=== PATIENT | female | born 1975 | race Caucasian/White ===

== ENCOUNTER 2018-01-22 05:45 | Emergency (ER) | payer BC, SELFPAY ==
[2018-01-22 05:46] VITALS: BP 158/87; PULSE 83; RESP 16; TEMP 36.7; O2SAT 100; BMI 38.6
--- NOTE | 2018-01-22 06:04 | CT_ITS ---
STUDY: CT ABDOMEN AND PELVIS WITHOUT CONTRAST REASON FOR EXAM: Female, 42 years old. Abdominal pain RADIATION DOSAGE (If Supplied By Facility): CTDIvol = ( 23.40 ) mGy, DLP = ( 1303.76 ) mGycm TECHNIQUE: Transaxial images were obtained from the dome of the diaphragm to the symphysis pubis without oral contrast, and without intravenous contrast. Sagittal and coronal images were reconstructed. Individualized dose optimization techniques were used for this CT. COMPARISON: 08/09/2017 FINDINGS: The visualized lung bases are unremarkable. There are nonenlarged calcified mediastinal and RIGHT hilar lymph nodes. Normal liver. Normal gallbladder and extrahepatic biliary system. Normal spleen. Normal pancreas. Normal bilateral adrenal glands. Normal right kidney. Normal left kidney. Normal visualized stomach. Normal small intestine. Normal colon. The appendix is visualized and appears normal. Normal abdominal aorta. Normal inferior vena cava. Normal retroperitoneum. Normal urinary bladder. The uterus and ovaries are unremarkable There is NO ascites, free air, abscess or adenopathy. Normal abdominal wall. Normal osseous structures. CT/Abdomen/Pelvis without Cont IMPRESSION: There are are NO kidney stones. There is NO hydronephrosis. Normal visualized stomach. Normal small intestine. Normal colon. The appendix is visualized and appears normal. The uterus and ovaries are unremarkable There is NO ascites, free air, abscess or adenopathy. Electronically Signed: Vasiliy Damon MD at 6:47 EDT , Service support ,
--- NOTE | 2018-01-22 06:05 | ED.VISSUMM ---
- ER Visit Summary Date of Service: 01/22/18 Chief Complaint: Abdominal pain] History of Present Illness: The patient is a 42 F [presents the emergency department with abdominal pain. She has had 2 episodes of sharp severe fleeting pain in the mid upper abdomen and left upper quadrant. She is nauseated. No vomiting. Bowel movements have been normal. No fevers or chills. Eating did not make it worse. She had emergency surgery for an incarcerated hernia 6 months ago. She has no other abdominal surgeries medical problems] Physical Examination: [] 158/87 WN WD NAD PERRL EOMI MMM NECK supple and nontender, no masses RRR no murmur rub or gallop, no peripheral edema, symmetric radial pulses CTAB no respiratory distress ABDOMEN is soft quadrant tenderness, normal bowel sounds, no distension, no rebound or guarding SKIN is warm and dry no rashes Alert and Oriented x3, CN II-XII in tact, no motor or sensory deficits, gait normal No lymphadenopathy Test Results: [] Emergency Department Course and Treatment: [She remained asymptomatic in the emergency department. She was able to move around without pain. Labs and CT were unremarkable. I did precaution her about reasons for which to return. Pain that stays or gradually worsens. Vomiting. Inability to have a bowel movement or fevers. She understands and is agreeable to the plan she will follow-up with her primary care doctor 5-7 days] Treatment Plan: [] Disposition: [Discharge] Impression: [Mid upper abdominal pain] This note was generated with [employer] dictation software. It may contain incorrect words, spelling, and punctuation that were not noted in review of the chart prior to signing ED Disposition - Plan for ED Patient: Chief Complaint: Abd Pain Referrals: Care Physician,No Primary [Primary Care Provider] -
[2018-01-22 06:18] LABS: Absolute Lymphocyte Count 2.47 X10^3/ul (0.83-4.51); Absolute Neutrophil Count 4.6 X10^3/uL (2.0-7.7); Basophil# 0.04 X10^3/uL; Basophil% 0.5 % (0-1); Eosinophil# 0.38 X10^3/uL; Eosinophils% 4.6 % (0-5); Hematocrit 38.5 % (37-47); Hemoglobin 12.6 g/dl (12.0-15.0); Lymphocyte # 2.47 X10^3/ul (4.0); Mean Corp Hgb Conc 32.7 g/gl (32-36); Mean Corpuscular Hgb 28.4 pg (27.0-32.0); Mean Corpuscular Volume 86.7 fL (81-99); Mean Platelet Vol. 11.9 fl (6.2-12.0); Monocyte# 0.74 X10^3/uL; Neutrophil # 4.58 X10^3/uL (2.7-7.7); Neutrophil % 55.7 % (47-70); Platelet Count 220 K/mm3 (150-450); RBC Distribution Width CV 13.9 % (11.6-14.6); RBC Distribution Width SD 43.6 fl (35.1-43.9); Red Blood Count 4.44 M/mm3 (4.2-5.4); White Blood Count 8.2 K/mm3 (4.4-11.0)
[2018-01-22 06:19] LABS: POSITIVE COUNT NO; POSITIVE DIFFERENTIAL NO; POSITIVE MORPHOLOGY NO
[2018-01-22 06:36] LABS: AST(SGOT) 14 U/L (15-37); Alanine Aminotransfer ALT/SGPT 10 U/L (13-56); Albumin, Serum 3.6 g/dL (3.2-5.0); Alkaline Phosphatase 82 U/L (45-117); Anion Gap 7 (5-15); BUN 10 mg/dL (7-18); BUN/Creat Ratio 13.7 RATIO (10-20); Calcium,Total 8.6 mg/dL (8.5-10.1); Chloride 102 mmol/L (98-107); Creatinine, Serum 0.73 mg/dL (0.55-1.02); EST Glomerular Filtration Rate 93 mL/min (>60); Est Glom Filt Rate - Afr Amer 112 mL/min (>60); Estimated Creatinine Clearance 97.63 ml/min; Globulin 3.6 g/dL (2.2-4.2); Glucose 98 mg/dL (74-106); Lipase 134 U/L (73-393); Potassium 3.7 mmol/L (3.5-5.1); Protein, Total 7.2 g/dL (6.4-8.2); Sodium Level 139 mmol/L (136-145)
[2018-01-22 06:36] LABS: Bacteria 0 SEEN /hpf (None Seen); Mucous, Urine 0 SEEN /hpf (<or=2+); Red Blood Cells-Urine 0 SEEN /hpf (0-5); White Blood Cells 0 SEEN /hpf (0-5)
[2018-01-22 06:38] LABS: Color, Urine Straw (Yellow); Glucose, Dipstick Normal (Normal); Ketone-Dipstick Negative (Negative); Leukocyte Esterase-Dipstick Negative /ul (Negative); Nitrite-Dipstick Negative (Negative); Occult Blood-Urine Negative /ul (Negative); Protein-Dipstick Negative (Negative); Urine Bilirubin Dipstick Negative (Negative); Urine Clarity Clear (Clear); Urine Urobilinogen Normal (Normal)
[2018-01-22 06:45] LABS: Squamous Epithelial Cells - UA 0-5 SEEN /hpf (5-10)
--- NOTE | 2018-01-22 06:54 | ED.DEP ---
ED Disposition - Plan for ED Patient: Chief Complaint: Abd Pain Instructions: ED Abdominal Pain Unkn Cause Referrals: Hattie Hale DO [STAFF PHYSICIAN] - 1 Week
[2018-01-22 07:04] VITALS: BP 105/58; PULSE 63; RESP 16; O2SAT 100
== END 2018-01-22 07:05 | disposition home or self-care (01) ==
PROVIDERS: Emergency Provider Emergency Medicine
DX: R10.12 Left upper quadrant pain (principal); R11.0 Nausea; E66.9 Obesity, unspecified
CPT/HCPCS: 74176; 80053; 81001; 83690; 85025; 99283; A4216

== ENCOUNTER → 2019-01-16 12:03 | Outpatient (CLI) | payer BC, SELFPAY ==
[2019-01-16 12:18] LABS: Absolute Lymphocyte Count 1.62 X10^3/ul (0.83-4.51); Absolute Neutrophil Count 6.2 X10^3/uL (2.0-7.7); Basophil# 0.03 X10^3/uL; Basophil% 0.3 % (0-1); Eosinophil# 0.16 X10^3/uL; Eosinophils% 1.8 % (0-5); Hematocrit 39.5 % (37-47); Hemoglobin 13.1 g/dl (12.0-15.0); Lymphocyte # 1.62 X10^3/ul (4.0); Lymphocyte % 18.5 % (19-41); Mean Corp Hgb Conc 33.2 g/gl (32-36); Mean Corpuscular Hgb 29.1 pg (27.0-32.0); Mean Corpuscular Volume 87.8 fL (81-99); Mean Platelet Vol. 11.5 fl (6.2-12.0); Neutrophil # 6.24 X10^3/uL (2.7-7.7); Neutrophil % 71.3 % (47-70); Platelet Count 220 K/mm3 (150-450); RBC Distribution Width CV 13.6 % (11.6-14.6); RBC Distribution Width SD 44.2 fl (35.1-43.9); White Blood Count 8.8 K/mm3 (4.4-11.0)
[2019-01-16 12:19] LABS: POSITIVE COUNT NO; POSITIVE DIFFERENTIAL NO; POSITIVE MORPHOLOGY NO
[2019-01-16 12:56] LABS: Anion Gap 4 (5-15); BUN 15 mg/dL (7-18); BUN/Creat Ratio 22.9 RATIO (10-20); Calcium,Total 8.9 mg/dL (8.5-10.1); Chloride 106 mmol/L (98-107); Creatinine, Serum 0.66 mg/dL (0.55-1.02); EST Glomerular Filtration Rate 105 mL/min (>60); Est Glom Filt Rate - Afr Amer 127 mL/min (>60); Glucose 89 mg/dL (74-106); Potassium 3.7 mmol/L (3.5-5.1); Sodium Level 138 mmol/L (136-145); Thyroid Stim Hormone (TSH) 1.81 uIU/mL (0.358-3.74)
== END ==
PROVIDERS: Visit Provider Family Medicine Geriatric Medicine
DX: E78.5 Hyperlipidemia, unspecified (principal); R53.83 Other fatigue
CPT/HCPCS: 36415; 80048; 84443; 85025

== ENCOUNTER → 2019-03-23 17:20 | Outpatient (CLI) | payer BC, SELFPAY ==
--- NOTE | 2019-03-23 17:42 | RAD_ITS ---
STUDY: X-RAY - LUMBAR SPINE REASON FOR EXAM: Female, 43 years old. Low back pain TECHNIQUE: 3 view(s) of the lumbar spine were obtained. COMPARISON: None FINDINGS: Normal lumbar lordosis. There is no substantial scoliosis. There is a normal alignment of the vertebrae. Minor chronic wedging of superior endplates of T10 and T11 No evidence for acute fracture or subluxation.. Disc space heights are well-maintained although there is mild multilevel endplate spurring The soft tissue structures are unremarkable. RAD/Lumbar Spine 2 or 3 Views IMPRESSION: Mild spondylosis. No evidence for acute fracture Electronically Signed: Stanley Patel MD at 20:47 EDT , Service support ,
[2019-03-23 17:44] LABS: Absolute Lymphocyte Count 1.88 X10^3/ul (0.83-4.51); Absolute Neutrophil Count 6.1 X10^3/uL (2.0-7.7); Basophil# 0.02 X10^3/uL; Basophil% 0.2 % (0-1); Eosinophils% 2.3 % (0-5); Hematocrit 41.2 % (37-47); Hemoglobin 13.5 g/dl (12.0-15.0); Lymphocyte # 1.88 X10^3/ul (4.0); Lymphocyte % 21.4 % (19-41); Mean Corp Hgb Conc 32.8 g/gl (32-36); Mean Corpuscular Hgb 28.5 pg (27.0-32.0); Mean Corpuscular Volume 87.1 fL (81-99); Mean Platelet Vol. 11.6 fl (6.2-12.0); Monocyte# 0.54 X10^3/uL; Monocyte% 6.1 % (0-10); Neutrophil # 6.13 X10^3/uL (2.7-7.7); Neutrophil % 69.8 % (47-70); Platelet Count 249 K/mm3 (150-450); RBC Distribution Width CV 13.6 % (11.6-14.6); RBC Distribution Width SD 42.6 fl (35.1-43.9); Red Blood Count 4.73 M/mm3 (4.2-5.4); White Blood Count 8.8 K/mm3 (4.4-11.0)
[2019-03-23 17:46] LABS: POSITIVE COUNT NO; POSITIVE DIFFERENTIAL NO; POSITIVE MORPHOLOGY NO
[2019-03-23 18:05] LABS: ALB/GLOB Ratio 1.1 RATIO (0.9-2.4); AST(SGOT) 19 U/L (15-37); Alanine Aminotransfer ALT/SGPT 12 U/L (13-56); Albumin, Serum 3.8 g/dL (3.2-5.0); Alkaline Phosphatase 80 U/L (45-117); Anion Gap 2 (5-15); BUN 7 mg/dL (7-18); BUN/Creat Ratio 10.6 RATIO (10-20); Calcium,Total 9.1 mg/dL (8.5-10.1); Chloride 106 mmol/L (98-107); Creatinine, Serum 0.66 mg/dL (0.55-1.02); EST Glomerular Filtration Rate 103 mL/min (>60); Est Glom Filt Rate - Afr Amer 125 mL/min (>60); Globulin 3.5 g/dL (2.2-4.2); Glucose 88 mg/dL (74-106); Potassium 3.9 mmol/L (3.5-5.1); Protein, Total 7.3 g/dL (6.4-8.2); Sodium Level 138 mmol/L (136-145)
== END ==
LOC: POLAB3 17:20
PROVIDERS: Visit Provider Family Medicine Geriatric Medicine
DX: R10.9 Unspecified abdominal pain (principal); M54.9 Dorsalgia, unspecified
CPT/HCPCS: 36415; 72100; 80053; 85025

== ENCOUNTER → 2019-03-23 17:43 | Outpatient (CLI) | payer BC, SELFPAY ==
--- NOTE | 2019-03-23 17:40 | CT_ITS ---
STUDY: CT ABDOMEN AND PELVIS WITH CONTRAST REASON FOR EXAM: Female, 43 years old. Right lower quadrant and right flank pain for one week RADIATION DOSAGE (If Supplied By Facility): CTDIvol = ( 16.82 ) mGy, DLP = ( 1341.55 ) mGycm TECHNIQUE: Transaxial images were obtained from the dome of the diaphragm to the symphysis pubis with oral contrast. 100ml IV/Oral Isovue 300 was administered. Sagittal and coronal images were reconstructed. Individualized dose optimization techniques were used for this CT. COMPARISON: 01/22/2018 FINDINGS: The visualized lung bases are unremarkable. The visualized portions of the heart are within normal limits. Normal liver. Normal gallbladder and extrahepatic biliary system. Normal spleen. Normal pancreas. Normal bilateral adrenal glands. Normal right kidney. Normal left kidney. Normal visualized stomach. Normal small intestine. There are multiple colonic diverticula consistent with diverticulosis. The appendix is visualized and appears normal. Normal abdominal aorta. Normal inferior vena cava. Normal retroperitoneum. Normal urinary bladder. Retroverted uterus. Normal abdominal wall. Normal osseous structures. CT/Abdomen/Pelvis WITH Contrast IMPRESSION: No CT evidence of acute abdominopelvic pathology. No evidence of appendicitis, acute intestinal pathology, or acute obstructive uropathy. Electronically Signed: Oscar Melendrez MD at 21:48 EDT Tel , Service support ,
== END ==
PROVIDERS: Referring Provider Family Medicine Geriatric Medicine; Visit Provider Family Medicine Geriatric Medicine
DX: R10.9 Unspecified abdominal pain (principal)
CPT/HCPCS: 74177; Q9967

== ENCOUNTER → 2019-07-22 16:31 | Outpatient (CLI) | payer BC, SELFPAY ==
[2019-07-22 17:26] LABS: Absolute Lymphocyte Count 1.47 X10^3/uL (0.83-4.51); Absolute Neutrophil Count 3.4 X10^3/uL (2.0-7.7); Basophil# 0.04 X10^3/uL; Basophil% 0.7 % (0-1); Eosinophil# 0.13 X10^3/uL; Eosinophils% 2.3 % (0-5); Hematocrit 40.6 % (37-47); Lymphocyte # 1.47 X10^3/ul (4.0); Lymphocyte % 25.5 % (19-41); Mean Corpuscular Hgb 28.6 pg (27.0-32.0); Mean Corpuscular Volume 89.4 fL (81-99); Mean Platelet Vol. 11.7 fl (6.2-12.0); Monocyte% 12.2 % (0-10); NRBC Flagged by Analyzer 0 % (0-5); Neutrophil # 3.41 X10^3/uL (2.7-7.7); Neutrophil % 59.1 % (47-70); Platelet Count 221 K/mm3 (150-450); RBC Distribution Width CV 13.2 % (11.6-14.6); RBC Distribution Width SD 43.2 fl (35.1-43.9); Red Blood Count 4.54 M/mm3 (4.2-5.4); White Blood Count 5.8 K/mm3 (4.4-11.0)
[2019-07-22 17:51] LABS: AST(SGOT) 15 U/L (15-37); Alanine Aminotransfer ALT/SGPT 16 U/L (13-56); Albumin, Serum 3.4 g/dL (3.2-5.0); Alkaline Phosphatase 72 U/L (45-117); Anion Gap 6 (5-15); BUN 7 mg/dL (7-18); BUN/Creat Ratio 11.5 RATIO (10-20); Calcium,Total 8.7 mg/dL (8.5-10.1); Chloride 106 mmol/L (98-107); Creatinine, Serum 0.61 mg/dL (0.55-1.02); EST Glomerular Filtration Rate 114 mL/min (>60); Est Glom Filt Rate - Afr Amer 138 mL/min (>60); Globulin 3.5 g/dL (2.2-4.2); Glucose 88 mg/dL (74-106); Protein, Total 6.9 g/dL (6.4-8.2); Sodium Level 140 mmol/L (136-145); Thyroid Stim Hormone (TSH) 2.47 uIU/mL (0.358-3.74)
== END ==
PROVIDERS: Visit Provider Family Medicine Geriatric Medicine
DX: I10 Essential (primary) hypertension (principal)
CPT/HCPCS: 36415; 80053; 84443; 85025

== ENCOUNTER → 2019-07-28 15:05 | Outpatient (CLI) | payer BC, SELFPAY | PROVIDERS: Family Provider Family Medicine Geriatric Medicine; PCP Family Medicine Geriatric Medicine; Referring Provider Family Medicine Geriatric Medicine; Visit Provider Family Medicine Geriatric Medicine | DX: R68.83 Chills (without fever) (principal) | CPT/HCPCS: 87633 ==

== ENCOUNTER → 2019-12-03 13:09 | Outpatient (CLI) | payer BC, SELFPAY ==
--- NOTE | 2019-12-03 13:33 | CT_ITS ---
STUDY: CT BRAIN WITHOUT CONTRAST REASON FOR EXAM: Female, 44 years old. PT STATED HEADACHE X 2 DAYS, SENT BY PCP RADIATION DOSAGE (If Supplied By Facility): CTDIvol = ( 60.81 ) mGy, DLP = ( 998.67 ) mGycm TECHNIQUE: Transaxial CT imaging of the brain was performed without administration of intravenous contrast material. Individualized dose optimization techniques were used for this CT. COMPARISON: No relevant priors. FINDINGS: Normal soft tissue structures. Normal calvarium. Normal size ventricles and extra-axial spaces for the patient''s age. Normal white matter tracts of the cerebral hemispheres. Normal basal ganglia and thalami. Normal brainstem. Normal cerebellum. There is no intracranial hemorrhage. There are no findings of an acute ischemic infarction. There is a 1.1 cm retention cyst or polyp at the base of the left maxillary sinus. CT/Brain/Head without Contrast IMPRESSION: Normal unenhanced CT scan of the brain. 1.1 cm retention cyst or polyp at the base of the left maxillary sinus. Electronically Signed: Jose Sandoval, at 13:58 EDT , Service support ,
[2019-12-03 16:16] LABS: Absolute Lymphocyte Count 1.74 X10^3/uL (0.83-4.51); Absolute Neutrophil Count 4.9 X10^3/uL (2.0-7.7); Anion Gap 3 (5-15); BUN 8 mg/dL (7-18); BUN/Creat Ratio 11.9 RATIO (10-20); Basophil# 0.04 X10^3/uL; Basophil% 0.5 % (0-1); Calcium,Total 7.6 mg/dL (8.5-10.1); Chloride 107 mmol/L (98-107); Creatinine, Serum 0.67 mg/dL (0.55-1.02); EST Glomerular Filtration Rate 101 mL/min (>60); Eosinophil# 0.15 X10^3/uL; Est Glom Filt Rate - Afr Amer 122 mL/min (>60); Glucose 83 mg/dL (74-106); Hematocrit 39.2 % (37-47); Hemoglobin 12.4 g/dL (12.0-15.0); Lymphocyte # 1.74 X10^3/ul (4.0); Lymphocyte % 23.5 % (19-41); Mean Corp Hgb Conc 31.6 g/dL (32-36); Mean Corpuscular Volume 91.6 fL (81-99); Mean Platelet Vol. 11.6 fl (6.2-12.0); Monocyte# 0.55 X10^3/uL; Monocyte% 7.4 % (0-10); NRBC Flagged by Analyzer 0 % (0-5); Neutrophil # 4.89 X10^3/uL (2.7-7.7); Neutrophil % 66.2 % (47-70); Platelet Count 219 K/mm3 (150-450); Potassium 3.9 mmol/L (3.5-5.1); RBC Distribution Width CV 12.9 % (11.6-14.6); RBC Distribution Width SD 42.8 fl (35.1-43.9); Red Blood Count 4.28 M/mm3 (4.2-5.4); Sodium Level 139 mmol/L (136-145); White Blood Count 7.4 K/mm3 (4.4-11.0)
== END ==
PROVIDERS: PCP Family Medicine Geriatric Medicine; Referring Provider Family Medicine Geriatric Medicine; Visit Provider Family Medicine Geriatric Medicine
DX: G43.909 Migraine, unspecified, not intractable, without status migrainosus (principal); N39.0 Urinary tract infection, site not specified
CPT/HCPCS: 36415; 70450; 80048; 85025; 87086; 87088

== ENCOUNTER → 2019-12-21 11:08 | Outpatient (CLI) | payer BC, SELFPAY | LOC: PSN 11:11 | PROVIDERS: PCP Family Medicine Geriatric Medicine; Referring Provider Family Medicine Geriatric Medicine; Visit Provider Family Medicine Geriatric Medicine | DX: R05 Cough (principal) | CPT/HCPCS: 87633 ==

== ENCOUNTER 2020-05-20 06:25 | Emergency (ER) | payer BC, SELFPAY ==
[2020-05-20 06:26] VITALS: BP 153/83; PULSE 97; RESP 16; TEMP 35.8; O2SAT 100; BMI 40.9
[2020-05-20 06:28] VITALS: RESP 16
--- NOTE | 2020-05-20 07:20 | ED.DCSUM_ITS ---
- ER Visit Summary Date of Service: 05/20/20 Chief Complaint: Dysuria and frequency History of Present Illness: The patient is a 44 F who presents with dysuria and frequency that is been constant for the past 3 days. Patient states she has pressure in her lower abdomen and suprapubic area. Patient also states it feels dull and aching at times. Patient states nothing makes it better or worse. Patient states she does have some burning with urination. Patient denies any hematuria. Patient denies any flank pain. Patient does admit to some low back pain. Patient denies any fevers but admits to subjective chills. Patient admits to some nausea but denies any vomiting. Physical Examination: Vital signs are stable. Patient is afebrile. Patient is in no acute distress. Oral mucosa is pink and moist. Neck is supple. Trachea is midline. There is no JVD. Heart was regular rate and rhythm. Lungs are clear and equal bilaterally. Abdomen is soft. Bowel sounds are normal. There is some mild suprapubic tenderness. There is also some mild left upper quadrant tenderness. There is no rebound or guarding noted. There is no CVA tenderness. Extremities are intact. There is no calf tenderness or edema. Cranial nerves II through XII are intact. There are no focal motor or sensory deficits. Test Results: Urinalysis shows leukocyte esterase 500 and occult blood of 150. There are 25-50 white blood cells and 10-25 red blood cells. There is 1+ bacteria. hCG was negative. Emergency Department Course and Treatment: Patient was given a dose of Bactrim here. Patient was given a prescription for Bactrim and Pyridium. Patient was instructed to follow-up with her primary care physician in 5 to 7 days. Patient understood and was agreeable with the plan. All questions were answered. Disposition: Discharge home Impression: Urinary tract infection This note was generated with [employer] dictation software. It may contain incorrect words, spelling, and punctuation that were not noted in review of the chart prior to signing ED Disposition - Plan for ED Patient: Disposition: Home or Assisted Living Diagnosis: Urinary tract infection Instructions: ED CYSTITIS Female Adult Prescriptions: Smz/Tmp Ds [Bactrim Ds] 1 tab PO BID #6 tab Transmission Status: Pending to [facility] #30 Phenazopyridine HCl [Pyridium] 200 mg PO TID #6 tab Transmission Status: Pending to [facility] #30 Referrals: Hermilo Ray Chi, MD [Primary Care Provider] - 5-7 Days
[2020-05-20 07:26] LABS: Mucous, Urine 0 SEEN /hpf (<or=2+)
[2020-05-20 07:29] LABS: Internal QC Validated? YES +Cl - CLEAR BKGD; Pregnancy, Urine Negative Negative
[2020-05-20 08:35] LABS: Color, Urine Yellow (Yellow); Glucose, Dipstick Normal (Normal); Ketone-Dipstick Negative (Negative); Leukocyte Esterase-Dipstick 500 /ul (Negative); Nitrite-Dipstick Negative (Negative); Occult Blood-Urine 150 /ul (Negative); Protein-Dipstick 30 mg/dl (Negative); Urine Bilirubin Dipstick Negative (Negative); Urine Clarity Sl. Cloudy (Clear); Urine Urobilinogen Normal (Normal); Urine pH 6.5 (5.0 - 8.0)
[2020-05-20 08:43] LABS: Bacteria 1+ /hpf (None Seen); Red Blood Cells-Urine 10-25 SEEN /hpf (0-5); Squamous Epithelial Cells - UA 0-5 SEEN /hpf (5-10); White Blood Cells 25-50 SEEN /hpf (0-5)
[2020-05-20 08:58] VITALS: BP 122/59; PULSE 83; RESP 18
[2020-05-20] MEDS: Smz/Tmp Ds Tablet 1 TABLET PO (08:58)
== END 2020-05-20 09:03 | disposition home or self-care (01) ==
PROVIDERS: Emergency Provider Emergency Medicine; PCP Family Medicine Geriatric Medicine
DX: N39.0 Urinary tract infection, site not specified (principal)
CPT/HCPCS: 81001; 81025; 99283

== ENCOUNTER 2020-05-24 05:27 | Emergency (ER) | payer BC, SELFPAY ==
[2020-05-24] VITALS (9 sets, daily range): BP systolic 100–152; BP diastolic 58–106; PULSE 94–128; RESP 18–24; TEMP 36.8–39.4; O2SAT 92–97; BMI 39.4
--- NOTE | 2020-05-24 05:38 | RAD_ITS ---
STUDY: X-RAY CHEST REASON FOR EXAM: Female, 44 years old. FEVER -- RECENT UTI -- C/O NO PROBLEMS WITH CHEST TECHNIQUE: Single AP portable view x 2of the chest. COMPARISON: None. FINDINGS: The lungs are underexpanded. The lungs are clear and expanded. There is no demonstrated pleural abnormality. Normal size heart. Normal mediastinum and cas. Normal visualized pulmonary arteries. Normal visualized aortic arch and descending thoracic aorta. There are diffuse degenerative changes of the visualized thoracic spine. Normal visualized ribs, clavicles, and shoulders. There is no demonstrated abnormality of the visualized soft tissue structures of the upper abdomen. RAD/Chest 1 View (Portable) IMPRESSION: Underexpansion of the lungs. No focal infiltrate. Electronically Signed: Dixie Patel MD at 6:02 EDT Tel , Service support ,
[2020-05-24] MEDS: Acetaminophen 500 MG Tablet 1000 MG PO (05:51)
[2020-05-24] MEDS: 0.9% Normal Saline 1,000 ML 999 ML IV (05:51)
[2020-05-24] MEDS: Ondansetron 4 MG/2 ML Vial IV (05:52)
[2020-05-24 05:53] LABS: Absolute Lymphocyte Count 0.65 X10^3/uL (0.83-4.51); Absolute Neutrophil Count 10.2 X10^3/uL (2.0-7.7); Basophil# 0.03 X10^3/uL; Basophil% 0.3 % (0-1); Eosinophil# 0.13 X10^3/uL; Eosinophils% 1.1 % (0-5); Hematocrit 42.4 % (37-47); Lymphocyte # 0.65 X10^3/ul (4.0); Lymphocyte % 5.5 % (19-41); Mean Corpuscular Hgb 28.3 pg (27.0-32.0); Mean Corpuscular Volume 85.8 fL (81-99); Mean Platelet Vol. 11.1 fl (6.2-12.0); Monocyte# 0.82 X10^3/uL; Monocyte% 6.9 % (0-10); NRBC Flagged by Analyzer 0 % (0-5); Neutrophil # 10.18 X10^3/uL (2.7-7.7); Neutrophil % 85.9 % (47-70); Platelet Count 232 K/mm3 (150-450); RBC Distribution Width CV 13.8 % (11.6-14.6); RBC Distribution Width SD 42.6 fl (35.1-43.9); Red Blood Count 4.94 M/mm3 (4.2-5.4); White Blood Count 11.9 K/mm3 (4.4-11.0)
--- NOTE | 2020-05-24 05:56 | ED.VISSUMM ---
- ER Visit Summary Date of Service: 05/24/20 Chief Complaint: Fever History of Present Illness: The patient is a [address] Ray. She reports she has a fever that began 3 days ago. Is been 103.9 degrees. She has finished a course of Bactrim for a urinary tract infection a few days ago. Patient does report she has a mild nonproductive cough. She has not had any contact with coronavirus that she knows of. She does wear a mask. She denies any chest pain or shortness of breath. Patient denies abdominal pain. She is had nausea without vomiting. No diarrhea. She denies dysuria or frequency. Her last menstrual period was approximately 1 month ago. She denies any vaginal bleeding or discharge. Patient does complain of diffuse myalgias, generalized weakness, and a headache that is 10 on 10 severity. It is a diffuse sharp pain. She has had similar headaches previously. Physical Examination: Vitals: 103.0, 150/71, 125, 18, 97% on room air which is not hypoxic. General: Well-nourished and well-developed. Head: Normocephalic atraumatic. Neck: Supple, no lymphadenopathy. No JVD. Nontender. Cardiovascular: Tachycardic regular rhythm. No murmurs. Respiratory: No respiratory distress. Clear to auscultation bilaterally. Abdominal: Soft, nontender, nondistended, normal bowel sounds. No guarding, rebound, or peritoneal signs. Back: Nontender. Extremities: Nontender, no edema. Skin: Normal color, no rash. Neurologic: Alert and oriented ?3. Cranial nerves II through XII are intact. Normal strength and sensation. Psych: Normal affect. Test Results: CBC shows a white count of 11.9 with 86 segmented neutrophils and 6 lymphocytes. test is negative. CBC shows a sodium of 135 and glucose of 124. LFTs show globulin 4.3. Lactic acid is 1.0. Clinical Impression(s) from Imaging Studies Chest X-Ray 05/24/20 05:38 IMPRESSION: Underexpansion of the lungs. No focal infiltrate. Electronically Signed: Dixie Patel MD at 6:02 EDT Tel , Service support , Emergency Department Course and Treatment: Patient had an IV placed. She was given a liter normal saline. She was given Tylenol p.o. She was given Zofran IV. She is resting more comfortably. Patient feels much improved. However, she has not been able to give a urine sample at this time. Given the results of her urinalysis on May 20 she was given 2 g of Rocephin IV as I suspect this is the source of her sepsis. Chart review shows patient had a urinalysis on May 20 that showed blood, leukocytes, 10-25 red blood cells, 25-50 white blood cells, and 1+ bacteria. This was not sent for culture. Her prior and urine cultures have shown mixed gram-positive organisms. Treatment Plan: Patient will be turned over to the oncoming doctor for results of her urinalysis and disposition. Disposition: Pending Impression: 1. Sepsis. This note was generated with [employer] dictation software. It may contain incorrect words, spelling, and punctuation that were not noted in review of the chart prior to signing ED Disposition - Plan for ED Patient: Referrals: Hermilo Ray Chi, MD [Primary Care Provider] -
[2020-05-24 06:00] LABS: Internal QC Validated? YES +Cl - CLEAR BKGD; Pregnancy, Serum, hCG Quali. NEGATIVE Negative
[2020-05-24 06:09] LABS: ALB/GLOB Ratio 0.8 RATIO (0.9-2.4); AST(SGOT) 21 U/L (15-37); Alanine Aminotransfer ALT/SGPT 14 U/L (13-56); Albumin, Serum 3.4 g/dL (3.2-5.0); Alkaline Phosphatase 74 U/L (45-117); Anion Gap 7 (5-15); BUN 8 mg/dL (7-18); BUN/Creat Ratio 7.8 RATIO (10-20); Calcium,Total 8.5 mg/dL (8.5-10.1); Chloride 103 mmol/L (98-107); Creatinine, Serum 1.02 mg/dL (0.55-1.02); EST Glomerular Filtration Rate 62 mL/min (>60); Est Glom Filt Rate - Afr Amer 76 mL/min (>60); Estimated Creatinine Clearance 68.44 ml/min; Globulin 4.3 g/dL (2.2-4.2); Glucose 124 mg/dL (74-106); Potassium 3.8 mmol/L (3.5-5.1); Protein, Total 7.7 g/dL (6.4-8.2); Sodium Level 135 mmol/L (136-145)
[2020-05-24] MEDS: Morphine 4 MG/ML Syringe IV (06:22)
[2020-05-24 07:06] LABS: International Normalized Ratio 1.2
[2020-05-24 07:07] LABS: Partial Thromboplast Time 30.3 Seconds (24.1-36.2)
[2020-05-24 07:41] LABS: Mucous, Urine 0 SEEN /hpf (<or=2+)
[2020-05-24 07:54] LABS: Color, Urine Yellow (Yellow); Glucose, Dipstick Normal (Normal); Ketone-Dipstick 50 mg/dl (Negative); Leukocyte Esterase-Dipstick 500 /ul (Negative); Nitrite-Dipstick Positive (Negative); Occult Blood-Urine 150 /ul (Negative); Protein-Dipstick 100 mg/dl (Negative); Urine Bilirubin Dipstick Negative (Negative); Urine Clarity Sl. Cloudy (Clear); Urine Urobilinogen Normal (Normal)
[2020-05-24 08:01] LABS: Bacteria 2+ /hpf (None Seen); Red Blood Cells-Urine 10-25 SEEN /hpf (0-5); Squamous Epithelial Cells - UA 0-5 SEEN /hpf (5-10); White Blood Cells 25-50 SEEN /hpf (0-5)
--- NOTE | 2020-05-24 09:43 | ED.VISSUMM ---
- ER Visit Summary Date of Service: 05/24/20 Chief Complaint: [] History of Present Illness: The patient is a 44 F [] Physical Examination: [] Test Results: [] Emergency Department Course and Treatment: [] Treatment Plan: [] Disposition: [] Impression: [] This note was generated with [employer] dictation software. It may contain incorrect words, spelling, and punctuation that were not noted in review of the chart prior to signing ED Disposition - Plan for ED Patient: Disposition: Home or Assisted Living Diagnosis: Complicated urinary tract infection Instructions: ED CYSTITIS Female Adult Prescriptions: Ciprofloxacin [Cipro] 500 mg PO BID #14 tab Transmission Status: Pending to [facility] #30 Referrals: Hermilo Ray Chi, MD [Primary Care Provider] - 1 Day for another exam
--- NOTE | 2020-05-24 20:20 | ED.RN ---
LAB CALLED WITH POSITIVE BLOOD CULTURES. SPOKE WITH DR. HOUSTON. PATIENT ADVISED TO COME INTO THE ER FOR IV ATX ADMISSION. SPOKE WITH PATIENT SHE IS AWARE OF TESTS RESULTS.
== END 2020-05-24 11:14 | disposition home or self-care (01) ==
PROVIDERS: Emergency Provider Emergency Medicine; PCP Family Medicine Geriatric Medicine
DX: A41.9 Sepsis, unspecified organism (principal); N39.0 Urinary tract infection, site not specified; R05 Cough; R51 Headache; R53.1 Weakness
CPT/HCPCS: 71045; 80053; 81001; 83605; 84703; 85025; 85610; 85730; 87040; 87077; 87086; 87088; 87186; 87635; 96361; 96365; 96375; 99285; C9803; J7030; A4216; J0696; J2405; U0003

== ENCOUNTER 2020-05-24 20:55 | Inpatient (IN) | payer BC, SELFPAY ==
[2020-05-24 05:28] VITALS: BMI 39.4
[2020-05-24 20:55] VITALS: BP 138/77; PULSE 105; RESP 16; TEMP 35.6; O2SAT 98; BMI 39.1
[2020-05-24 21:16] VITALS: BP 125/66; PULSE 91; PULSE 93; RESP 15; RESP 16; TEMP 37.4; O2SAT 97
--- NOTE | 2020-05-24 21:16 | ED.DCSUM_ITS ---
History of Present Illness Chief Complaint: Fever Informant: Patient Onset: Weeks Context: Gradual Onset Current Severity: Mild Maximum Severity: Moderate Narrative: Patient presents with 1 week history of UTI symptoms. She completed a 3-day course of Bactrim without improvement. She was seen in the ER early this morning with a temperature of 103. She was found to have continued UTI and dis charged home with Cipro. I was notified by charge nurse guillermo that 1 of her blood cultures came back positive with gram-negative rods. Patient was called and advised to come back in for IV antibiotics. She does report nausea and vomiting today. She denies diarrhea. She states her urinary symptoms are improving but she continues to have body aches. Past Medical History - Allergies and Home Meds Allergies/Adverse Reactions: Allergies acetaminophen [From [place]] Adverse Reaction (Verified 05/24/20 20:55) Other hydrocodone [From [place]] Adverse Reaction (Verified 05/24/20 20:55) Other Primary Care Physician: Hermilo Ray Chi, MD [Primary Care Provider] - Surgical History: herniorrhaphy, - - left wrist surgery Smoking Status: Never smoker - Family History Maternal Family History: Reports: No pertinent history Review of Systems General: Reports: Fever. Denies: Chills Eyes: Denies: Visual changes - bilaterally ENT: Denies: Bilateral ear pain Cardiovascular: Denies: Chest pain Respiratory: Denies: Dyspnea, Cough Gastrointestinal: Reports: Nausea, Vomiting. Denies: Abdominal pain Genitourinary: Reports: Dysuria, Frequency Musculoskeletal: Reports: Myalgias Neurological: Denies: Headache Hematologic: Denies: Easy bruising, Easy bleeding Allergy: Denies: Uticaria Physical Exam Vital Signs/Narrative: Vital Signs Temp Pulse Resp BP Pulse Ox 05/24/20 20:55 96.0 F L 105 H 16 138/77 H 98 Inital Vital Signs reviewed: Yes General: Well nourished, Well developed Head: Normocephalic ENT: Moist mucous membranes Neck: Supple Cardiovascular: Regular rate, Regular rhythm Respiratory: No distress, CTA bilaterally Abdomen: Soft, Nontender, Normal bowel sounds Extremities: Nontender Skin: Normal color Neurological: Alert, Oriented x3 Psychological: Normal affect Diagnostic/Tx/Re-eval Laboratory Results 05/24/20 05/24/20 05/24/20 21:10 21:10 21:10 WBC 15.6 H RBC 4.58 Hgb 12.8 Hct 40.0 MCV 87.3 MCH 27.9 MCHC 32.0 RDW Std Deviation 43.8 RDW Coeff of Collin 13.9 Plt Count 214 MPV 11.3 Immature Gran % (Auto) 0.500 Neut % (Auto) 83.5 H Lymph % (Auto) 7.4 L Irion % (Auto) 8.3 Eos % (Auto) 0.1 Baso % (Auto) 0.2 Absolute Neuts (auto) 13.0 H Absolute Lymphs (auto) 1.15 Nucleated RBC % 0 Sodium 138 Potassium 3.9 Chloride 107 Carbon Dioxide 25.0 Anion Gap 6 BUN 8 Creatinine 0.94 Estim Creat Clear Calc 74.27 Est GFR (MDRD) Af Amer 83 Est GFR (MDRD) Non-Af 69 BUN/Creatinine Ratio 8.5 L Glucose 119 H Lactic Acid 0.9 Calcium 8.4 L - Medical Decision Making Repeat blood cultures were drawn tonight. Patient was given a dose of Rocephin. She was discussed with hospitalist regarding admission for IV antibiotics. ED Disposition - Plan for ED Patient: Disposition: Acute Care Hospital [facility] Diagnosis: Bacteremia, UTI (urinary tract infection) Referrals: Hermilo Ray Chi, MD [Primary Care Provider] -
[2020-05-24 21:26] LABS: Absolute Lymphocyte Count 1.15 X10^3/uL (0.83-4.51); Basophil# 0.03 X10^3/uL; Basophil% 0.2 % (0-1); Eosinophil# 0.02 X10^3/uL; Eosinophils% 0.1 % (0-5); Hemoglobin 12.8 g/dL (12.0-15.0); Lymphocyte # 1.15 X10^3/ul (4.0); Lymphocyte % 7.4 % (19-41); Mean Corpuscular Hgb 27.9 pg (27.0-32.0); Mean Corpuscular Volume 87.3 fL (81-99); Mean Platelet Vol. 11.3 fl (6.2-12.0); Monocyte# 1.29 X10^3/uL; Monocyte% 8.3 % (0-10); NRBC Flagged by Analyzer 0 % (0-5); Neutrophil # 13.04 X10^3/uL (2.7-7.7); Neutrophil % 83.5 % (47-70); Platelet Count 214 K/mm3 (150-450); RBC Distribution Width CV 13.9 % (11.6-14.6); RBC Distribution Width SD 43.8 fl (35.1-43.9); Red Blood Count 4.58 M/mm3 (4.2-5.4); White Blood Count 15.6 K/mm3 (4.4-11.0)
[2020-05-24] MEDS: 0.9% Normal Saline 1,000 ML 150 ML IV (21:39)
[2020-05-24] MEDS: Ceftriaxone 1 GM/50 ML BAG IV (21:39)
[2020-05-24 21:44] LABS: Anion Gap 6 (5-15); BUN 8 mg/dL (7-18); BUN/Creat Ratio 8.5 RATIO (10-20); Calcium,Total 8.4 mg/dL (8.5-10.1); Chloride 107 mmol/L (98-107); Creatinine, Serum 0.94 mg/dL (0.55-1.02); EST Glomerular Filtration Rate 69 mL/min (>60); Est Glom Filt Rate - Afr Amer 83 mL/min (>60); Estimated Creatinine Clearance 74.27 ml/min; Glucose 119 mg/dL (74-106); Potassium 3.9 mmol/L (3.5-5.1); Sodium Level 138 mmol/L (136-145)
--- NOTE | 2020-05-24 21:46 | PCM.HP.STD ---
Problem List (1) Sepsis Status: Acute Qualifiers: Sepsis type: sepsis due to unspecified organism Sepsis acute organ dysfunction status: unspecified Qualified Code(s): A41.9 - Sepsis, unspecified organism (2) Bacteremia Status: Acute (3) Complicated urinary tract infection Status: Acute (4) Obesity (BMI 30-39.9) Status: Chronic History of Present Illness Date of Admission: 05/24/20 Chief Complaint: Fever, UTI, + Bld Cx GNR The patient is a 44 y/o F w/ PMHx: Obesity with recent ED evaluation on 05/20/20 and 05/24/20 history of dysuria and frequency with UTI diagnosis at that time discharged on ciprofloxacin with blood cultures drawn with 05/24/2020 preliminary blood culture 1 of 2 with gram-negative rods requested to return to the [facility] ED on evening 05/24/20 with history of initial onset on 05/20/2020 notable dysuria and suprapubic discomfort with concurrent bilateral flank discomfort described as mild to moderate, 2-3 out of 10 in discomfort, worse with urination attempts however following initial ED presentation and start of antibiotic therapy she noted improvement but did have onset of high-grade fevers on 05/24/2020 a.m. prompting return to the ED but again notes near resolution of urinary frequency, dysuria, suprapubic discomfort and flank discomfort but did states she started to have chills, body aches, nausea and occasional emesis as well as a mild frontal headache prompting evaluation. Patient was called with 1 of 2+ blood cultures therefore she returned to the ED for further evaluation. She denies any recent ill contacts or concerning COVID contacts. She lives with her who has been well. She denies any abdominal pain, diarrhea, alteration to sense of taste or smell, significant cough or dyspnea. Work-up in the ED included T 99.3, heart rate 105, BP 130/77, respiratory rate 16, 98% on room air, CBC with WC 15.6, hemoglobin 12.8, platelet 214 with left shift, BMP with glucose 119, lactic acid 0.9, urinalysis performed earlier in the day with significant findings, COVID testing pending from earlier in the day concurrently, repeat blood culture x2 and urine culture x1 pending per ED, earlier in the J chest x-ray with underexpansion with no acute cardiopulmonary findings otherwise. In the ED patient ministered Rocephin, Tylenol as well as normal saline. Past Medical History Past Medical History (Chronic Problems): Chronic Problems Obesity (BMI 30-39.9) (Chronic) Allergies acetaminophen [From [place]] Adverse Reaction (Verified 05/24/20 20:55) Other hydrocodone [From [place]] Adverse Reaction (Verified 05/24/20 20:55) Other Home Medications: Ambulatory Orders Medication Instructions Recorded Ciprofloxacin [Cipro] 500 mg PO BID #14 tab 05/24/20 Surgical History: herniorrhaphy, - - Umbilical hernia repair, right wrist surgery. 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 Denies: Weight Change HEENT: Reports: Head Aches. Denies: Sinus Congestion, Sinus Drainage Cardiovascular: Denies: Chest Pain, Palpitations Respiratory: Denies: Cough, Shortness of Breath, Shortness of breath at rest, Shortness of breath upon exertion, Sputum production Gastrointestinal: Reports: Nausea, Vomiting, - - Suprapubic pain resolved, flank pain resolved.. Denies: Abdominal Pain Genitourinary: Reports: Dysuria, Frequency, Urgency, - - Frequency, dysuria, suprapubic pain, flank pain now resolved. Musculoskeletal: Reports: Back Pain. Denies: Joint Pain, Joint Tenderness Skin: Denies: Rash, Wounds Neurological: Denies: Numbness, Tingling, Focal weakness Psychiatric: Denies: Anxiety, Depression, Homicidal Ideations, Suicidal Ideations Hematologic/ Lymphatic: Denies: Easy Bruising, Easy Bleeding VTE Information - Inpt Only VTE Present on Admission: No VTE Mechan Device Prophylaxis: SCD's VTE Pharm Prophylaxis ordered?: Yes Patient Problems: Active and Suspected Problems Bacteremia (Acute) UTI (urinary tract infection) (Acute) Sepsis (Acute) Subjective: Patient laying in the ED bed, fatigued and ill-appearing. Objective: Physical Examination: General: awake, alert, oriented x 3 and cooperative, laying in the ED bed, fatigued and ill-appearing. Skin: normal color, turgor, no icterus, cyanosis. HEENT: AT/NC, EOMI, PERRLA, dry MM, no carotid bruits or JVD noted. Lungs: CTA bilaterally, moderate effort, moderate decrease BL bases, no rales, ronchi or wheezing. Heart: Mildly tachycardic with regular rhythm; no gallop, rub audible. Abdomen: soft, obese, no specific tenderness to palpation including suprapubic region which she notes is improved, no flank discomfort with palpation either, no obvious distention, mildly hyperactive bowel sounds, no obvious HSM but habitus makes examination difficult. Extremities: no cyanosis, clubbing, or edema. Neurological: patient awake, alert, oriented x 3; cognitive function intact; pupils equally reactive to light and accomodation; cranial nerves II-XII grossly normal, moving all 4 extremities, no focal deficits, strength moderately global decrease secondary to acute presentation. Psychiatric: affect appears fatigued, ill-appearing, no acute evidence of depressive or anxiety feelings. - Physical Exam Vitals/I&O's: Vital Signs Temp Pulse Resp BP Pulse Ox 99.3 F H 93 16 125/66 H 97 05/24/20 21:16 05/24/20 21:16 05/24/20 21:16 05/24/20 21:16 05/24/20 21:16 Oxygen Delivery Method Room Air Weight: 250 lb Body Mass Index (BMI) 39.1 Laboratory Results 05/24/20 21:10: WBC 15.6 H, RBC 4.58, Hgb 12.8, Hct 40.0, MCV 87.3, MCH 27.9, MCHC 32.0, RDW Std Deviation 43.8, RDW Coeff of Collin 13.9, Plt Count 214, MPV 11.3, Immature Gran % (Auto) 0.500, Neut % (Auto) 83.5 H, Lymph % (Auto) 7.4 L, [place] % (Auto) 8.3, Eos % (Auto) 0.1, Baso % (Auto) 0.2, Absolute Neuts (auto) 13.0 H, Absolute Lymphs (auto) 1.15, Nucleated RBC % 0 05/24/20 21:10: Sodium 138, Potassium 3.9, Chloride 107, Carbon Dioxide 25.0, Anion Gap 6, BUN 8, Creatinine 0.94, Estim Creat Clear Calc 74.27, Est GFR (MDRD) Af Amer 83, Est GFR (MDRD) Non-Af 69, BUN/Creatinine Ratio 8.5 L, Glucose 119 H, Calcium 8.4 L 05/24/20 21:10: Lactic Acid Pending Current Medications Sodium Chloride () 1,000 mls @ 150 mls/hr IV .Q6H40M [facility] Last Admin: 05/24/20 21:39 Dose: 150 mls/hr Documented by: Assessment/Plan All Active Problems Complicated urinary tract infection (Acute) Bacteremia (Acute) UTI (urinary tract infection) (Acute) Sepsis (Acute) The patient is a 44 y/o F w/ PMHx: Obesity with recent ED evaluation on 05/20/20 and 05/24/20 history of dysuria and frequency with UTI diagnosis at that time discharged on ciprofloxacin with blood cultures drawn with 05/24/2020 preliminary blood culture 1 of 2 with gram-negative rods requested to return to the [facility] ED on evening 05/24/20 with history of initial onset on 05/20/2020 notable dysuria and suprapubic discomfort with concurrent bilateral flank discomfort. 1. Acute Sepsis secondary to Acute GNR Bacteremia secondary to Acute Complicated presumed GNR Urinary Tract Infection: Will admit to [facility] upon ED evaluation remarkable, pending UCx, admission CBC w/ WBC elevation and L shift, continue IVFs, monitor I/Os, continue IV Rocephin w/ transition as able pending sensitivities and speciation. Bld cx x 2 obtained in the ED upon return and pending, earlier 05/24/20 1/2 w/ GNR. Of note patient COVID testing from 05/24/2020 a.m. are pending but given history patient's presentation and symptoms consistent with her acute illness. 2. Hyperglycemia: Admission glucose 119, if continued elevations given obesity would obtain hemoglobin A1c. 3. Obesity: Weight loss and lifestyle changes encouraged. 4. GERD: We will maintain on famotidine. 5. DVT prophylaxis: SCDs, Lovenox. Inpatient E&M: 10433 Init Hosp L3
[2020-05-24 22:03] LABS: Lactic Acid 0.9 mmol/L (0.4-1.9)
[2020-05-24 22:17] VITALS: BP 110/74; PULSE 91; RESP 16; TEMP 37.2; O2SAT 97
[2020-05-24 23:21] VITALS: BP 112/78; PULSE 95; RESP 15; TEMP 37.2; O2SAT 98
[2020-05-24 23:24] VITALS: BP 142/76; PULSE 91; RESP 18; TEMP 36.6; O2SAT 98; BMI 39.9; BMI 40.0
[2020-05-25] VITALS (13 sets, daily range): BP systolic 114–135; BP diastolic 61–73; PULSE 77–96; RESP 16–18; TEMP 36.9–37.9; O2SAT 94–98
[2020-05-25] MEDS: Famotidine 20 MG Tablet PO ×3 (00:19→21:32)
[2020-05-25] MEDS: oxyCODONE 5 MG Tablet PO (00:19)
[2020-05-25 01:36] LABS: Bacteria 0 SEEN /hpf (None Seen); Mucous, Urine 0 SEEN /hpf (<or=2+)
[2020-05-25 01:46] LABS: Color, Urine Yellow (Yellow); Glucose, Dipstick Normal (Normal); Ketone-Dipstick 50 mg/dl (Negative); Leukocyte Esterase-Dipstick 500 /ul (Negative); Nitrite-Dipstick Negative (Negative); Occult Blood-Urine 25 /ul (Negative); Protein-Dipstick 30 mg/dl (Negative); Specific Gravity, Urine 1.015 (1.002-1.030); Urine Bilirubin Dipstick Negative (Negative); Urine Clarity Clear (Clear); Urine Urobilinogen 1 mg/dl (Normal)
[2020-05-25 01:52] LABS: Red Blood Cells-Urine 10-25 SEEN /hpf (0-5); White Blood Cells 25-50 SEEN /hpf (0-5)
[2020-05-25 01:53] LABS: Squamous Epithelial Cells - UA 5-10 SEEN /hpf (5-10)
[2020-05-25] MEDS: 0.9% Normal Saline 1,000 ML 150 ML IV ×4 (02:14→21:32)
[2020-05-25] MEDS: Acetaminophen 325 MG Tablet 650 MG PO ×3 (05:09→21:36)
[2020-05-25] MEDS: Ondansetron 4 MG/2 ML Vial IV ×2 (05:09→22:28)
[2020-05-25] MEDS: Morphine 2 MG/ML Syringe IV ×2 (05:10→14:46)
[2020-05-25] MEDS: Enoxaparin 40 MG/0.4 ML Syringe SC (05:11)
[2020-05-25 07:25] LABS: Absolute Lymphocyte Count 0.99 X10^3/uL (0.83-4.51); Basophil# 0.03 X10^3/uL; Basophil% 0.3 % (0-1); Eosinophil# 0.05 X10^3/uL; Eosinophils% 0.5 % (0-5); Hematocrit 34.6 % (37-47); Hemoglobin 11.2 g/dL (12.0-15.0); Lymphocyte # 0.99 X10^3/ul (4.0); Lymphocyte % 9.7 % (19-41); Mean Corp Hgb Conc 32.4 g/dL (32-36); Mean Corpuscular Hgb 28.5 pg (27.0-32.0); Mean Platelet Vol. 10.8 fl (6.2-12.0); Monocyte# 1.04 X10^3/uL; Monocyte% 10.2 % (0-10); NRBC Flagged by Analyzer 0 % (0-5); Neutrophil # 8.03 X10^3/uL (2.7-7.7); Neutrophil % 78.8 % (47-70); Platelet Count 177 K/mm3 (150-450); RBC Distribution Width CV 13.7 % (11.6-14.6); RBC Distribution Width SD 44.1 fl (35.1-43.9); Red Blood Count 3.93 M/mm3 (4.2-5.4); White Blood Count 10.2 K/mm3 (4.4-11.0)
[2020-05-25 07:51] LABS: ALB/GLOB Ratio 0.7 RATIO (0.9-2.4); AST(SGOT) 15 U/L (15-37); Alanine Aminotransfer ALT/SGPT 9 U/L (13-56); Albumin, Serum 2.5 g/dL (3.2-5.0); Alkaline Phosphatase 63 U/L (45-117); Anion Gap 4 (5-15); BUN 7 mg/dL (7-18); BUN/Creat Ratio 9.8 RATIO (10-20); Chloride 106 mmol/L (98-107); Creatinine, Serum 0.71 mg/dL (0.55-1.02); EST Glomerular Filtration Rate 94 mL/min (>60); Est Glom Filt Rate - Afr Amer 114 mL/min (>60); Estimated Creatinine Clearance 98.33 ml/min; Globulin 3.6 g/dL (2.2-4.2); Glucose 88 mg/dL (74-106); Potassium 3.4 mmol/L (3.5-5.1); Protein, Total 6.1 g/dL (6.4-8.2); Sodium Level 137 mmol/L (136-145)
--- NOTE | 2020-05-25 09:35 | CASEMGMT ---
RN SEBASTIAN Face to Face with patient for initial transition planning/care coordination assessment. RN CM introduced self and role at [facility]. Patient lying in bed, alert and oriented. Patient willing to participate in assessment and is able to answer all questions appropriately. Care providers, pharmacy, and demographics verified. Patient wishes to discharge home, denies need for home health at this time. Patient states she has no further needs or concerns at this time. CM to follow for discharge planning needs that may arise. PCP: Cory Specialists: None Preferred Pharmacy: [facility] Insurance: [place] Prescription Benefit: yes Living Will/HPOA: none LNOK: , sister Living Arrangements: Patient lives with in a townhouse. Patient is independent and able to ambulate stairs. Transportation: self, sister DME/HHC: Patient denies DME or previous HHC. Disposition Plan: Patient to discharge home with family support and follow-up plans in place. Anne Marie KEMP, RN, CM
--- NOTE | 2020-05-25 10:41 | PCM.PN.HOSP ---
Patient Problems: Active and Suspected Problems Bacteremia (Acute) UTI (urinary tract infection) (Acute) Sepsis (Acute) Subjective: Patient seen and examined. She was admitted through the ED after she was earlier seen in the ED for fevers and chills. Patient was seen initially in the ED on 05/20/2020 with dysuria and suprapubic discomfort as well as bilateral flank discomfort and was discharged home on oral antibiotic therapy. However she had fever and chills while sent home and came back to the ED on 05/24/2020. Again she was discharged home but was called back because blood cultures taken were growing gram-negative rods in 1 out of 2 samples. She is currently on IV antibiotics. Patient says she feels that symptoms have improved today. She denies any nausea, vomiting, chills, burning with urination, chest pain, diarrhea vomiting. Review of signs otherwise negative. She is currently on IV Rocephin. She has remained hemodynamically stable. Vitals/I&O's: Vital Signs Temp Pulse Resp BP Pulse Ox 98.5 F 85 16 124/73 H 95 05/25/20 08:20 05/25/20 08:20 05/25/20 08:20 05/25/20 08:20 05/25/20 08:20 Oxygen Delivery Method Room Air Weight: 255 lb 4.725 oz Body Mass Index (BMI) 39.9 Intake and Output for Last 24 Hours 05/23/20 05/24/20 05/25/20 23:59 23:59 23:59 Intake Total 50 / 50 1602.5 / 1602.5 Output Total 400 / 400 Balance 50 / 50 1202.5 / 1202.5 General: Alert, Oriented x3, Cooperative HEENT: Atraumatic, PERRLA, EOMI, Normocephalic Oral: Moist Mucosa Neck: Supple, No JVD, Negative Carotid Bruits Lungs: Clear to auscultation, Normal air movement, No rhonchi, No wheeze, No rales Cardiovascular: Regular rate, Regular Rhythm, Normal S1, Normal S2, No murmurs Abdomen: Bowel Sounds Present, Soft, Non Tender, Non-Distended, No Hepato-splenomegaly Extremities: No clubbing, No cyanosis, No edema, Capillary Refill Less than 3 Seconds Skin: No rashes, No breakdown Musculoskeletal: No Tenderness to Palpation of Joints or Extremities Lymphatic: No Cervical, Supraclavicular, or Inguinal Adenopathy Neurological: Cranial nerves II-XII grossly intact, Neuro grossly intact, Motor Exam 5/5 strength throughout Psych/Mental Status: Normal Affect, Appropriate, Alert and oriented to time, place, person, mood and affect Laboratory Results 05/24/20 21:10: WBC 15.6 H, RBC 4.58, Hgb 12.8, Hct 40.0, MCV 87.3, MCH 27.9, MCHC 32.0, RDW Std Deviation 43.8, RDW Coeff of [place]lin 13.9, Plt Count 214, MPV 11.3, Immature Gran % (Auto) 0.500, Neut % (Auto) 83.5 H, Lymph % (Auto) 7.4 L, [place] % (Auto) 8.3, Eos % (Auto) 0.1, Baso % (Auto) 0.2, Absolute Neuts (auto) 13.0 H, Absolute Lymphs (auto) 1.15, Nucleated RBC % 0 05/24/20 21:10: Sodium 138, Potassium 3.9, Chloride 107, Carbon Dioxide 25.0, Anion Gap 6, BUN 8, Creatinine 0.94, Estim Creat Clear Calc 74.27, Est GFR (MDRD) Af Amer 83, Est GFR (MDRD) Non-Af 69, BUN/Creatinine Ratio 8.5 L, Glucose 119 H, Calcium 8.4 L 05/24/20 21:10: Lactic Acid 0.9 05/25/20 00:25: Urine Color Yellow, Urine Clarity Clear, Urine pH 6.0, Ur Specific [place] 1.015, Urine Protein 30 H, Urine Glucose (UA) Normal, Urine Ketones 50 H, Urine Occult Blood 25 H, Urine Nitrite Negative, Urine Bilirubin Negative, Urine Urobilinogen 1 H, Ur Leukocyte Esterase 500 H, Urine RBC 10-25 SEEN, Urine WBC 25-50 SEEN, Ur Squamous Epith Cells 5-10 SEEN, Urine Bacteria 0 SEEN, Urine Mucus 0 SEEN 05/25/20 07:01: WBC 10.2, RBC 3.93 L, Hgb 11.2 L, Hct 34.6 L, MCV 88.0, MCH 28.5, MCHC 32.4, RDW Std Deviation 44.1 H, RDW Coeff of [place]lin 13.7, Plt Count 177, MPV 10.8, Immature Gran % (Auto) 0.500, Neut % (Auto) 78.8 H, Lymph % (Auto) 9.7 L, [place] % (Auto) 10.2 H, Eos % (Auto) 0.5, Baso % (Auto) 0.3, Absolute Neuts (auto) 8.0 H, Absolute Lymphs (auto) 0.99, Nucleated RBC % 0 05/25/20 07:01: Sodium 137, Potassium 3.4 L, Chloride 106, Carbon Dioxide 27.0, Anion Gap 4 L, BUN 7, Creatinine 0.71, Estim Creat Clear Calc 98.33, Est GFR (MDRD) Af Amer 114, Est GFR (MDRD) Non-Af 94, BUN/Creatinine Ratio 9.8 L, Glucose 88, Calcium 8.0 L, Total Bilirubin 0.50, AST 15, ALT 9 L, Alkaline Phosphatase 63, Total Protein 6.1 L, Albumin 2.5 L, Globulin 3.6, Albumin/Globulin Ratio 0.7 L Current Medications Acetaminophen (Tylenol) 650 mg PO Q6H PRN PRN PRN Reason: Pain Score 1-10/Temp > 100.7 F Last Admin: 05/25/20 05:09 Dose: 650 mg Documented by: Al Hydroxide/Mg Hydroxide (Mylanta Ii) 30 ml PO Q6H PRN PRN PRN Reason: Gastric Burning Albuterol Sulfate (Ventolin Aerosols) 2.5 mg INHALATION Q2H PRN PRN PRN Reason: Dyspnea, wheezing Enoxaparin Sodium (Lovenox) 40 mg SC DAILY@0600 [facility] Last Admin: 05/25/20 05:11 Dose: 40 mg Documented by: Famotidine (Pepcid) 20 mg PO BID [facility] Last Admin: 05/25/20 08:27 Dose: 20 mg Documented by: Guaifenesin (Robitussin) 20 ml PO Q4H PRN PRN PRN Reason: COUGH Hydralazine HCl (Apresoline Iv) 10 mg IV Q4H PRN PRN PRN Reason: SBP > 160 Sodium Chloride () 1,000 mls @ 150 mls/hr IV .Q6H40M [facility] Last Admin: 05/25/20 08:20 Dose: 150 mls/hr Documented by: Ceftriaxone Sodium (Rocephin) 1 gm in 50 mls @ 100 mls/hr IV Q24@2200 [facility] Magnesium Hydroxide (Milk Of Magnesia) 30 ml PO DAILY PRN PRN PRN Reason: Constipation Morphine Sulfate () 2 mg IV Q3H PRN PRN PRN Reason: Pain Score 6-10/10 Last Admin: 05/25/20 05:10 Dose: 2 mg Documented by: Ondansetron HCl (Zofran) 4 mg IV Q8H PRN PRN PRN Reason: NAUSEA/VOMITING Last Admin: 05/25/20 05:09 Dose: 4 mg Documented by: Oxycodone HCl (Oxyir) 5 mg PO Q4H PRN PRN PRN Reason: Pain Score 4-5/10 Last Admin: 05/25/20 00:19 Dose: 5 mg Documented by: Prochlorperazine Edisylate (Compazine Iv) 5 mg IV Q4H PRN PRN PRN Reason: Breakthrough nausea/vomiting Psyllium Hydrophilic Mucilloid (Metamucil) 1 packet PO DAILY PRN PRN PRN Reason: Constipation Senna/Docusate Sodium (Senokot-S, Laura-Colace) 2 tablet PO BID PRN PRN PRN Reason: Constipation Sodium Chloride () 10 - 40 ml IV UD PRN PRN Reason: SALINE FLUSH Temazepam (Restoril) 15 mg PO QHS PRN PRN PRN Reason: INSOMNIA Throat Lozenges (Cepacol Sore Throat Lozenge) 1 lozenge MUCOUS MEM Q2H PRN PRN PRN Reason: SORE THROAT STROKE Vital Signs/Narrative: Vital Signs Temp Pulse Resp BP Pulse Ox 05/25/20 08:20 98.5 F 85 16 124/73 H 95 05/25/20 07:59 83 05/25/20 07:40 94 Medical Necessity - Tobacco Use Smoking Status: Never smoker Tobacco Use: Non-smoker Assessment/Plan All Active Problems Bacteremia (Acute) UTI (urinary tract infection) (Acute) Sepsis (Acute) # Sepsis due to UTI she was admitted to med surg. 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 Counseled on diet and lifestyle changes. DVT prophylaxis: Lovenox Inpatient E&M: 20161 Subs Hosp L2
[2020-05-25] MEDS: Ceftriaxone 1 GM/50 ML BAG IV (21:32)
[2020-05-26] VITALS (10 sets, daily range): BP systolic 121–148; BP diastolic 56–78; PULSE 74–92; RESP 16; TEMP 36.7–38.5; O2SAT 95–99
[2020-05-26] MEDS: 0.9% Normal Saline 1,000 ML 150 ML IV ×3 (04:42→18:41)
[2020-05-26] MEDS: Enoxaparin 40 MG/0.4 ML Syringe SC (05:37)
[2020-05-26 06:12] LABS: Absolute Lymphocyte Count 0.63 X10^3/uL (0.83-4.51); Absolute Neutrophil Count 5.3 X10^3/uL (2.0-7.7); Basophil# 0.02 X10^3/uL; Basophil% 0.3 % (0-1); Eosinophil# 0.11 X10^3/uL; Eosinophils% 1.7 % (0-5); Hematocrit 35.5 % (37-47); Hemoglobin 11.3 g/dL (12.0-15.0); Lymphocyte # 0.63 X10^3/ul (4.0); Lymphocyte % 9.5 % (19-41); Mean Corp Hgb Conc 31.8 g/dL (32-36); Mean Corpuscular Hgb 28.3 pg (27.0-32.0); Mean Corpuscular Volume 88.8 fL (81-99); Monocyte# 0.49 X10^3/uL; Monocyte% 7.4 % (0-10); NRBC Flagged by Analyzer 0 % (0-5); Neutrophil # 5.33 X10^3/uL (2.7-7.7); Neutrophil % 80.6 % (47-70); Platelet Count 170 K/mm3 (150-450); RBC Distribution Width CV 13.7 % (11.6-14.6); RBC Distribution Width SD 44.5 fl (35.1-43.9); White Blood Count 6.6 K/mm3 (4.4-11.0)
[2020-05-26 06:40] LABS: Anion Gap 4 (5-15); BUN 4 mg/dL (7-18); BUN/Creat Ratio 5.6 RATIO (10-20); Calcium,Total 8.2 mg/dL (8.5-10.1); Chloride 107 mmol/L (98-107); Creatinine, Serum 0.71 mg/dL (0.55-1.02); EST Glomerular Filtration Rate 94 mL/min (>60); Est Glom Filt Rate - Afr Amer 114 mL/min (>60); Estimated Creatinine Clearance 98.33 ml/min; Glucose 110 mg/dL (74-106); Potassium 3.3 mmol/L (3.5-5.1); Sodium Level 139 mmol/L (136-145)
[2020-05-26] MEDS: Acetaminophen 325 MG Tablet 650 MG PO ×2 (08:18→17:45)
[2020-05-26] MEDS: Famotidine 20 MG Tablet PO ×2 (08:18→21:08)
--- NOTE | 2020-05-26 09:25 | PCM.PN.HOSP ---
Patient Problems: Active and Suspected Problems Bacteremia (Acute) UTI (urinary tract infection) (Acute) Sepsis (Acute) Subjective: Patient seen and examined. She complained of not being able to eat regular food yet. She denies any fever, chills, nausea or vomiting or diarrhea. She denies any chest pain or palpitations. Review of systems otherwise negative. Labs and vitals reviewed. She has remained hemodynamically stable. Potassium is 3.3 today. CBC is unremarkable with white cell count being 6.6. Vitals/I&O's: Vital Signs Temp Pulse Resp BP Pulse Ox 98.6 F 76 16 125/72 H 95 05/26/20 02:00 05/26/20 04:01 05/26/20 02:00 05/26/20 02:00 05/26/20 07:38 Oxygen Delivery Method Room Air Weight: 255 lb 4.725 oz Body Mass Index (BMI) 39.9 Intake and Output for Last 24 Hours 05/24/20 05/25/20 05/26/20 23:59 23:59 23:59 Intake Total 50 / 50 4672.5 / 4672.5 995 / 995 Output Total 1800 / 1800 Balance 50 / 50 2872.5 / 2872.5 995 / 995 General: Alert, Oriented x3, Cooperative HEENT: Atraumatic, PERRLA, EOMI, Normocephalic Oral: Moist Mucosa Neck: Supple, No JVD, Negative Carotid Bruits Lungs: Clear to auscultation, Normal air movement, No rhonchi, No wheeze, No rales Cardiovascular: Regular rate, Regular Rhythm, Normal S1, Normal S2, No murmurs Abdomen: Bowel Sounds Present, Soft, Non Tender, Non-Distended, No Hepato-splenomegaly Extremities: No clubbing, No cyanosis, No edema, Capillary Refill Less than 3 Seconds Skin: No rashes, No breakdown Musculoskeletal: No Tenderness to Palpation of Joints or Extremities Lymphatic: No Cervical, Supraclavicular, or Inguinal Adenopathy Neurological: Cranial nerves II-XII grossly intact, Neuro grossly intact, Motor Exam 5/5 strength throughout Psych/Mental Status: Normal Affect, Appropriate, Alert and oriented to time, place, person, mood and affect Laboratory Results 05/26/20 05:55: WBC 6.6, RBC 4.00 L, Hgb 11.3 L, Hct 35.5 L, MCV 88.8, MCH 28.3, MCHC 31.8 L, RDW Std Deviation 44.5 H, RDW Coeff of Collin 13.7, Plt Count 170, MPV 11.0, Immature Gran % (Auto) 0.500, Neut % (Auto) 80.6 H, Lymph % (Auto) 9.5 L, [place] % (Auto) 7.4, Eos % (Auto) 1.7, Baso % (Auto) 0.3, Absolute Neuts (auto) 5.3, Absolute Lymphs (auto) 0.63 L, Nucleated RBC % 0 05/26/20 05:55: Sodium 139, Potassium 3.3 L, Chloride 107, Carbon Dioxide 28.0, Anion Gap 4 L, BUN 4 L, Creatinine 0.71, Estim Creat Clear Calc 98.33, Est GFR (MDRD) Af Amer 114, Est GFR (MDRD) Non-Af 94, BUN/Creatinine Ratio 5.6 L, Glucose 110 H, Calcium 8.2 L Current Medications Acetaminophen (Tylenol) 650 mg PO Q6H PRN PRN PRN Reason: Pain Score 1-10/Temp > 100.7 F Last Admin: 05/26/20 08:18 Dose: 650 mg Documented by: Al Hydroxide/Mg Hydroxide (Mylanta Ii) 30 ml PO Q6H PRN PRN PRN Reason: Gastric Burning Albuterol Sulfate (Ventolin Aerosols) 2.5 mg INHALATION Q2H PRN PRN PRN Reason: Dyspnea, wheezing Enoxaparin Sodium (Lovenox) 40 mg SC DAILY@0600 [facility] Last Admin: 05/26/20 05:37 Dose: 40 mg Documented by: Famotidine (Pepcid) 20 mg PO BID [facility] Last Admin: 05/26/20 08:18 Dose: 20 mg Documented by: Guaifenesin (Robitussin) 20 ml PO Q4H PRN PRN PRN Reason: COUGH Hydralazine HCl (Apresoline Iv) 10 mg IV Q4H PRN PRN PRN Reason: SBP > 160 Sodium Chloride () 1,000 mls @ 150 mls/hr IV .Q6H40M [facility] Last Admin: 05/26/20 04:42 Dose: 150 mls/hr Documented by: Ceftriaxone Sodium (Rocephin) 1 gm in 50 mls @ 100 mls/hr IV Q24@2200 [facility] Last Infusion: 05/25/20 22:02 Dose: Infused Documented by: Magnesium Hydroxide (Milk Of Magnesia) 30 ml PO DAILY PRN PRN PRN Reason: Constipation Morphine Sulfate () 2 mg IV Q3H PRN PRN PRN Reason: Pain Score 6-10/10 Last Admin: 05/25/20 14:46 Dose: 2 mg Documented by: Ondansetron HCl (Zofran) 4 mg IV Q8H PRN PRN PRN Reason: NAUSEA/VOMITING Last Admin: 05/25/20 22:28 Dose: 4 mg Documented by: Oxycodone HCl (Oxyir) 5 mg PO Q4H PRN PRN PRN Reason: Pain Score 4-5/10 Last Admin: 05/25/20 00:19 Dose: 5 mg Documented by: Prochlorperazine Edisylate (Compazine Iv) 5 mg IV Q4H PRN PRN PRN Reason: Breakthrough nausea/vomiting Psyllium Hydrophilic Mucilloid (Metamucil) 1 packet PO DAILY PRN PRN PRN Reason: Constipation Senna/Docusate Sodium (Senokot-S, Laura-Colace) 2 tablet PO BID PRN PRN PRN Reason: Constipation Sodium Chloride () 10 - 40 ml IV UD PRN PRN Reason: SALINE FLUSH Temazepam (Restoril) 15 mg PO QHS PRN PRN PRN Reason: INSOMNIA Throat Lozenges (Cepacol Sore Throat Lozenge) 1 lozenge MUCOUS MEM Q2H PRN PRN PRN Reason: SORE THROAT STROKE Vital Signs/Narrative: Vital Signs Pulse Ox 05/26/20 07:38 95 Medical Necessity - Tobacco Use Smoking Status: Never smoker Tobacco Use: Non-smoker Assessment/Plan All Active Problems Bacteremia (Acute) UTI (urinary tract infection) (Acute) Sepsis (Acute) # Sepsis due to UTI Urine cultured E. coli and preliminary blood cultures 1 out of 2 also grew E. coli. Repeat blood cultures pending. Continue IV Rocephin for now. #GERD: On famotidine #Super morbid obesity: BMI is 40. Counseled on diet and lifestyle changes. DVT prophylaxis: Lovenox Disposition: For likely discharge tomorrow. Inpatient E&M: 68116 Subs Hosp L2
[2020-05-26] MEDS: 0.9% Saline Lock 10 ML Syringe IV ×2 (11:13→17:45)
[2020-05-26] MEDS: guaiFENesin 10 ML UDC (200MG/10ML) 20 ML PO (15:57)
[2020-05-26] MEDS: BENZOCAINE/MENTHOL 1 LOZENGE MUCOUS MEM (18:41)
[2020-05-26] MEDS: Ceftriaxone 1 GM/50 ML BAG IV (21:08)
[2020-05-27] VITALS (7 sets, daily range): BP systolic 132–150; BP diastolic 52–84; PULSE 69–84; RESP 16; TEMP 36.6–36.9; O2SAT 97–100
[2020-05-27] MEDS: 0.9% Normal Saline 1,000 ML 150 ML IV (01:24)
[2020-05-27 05:41] LABS: Absolute Lymphocyte Count 0.82 X10^3/uL (0.83-4.51); Basophil# 0.02 X10^3/uL; Basophil% 0.4 % (0-1); Eosinophil# 0.12 X10^3/uL; Eosinophils% 2.7 % (0-5); Hematocrit 34.8 % (37-47); Lymphocyte # 0.82 X10^3/ul (4.0); Lymphocyte % 18.4 % (19-41); Mean Corp Hgb Conc 31.6 g/dL (32-36); Mean Corpuscular Hgb 28.1 pg (27.0-32.0); Mean Platelet Vol. 10.7 fl (6.2-12.0); Monocyte# 0.43 X10^3/uL; Monocyte% 9.7 % (0-10); NRBC Flagged by Analyzer 0 % (0-5); Neutrophil # 3.04 X10^3/uL (2.7-7.7); Neutrophil % 68.4 % (47-70); Platelet Count 225 K/mm3 (150-450); RBC Distribution Width CV 13.7 % (11.6-14.6); RBC Distribution Width SD 44.6 fl (35.1-43.9); Red Blood Count 3.91 M/mm3 (4.2-5.4); White Blood Count 4.5 K/mm3 (4.4-11.0)
[2020-05-27 05:59] LABS: Anion Gap 4 (5-15); BUN 4 mg/dL (7-18); Chloride 108 mmol/L (98-107); Creatinine, Serum 0.66 mg/dL (0.55-1.02); EST Glomerular Filtration Rate 103 mL/min (>60); Est Glom Filt Rate - Afr Amer 124 mL/min (>60); Estimated Creatinine Clearance 105.78 ml/min; Glucose 114 mg/dL (74-106); Potassium 3.4 mmol/L (3.5-5.1); Sodium Level 139 mmol/L (136-145)
[2020-05-27] MEDS: Enoxaparin 40 MG/0.4 ML Syringe SC (06:09)
[2020-05-27] MEDS: Famotidine 20 MG Tablet PO (09:34)
--- NOTE | 2020-05-27 10:23 | DCINST_ITS ---
- Discharge Diagnoses Current Active Problems: Current Active and Chronic Problems Bacteremia (Acute) UTI (urinary tract infection) (Acute) Sepsis (Acute) Obesity (BMI 30-39.9) (Chronic) You will use the following diet at home:: No restrictions Your food should be the consistency of: Regular Your liquids should be the consistency of: Regular/Thin Discharge Activity: Return to Normal Activity Weight Bearing Status: Weight bearing as tolerated Call your doctor if you observe: Fever of 101 or Higher, Shortness of breath, Dizziness, Fainting spells, Swelling in the ankles Instructions: ED CYSTITIS Female Adult Allergies/Adverse Reactions: Allergies acetaminophen [From [place]] Adverse Reaction (Verified 05/24/20 20:55) Other hydrocodone [From [place]] Adverse Reaction (Verified 05/24/20 20:55) Other Medications to take at Discharge Cefdinir [Omnicef [equiv]] 300 mg PO Q12H #10 cap 05/27/20 The following prescriptions were given: Cefdinir [Omnicef [equiv]] 300 mg PO Q12H #10 cap Transmission Status: Pending to [facility] Primary Care Physician: Hermilo Ray Chi, MD [Primary Care Provider] - Please follow up with your Primary Care Physician in: 1-2 weeks Test Results: Test results from this visit will be discussed in further detail at your follow- up appointment, if applicable. Proposed Discharge Date: 05/27/20
--- NOTE | 2020-05-27 10:25 | PCM.DC.SUM ---
Discharge Date and Diagnosis Date of Admission: 05/24/20 Date of Discharge: 05/27/20 - Primary Discharge Diagnosis Acute Problems: Active Problems Bacteremia (Acute) UTI (urinary tract infection) (Acute) Sepsis (Acute) - Secondary Discharge Diagnosis Chronic Problems: Chronic Problems Obesity (BMI 30-39.9) (Chronic) Hospital Course and Treatment Operations: None Procedures: None Summary of Care Provided: The patient is a 44 year old F with no significant past medical history. Patient was admitted via the ED on 05/24/2020 on account of positive blood cultures. Patient had been evaluated in the ED on 05/20/2020 with a complaint of dysuria and frequency and was diagnosed with UTI at that time. She was discharged home on oral ciprofloxacin. Subsequently represented in the ED on 05/24/2020 with similar symptoms as well as a headache and had blood cultures drawn. She was again sent home on oral antibiotics. However on the evening of 05/24/2020, she was called to come back to the ED on account of positive blood culture. At this time, urinary symptoms had largely resolved. Labs showed WBC of 15.6 hemoglobin of 12.8 with platelets of 214. Temperature was 99.3 Fahrenheit. Chest x-ray showed no acute cardiopulmonary process. She was admitted on Saturday for sepsis due to UTI and gram-negative rods bacteremia. She was started on IV ceftriaxone. Blood cultures were repeated. Covid test done was negative. Urine cultured E. coli and preliminary blood cultures also eventually grew rare E. coli. Repeat blood cultures were negative. Patient subsequently improved and symptoms resolved. She remained stable and was discharged on 05/27/2020 with a prescription for p.o. cefdinir 300 mg twice daily for 5 days. She is to follow-up with her primary care doctor within 1 week. Patient seen and examined prior to discharge. She had no complaints and felt well. Review of symptoms otherwise negative. Labs and vitals reviewed. Home medication reviewed and reconciled. O/E: Vital Signs Temp Pulse Resp BP Pulse Ox 97.8 F 82 16 132/84 H 98 05/27/20 11:12 05/27/20 11:12 05/27/20 11:12 05/27/20 11:12 05/27/20 11:12 [] General: Alert, Oriented x3, Cooperative HEENT: Atraumatic, PERRLA, EOMI, Normocephalic Oral: Moist Mucosa Neck: Supple, No JVD, Negative Carotid Bruits Lungs: Clear to auscultation, Normal air movement, No rhonchi, No wheeze, No rales Cardiovascular: Regular rate, Regular Rhythm, Normal S1, Normal S2, No murmurs Abdomen: Bowel Sounds Present, Soft, Non Tender, Non-Distended, No Hepato-splenomegaly Extremities: No clubbing, No cyanosis, No edema, Capillary Refill Less than 3 Seconds Skin: No rashes, No breakdown Musculoskeletal: No Tenderness to Palpation of Joints or Extremities Lymphatic: No Cervical, Supraclavicular, or Inguinal Adenopathy Neurological: Cranial nerves II-XII grossly intact, Neuro grossly intact, Motor Exam 5/5 strength throughout Psych/Mental Status: Normal Affect, Appropriate, Alert and oriented to time, place, person, mood and affect Plan is for discharge home today. - Physical Exam Vitals/I&O's: Vital Signs Temp Pulse Resp BP Pulse Ox 98.4 F 84 16 150/66 H 100 05/27/20 09:20 05/27/20 09:20 05/27/20 09:20 05/27/20 09:20 05/27/20 09:20 Oxygen Delivery Method Room Air Weight: 255 lb 4.725 oz Body Mass Index (BMI) 39.9 Intake and Output for Last 24 Hours 05/25/20 05/26/20 05/27/20 23:59 23:59 23:59 Intake Total 4672.5 / 4672.5 4422.5 / 4422.5 3200 / 3200 Output Total 1800 / 1800 1800 / 1800 1575 / 1575 Balance 2872.5 / 2872.5 2622.5 / 2622.5 1625 / 1625 Microbiology Past 72 Hours 05/24/20 21:30 Blood Culture (Wb) - Right Forearm Blood Culture - Preliminary No growth in 48 hours. 05/24/20 21:10 Blood Culture (Wb) - Anticubital Left Blood Culture - Preliminary No growth in 48 hours. Laboratory Results 05/27/20 05:25: WBC 4.5, RBC 3.91 L, Hgb 11.0 L, Hct 34.8 L, MCV 89.0, MCH 28.1, MCHC 31.6 L, RDW Std Deviation 44.6 H, RDW Coeff of Collin 13.7, Plt Count 225, MPV 10.7, Immature Gran % (Auto) 0.400, Neut % (Auto) 68.4, Lymph % (Auto) 18.4 L, [place] % (Auto) 9.7, Eos % (Auto) 2.7, Baso % (Auto) 0.4, Absolute Neuts (auto) 3.0, Absolute Lymphs (auto) 0.82 L, Nucleated RBC % 0 05/27/20 05:25: Sodium 139, Potassium 3.4 L, Chloride 108 H, Carbon Dioxide 27.0, Anion Gap 4 L, BUN 4 L, Creatinine 0.66, Estim Creat Clear Calc 105.78, Est GFR (MDRD) Af Amer 124, Est GFR (MDRD) Non-Af 103, BUN/Creatinine Ratio 6.0 L, Glucose 114 H, Calcium 8.0 L Current Medications Acetaminophen (Tylenol) 650 mg PO Q6H PRN PRN PRN Reason: Pain Score 1-10/Temp > 100.7 F Last Admin: 05/26/20 17:45 Dose: 650 mg Documented by: Al Hydroxide/Mg Hydroxide (Mylanta Ii) 30 ml PO Q6H PRN PRN PRN Reason: Gastric Burning Albuterol Sulfate (Ventolin Aerosols) 2.5 mg INHALATION Q2H PRN PRN PRN Reason: Dyspnea, wheezing Enoxaparin Sodium (Lovenox) 40 mg SC DAILY@0600 REPLACED BY [facility] Last Admin: 05/27/20 06:09 Dose: 40 mg Documented by: Famotidine (Pepcid) 20 mg PO BID REPLACED BY [facility] Last Admin: 05/27/20 09:34 Dose: 20 mg Documented by: Guaifenesin (Robitussin) 20 ml PO Q4H PRN PRN PRN Reason: COUGH Last Admin: 05/26/20 15:57 Dose: 20 ml Documented by: Hydralazine HCl (Apresoline Iv) 10 mg IV Q4H PRN PRN PRN Reason: SBP > 160 Sodium Chloride () 1,000 mls @ 150 mls/hr IV .Q6H40M REPLACED BY [facility] Last Admin: 05/27/20 09:30 Dose: Not Given Documented by: Ceftriaxone Sodium (Rocephin) 1 gm in 50 mls @ 100 mls/hr IV Q24@2200 REPLACED BY [facility] Last Infusion: 05/26/20 22:22 Dose: Infused Documented by: Magnesium Hydroxide (Milk Of Magnesia) 30 ml PO DAILY PRN PRN PRN Reason: Constipation Morphine Sulfate () 2 mg IV Q3H PRN PRN PRN Reason: Pain Score 6-10/10 Last Admin: 05/25/20 14:46 Dose: 2 mg Documented by: Ondansetron HCl (Zofran) 4 mg IV Q8H PRN PRN PRN Reason: NAUSEA/VOMITING Last Admin: 05/25/20 22:28 Dose: 4 mg Documented by: Oxycodone HCl (Oxyir) 5 mg PO Q4H PRN PRN PRN Reason: Pain Score 4-5/10 Last Admin: 05/25/20 00:19 Dose: 5 mg Documented by: Prochlorperazine Edisylate (Compazine Iv) 5 mg IV Q4H PRN PRN PRN Reason: Breakthrough nausea/vomiting Psyllium Hydrophilic Mucilloid (Metamucil) 1 packet PO DAILY PRN PRN PRN Reason: Constipation Senna/Docusate Sodium (Senokot-S, Laura-Colace) 2 tablet PO BID PRN PRN PRN Reason: Constipation Sodium Chloride () 10 - 40 ml IV UD PRN PRN Reason: SALINE FLUSH Last Admin: 05/26/20 17:45 Dose: 10 ml Documented by: Temazepam (Restoril) 15 mg PO QHS PRN PRN PRN Reason: INSOMNIA Throat Lozenges (Cepacol Sore Throat Lozenge) 1 lozenge MUCOUS MEM Q2H PRN PRN PRN Reason: SORE THROAT Last Admin: 05/26/20 18:41 Dose: 1 lozenge Documented by: Discharge Diet: Low fat/ Low Cholesterol Discharge Activity: Return to Normal Activity Weight Bearing Status: Weight bearing as tolerated Call your doctor if you observe: Fever of 101 or Higher, Shortness of breath, Dizziness, Fainting spells, Swelling in the ankles Home Medications: Medications to take at Discharge Cefdinir [Omnicef [equiv]] 300 mg PO Q12H #10 cap 05/27/20 Following Prescriptions Were Given to Patient: Cefdinir [Omnicef [equiv]] 300 mg PO Q12H #10 cap Transmission Status: Received by [id number] Primary Care Physician: Hermilo Ray Chi, MD [Primary Care Provider] - Please follow up with your Primary Care Physician in: 1-2 weeks Patient Instructions: ED CYSTITIS Female Adult Disposition: Home Minutes spent on discharge:: 40 Patient Condition:: Stable Medical Necessity - Tobacco Use Smoking Status: Never smoker Tobacco Use: Non-smoker Meaningful Use Info Meaningful Use Diagnoses (Choose all that apply): None applicable Inpatient E&M: 47093 Disch Hosp
== END 2020-05-27 11:24 | disposition home or self-care (01) | DRG 872 ==
LOC: ED 22:26 → MS3 22:29
PROVIDERS: Admitting Provider Family Medicine; Emergency Provider Emergency Medicine; PCP Family Medicine Geriatric Medicine; Referring Provider Family Medicine; Visit Provider Student in an Organized Health Care Education/Training Program
DX: A41.9 Sepsis, unspecified organism (principal); N39.0 Urinary tract infection, site not specified; Z68.41 Body mass index [BMI] 40.0-44.9, adult; B96.20 Unspecified Escherichia coli [E. coli] as the cause of diseases classified elsewhere; R73.9 Hyperglycemia, unspecified; K21.9 Gastro-esophageal reflux disease without esophagitis; E66.01 Morbid (severe) obesity due to excess calories
CPT/HCPCS: 36415; 71045; 80048; 80053; 81001; 83605; 84703; 85025; 85610; 85730; 87040; 87077; 87086; 87088; 87186; 87635; 96361; 96365; 96375; 99285; C9803; J7030; A4216; J0696; J2405; U0003

== ENCOUNTER → 2020-06-10 11:00 | Outpatient (CLI) | payer BC, SELFPAY ==
[2020-05-24 23:24] VITALS: BMI 39.9
[2020-06-10 12:34] LABS: Absolute Lymphocyte Count 1.98 X10^3/uL (0.83-4.51); Absolute Neutrophil Count 6.4 X10^3/uL (2.0-7.7); Basophil# 0.07 X10^3/uL; Basophil% 0.7 % (0-1); Eosinophil# 0.22 X10^3/uL; Eosinophils% 2.3 % (0-5); Hematocrit 39.7 % (37-47); Hemoglobin 12.8 g/dL (12.0-15.0); Lymphocyte # 1.98 X10^3/ul (4.0); Lymphocyte % 21.1 % (19-41); Mean Corp Hgb Conc 32.2 g/dL (32-36); Mean Corpuscular Hgb 28.4 pg (27.0-32.0); Mean Platelet Vol. 11.9 fl (6.2-12.0); Monocyte# 0.71 X10^3/uL; Monocyte% 7.6 % (0-10); NRBC Flagged by Analyzer 0 % (0-5); Neutrophil # 6.38 X10^3/uL (2.7-7.7); Platelet Count 345 K/mm3 (150-450); Red Blood Count 4.51 M/mm3 (4.2-5.4); White Blood Count 9.4 K/mm3 (4.4-11.0)
[2020-06-10 13:06] LABS: ALB/GLOB Ratio 0.9 RATIO (0.9-2.4); AST(SGOT) 15 U/L (15-37); Alanine Aminotransfer ALT/SGPT 14 U/L (13-56); Albumin, Serum 3.7 g/dL (3.2-5.0); Alkaline Phosphatase 81 U/L (45-117); Anion Gap 5 (5-15); BUN 15 mg/dL (7-18); BUN/Creat Ratio 17.6 RATIO (10-20); Calcium,Total 9.1 mg/dL (8.5-10.1); Chloride 104 mmol/L (98-107); Creatinine, Serum 0.85 mg/dL (0.55-1.02); EST Glomerular Filtration Rate 77 mL/min (>60); Est Glom Filt Rate - Afr Amer 93 mL/min (>60); Globulin 3.9 g/dL (2.2-4.2); Glucose 100 mg/dL (74-106); Potassium 3.5 mmol/L (3.5-5.1); Protein, Total 7.6 g/dL (6.4-8.2); Sodium Level 138 mmol/L (136-145); Thyroid Stim Hormone (TSH) 2.07 uIU/mL (0.358-3.74)
== END ==
PROVIDERS: PCP Family Medicine Geriatric Medicine; Visit Provider Family Medicine Geriatric Medicine
DX: I10 Essential (primary) hypertension (principal)
CPT/HCPCS: 36415; 80053; 84443; 85025

== ENCOUNTER 2021-04-25 16:16 | Emergency (ER) | payer OTHER, SELFPAY ==
[2020-05-24 23:24] VITALS: BMI 39.9
[2021-04-25 16:18] VITALS: BP 161/93; PULSE 82; RESP 16; TEMP 36.6; O2SAT 98; BMI 40.3
[2021-04-25 16:24] VITALS: BP 161/93; PULSE 82; RESP 16; TEMP 36.6; O2SAT 98
[2021-04-25 16:46] LABS: Absolute Lymphocyte Count 2.64 X10^3/uL (0.83-4.51); Basophil# 0.05 X10^3/uL; Basophil% 0.5 % (0-1); Eosinophil# 0.39 X10^3/uL; Eosinophils% 3.6 % (0-5); Hematocrit 41.2 % (37-47); Hemoglobin 13.3 g/dL (12.0-15.0); Lymphocyte # 2.64 X10^3/ul (0.83-4.51); Lymphocyte % 24.6 % (19-41); Mean Corp Hgb Conc 32.3 g/dL (32-36); Mean Corpuscular Hgb 27.8 pg (27.0-32.0); Mean Platelet Vol. 11.3 fl (6.2-12.0); Monocyte# 0.66 X10^3/uL; Monocyte% 6.2 % (0-10); NRBC Flagged by Analyzer 0 % (0-5); Neutrophil # 6.95 X10^3/uL (2.7-7.7); Neutrophil % 64.7 % (47-70); Platelet Count 297 K/mm3 (150-450); RBC Distribution Width CV 13.8 % (11.6-14.6); RBC Distribution Width SD 43.2 fl (35.1-43.9); Red Blood Count 4.79 M/mm3 (4.2-5.4); White Blood Count 10.7 K/mm3 (4.4-11.0)
[2021-04-25 16:46] LABS: Bacteria 0 SEEN /hpf (None Seen); Mucous, Urine 0 SEEN /hpf (<or=2+); Red Blood Cells-Urine 0 SEEN /hpf (0-5); Squamous Epithelial Cells - UA 0 SEEN /hpf (5-10); White Blood Cells 0 SEEN /hpf (0-5)
[2021-04-25 16:54] LABS: Color, Urine Straw (Yellow); Glucose, Dipstick Normal (Normal); Ketone-Dipstick Negative (Negative); Leukocyte Esterase-Dipstick Negative /ul (Negative); Nitrite-Dipstick Negative (Negative); Occult Blood-Urine Negative /ul (Negative); Protein-Dipstick Negative (Negative); Urine Bilirubin Dipstick Negative (Negative); Urine Clarity Clear (Clear); Urine Urobilinogen Normal (Normal); Urine pH 6.5 (5.0 - 8.0)
[2021-04-25 17:05] LABS: Anion Gap 7 (5-15); BUN 12 mg/dL (7-18); BUN/Creat Ratio 18.8 RATIO (10-20); Calcium,Total 9.2 mg/dL (8.5-10.1); Chloride 103 mmol/L (98-107); Creatinine, Serum 0.64 mg/dL (0.55-1.02); EST Glomerular Filtration Rate 106 mL/min (>60); Est Glom Filt Rate - Afr Amer 129 mL/min (>60); Estimated Creatinine Clearance 103.92 ml/min; Glucose 93 mg/dL (74-106); Sodium Level 139 mmol/L (136-145)
[2021-04-25 17:18] LABS: Internal QC Validated? YES +Cl - CLEAR BKGD; Pregnancy, Serum, hCG Quali. NEGATIVE Negative
--- NOTE | 2021-04-25 17:36 | ED.VIS.GI ---
HPI HPI - GI History of Present Illness Chief Complaint: Abd Pain Informant: patient Abdominal Pain/Flank Pain Onset: Days Context: Gradual Onset Timing: Intermittent Quality: Cramping Location: Diffuse Current Severity: Gone Maximum Severity: Mild Worsened by: Not Worsened By Car ride, Food, Movement and Nothing Relieved by: Not Relieved By Antacids, Food, Nothing and Remaining Still Nausea/Vomiting/Emesis GI Symptom: Negative for Nausea and Vomiting Diarrhea/Melena/Hematochezia GI Symptom: Negative for Diarrhea, Melena and Hematochezia Associated Symptoms Associated Symptoms: Negative for Dysuria, Frequency, Hematuria and Urgency Narrative Narrative: 45-year-old female no sniffing past medical history prior umbilical hernia surgery. Patient states she has had intermittent bilateral right and left side abdominal pain for 2 days. Gradual onset. Associated mild nausea but no vomiting or diarrhea no fever chills no dysuria. Last menstrual period was around April 30. She denies any vaginal bleeding or discharge. Nothing particular makes the pain better or worse. States that she is urinating and moving her bowels normally. Prior similar symptoms: No Recent Illness/Hospitalization: No PFSH PFSH Medical History Umbilical hernia Home Medications NK 04/25/21 [History Last Taken Unknown] Allergy/AdvReac Type Severity Reaction Status Date / Time acetaminophen [From Allison] AdvReac Other Verified 04/25/21 16:17 hydrocodone [From Allison] AdvReac Other Verified 04/25/21 16:17 Social History Smoking Status: Never smoker ROS ROS ED ROS Narrative Patient denies recent illness. Review of Systems ROS Unobtainable: Denies due to encephalopathy Constitutional Constitutional ED: Denies fever(s) ENT ENT ED: Denies ear pain Cardiovascular Cardiovascular: Denies chest pain Respiratory/Chest Respiratory/Chest: Denies cough or dyspnea Gastrointestinal Gastrointestinal: Reports abdominal pain and nausea; Denies constipation, diarrhea, melena or vomiting Genitourinary Genitourinary ED: Denies dysuria or hematuria Musculoskeletal Musculoskeletal: Denies myalgias Integumentary Denies rash Neurologic Neurologic: Denies headache(s) Psychiatric Psychiatric: Denies depression Endocrine Endocrinology: Denies polyuria Hematologic/Lymphatic Hematologic/Lymphatic: Denies easy bruising Allergic/Immunologic Allergic/Immunologic ED: Denies urticaria EXAM Physical Exam Narrative Exam Narrative: Well-appearing middle-aged female. Vital signs stable afebrile. Patient does not look septic toxic in any distress. H EENT exam unremarkable. Neck nontender. Lungs clear to auscultation bilaterally. Heart regular rhythm no murmur. Abdomen soft. Nondistended normal bowel sounds no peritoneal signs. Absolutely nontender on exam. The right upper lower quadrant unremarkable. There is no signs of obstruction. Moving all 4Amities. No edema. Nontender. Back nontender. Neurologically awake and alert with no focal motor deficits. Const Vital Signs: 04/25/21 16:18 04/25/21 16:24 Temperature 98 F 98 F Temperature Source Temporal Temporal Pulse Rate 82 82 Respiratory Rate 16 16 Blood Pressure 161/93 H 161/93 H Blood Pressure Mean 115 115 Pulse Ox 98 98 Oxygen Delivery Method Room Air Room Air Positive well nourished, well developed and obese; Negative for cachectic, contractures or unkempt General Appearance ED: well developed and NAD; Negative for unkempt, cachectic or contractures Nutritional Appearance: obese; Negative for cachectic HEENT Reports moist mucous membranes normocephalic and atraumatic; Negative for trauma or tenderness Eyes PERRL and EOMs intact bilaterally Neck no lymphadenopathy, supple and no JVD General: Negative for tenderness Resp normal respiratory effort and clear to auscultation bilaterally Auscultation: Negative for rales, rhonchi or wheezes Cardio regular rate, regular rhythm, S1 normal heart sound, S2 normal heart sound and no murmurs GI non-tender, non-distended and no masses Inspection: Negative for abdominal distention Auscultation: normoactive bowel sounds; Negative for hyperactive bowel sounds or hypoactive bowel sounds Palpation: soft; Negative for tender, guarding, rigid or rebound tenderness present Back/Spine no CVA tenderness General Back: Negative for CVA tenderness Extremity full ROM General Extremety ED: Negative for edema or tenderness General Extremity: Negative for edema Neuro CN's II-XII intact bilaterally and moves all extremities Sensorium / Orientation: alert, oriented to person, oriented to place and oriented to time; Negative for orientation impaired, confused, lethargic or stuporous Psych mental status grossly normal Appearance: Negative for unkempt Skin Lesions: no lesions Rashes: no rashes MDM MDM MDM Narrative Medical decision making narrative: Well-appearing middle-aged female with bilateral intermittent abdominal pain. Exam is benign and completely nontender. Labs are being obtained. At this time she is pain-free and has a normal exam I am holding off on imaging unless the labs dictate otherwise. Repeat exam patient is doing well at 7:25 PM to be discharged to home. Abdomen remains benign. We discussed all of her test results. Lab Data Attestation: I reviewed the patient's lab results. Lab results narrative: CBC shows a white count of 10. Hemoglobin 13. No bands. Chemistries unremarkable gap 7. Normal creatinine. Serum test negative. Urinalysis is completely negative with no signs of infection. Liver and lipase are both normal. Labs: Laboratory Results - last 24 hr 04/25/21 04/25/21 04/25/21 16:25 16:25 16:25 WBC 10.7 RBC 4.79 Hgb 13.3 Hct 41.2 MCV 86.0 MCH 27.8 MCHC 32.3 RDW Std Deviation 43.2 RDW Coeff of Collin 13.8 Plt Count 297 MPV 11.3 Immature Gran % (Auto) 0.400 Neut % (Auto) 64.7 Lymph % (Auto) 24.6 [place] % (Auto) 6.2 Eos % (Auto) 3.6 Baso % (Auto) 0.5 Absolute Neuts (auto) 7.0 Absolute Lymphs (auto) 2.64 Nucleated RBC % 0 Sodium 139 Potassium 4.0 Chloride 103 Carbon Dioxide 29.0 Anion Gap 7 BUN 12 Creatinine 0.64 Estim Creat Clear Calc 103.92 Est GFR (MDRD) Af Amer 129 Est GFR (MDRD) Non-Af 106 BUN/Creatinine Ratio 18.8 Glucose 93 Calcium 9.2 Total Bilirubin Direct Bilirubin AST ALT Alkaline Phosphatase Total Protein Albumin Globulin Lipase Serum , Qual NEGATIVE Urine Color Urine Clarity Urine pH Ur Specific [place] Urine Protein Urine Glucose (UA) Urine Ketones Urine Occult Blood Urine Nitrite Urine Bilirubin Urine Urobilinogen Ur Leukocyte Esterase Urine RBC Urine WBC Ur Squamous Epith Cells Urine Bacteria Urine Mucus 04/25/21 04/25/21 04/25/21 16:25 16:25 16:30 WBC RBC Hgb Hct MCV MCH MCHC RDW Std Deviation RDW Coeff of Collin Plt Count MPV Immature Gran % (Auto) Neut % (Auto) Lymph % (Auto) [place] % (Auto) Eos % (Auto) Baso % (Auto) Absolute Neuts (auto) Absolute Lymphs (auto) Nucleated RBC % Sodium Potassium Chloride Carbon Dioxide Anion Gap BUN Creatinine Estim Creat Clear Calc Est GFR (MDRD) Af Amer Est GFR (MDRD) Non-Af BUN/Creatinine Ratio Glucose Calcium Total Bilirubin 0.40 Direct Bilirubin 0.11 AST 16 ALT 15 Alkaline Phosphatase 83 Total Protein 7.3 Albumin 4.0 Globulin 3.3 Lipase 84 Serum , Qual Urine Color Straw Urine Clarity Clear Urine pH 6.5 Ur Specific [place] 1.010 Urine Protein Negative Urine Glucose (UA) Normal Urine Ketones Negative Urine Occult Blood Negative Urine Nitrite Negative Urine Bilirubin Negative Urine Urobilinogen Normal Ur Leukocyte Esterase Negative Urine RBC 0 SEEN Urine WBC 0 SEEN Ur Squamous Epith Cells 0 SEEN Urine Bacteria 0 SEEN Urine Mucus 0 SEEN Discharge Plan Triage Chief Complaint: Abd Pain ED Provider: Andrea Ramirez Dx/Rx/DC Orders Clinical Impression: Abdominal pain in female Instructions: ED Abdominal Pain Unkn Cause Fem Prescriptions: No Action NK RF: 0 Primary Care Provider: Hermilo Ray Chi Referrals: Hermilo Ray Chi, MD [Primary Care Provider] - 3-5 Days if not improving Activity Restrictions/Additional Instructions: Your exam is normal. All your labs are normal. Tylenol and/or Motrin for pain. Follow-up with your doctor if not improving. Return emergency department if you are feeling a lot worse. Severe pain, intractable vomiting or fever. Disposition Disposition: Home, Self Care
[2021-04-25 18:49] LABS: Lipase 84 U/L (73-393)
[2021-04-25 18:57] LABS: AST(SGOT) 16 U/L (15-37); Alanine Aminotransfer ALT/SGPT 15 U/L (13-56); Alkaline Phosphatase 83 U/L (45-117); Bilirubin, Direct 0.11 mg/dL (0.00-0.30); Globulin 3.3 g/dL (2.2-4.2); Protein, Total 7.3 g/dL (6.4-8.2)
== END 2021-04-25 19:42 | disposition home or self-care (01) ==
LOC: ED 17:57
PROVIDERS: Emergency Provider Emergency Medicine; PCP Family Medicine Geriatric Medicine
DX: R10.9 Unspecified abdominal pain (principal); R11.0 Nausea
CPT/HCPCS: 80048; 80076; 81001; 83690; 84703; 85025; 99282; A4216

== ENCOUNTER → 2021-04-26 15:52 | Outpatient (CLI) | payer OTHER, SELFPAY ==
[2021-04-25 16:18] VITALS: BMI 40.3
--- NOTE | 2021-04-26 15:56 | CT_ITS ---
INDICATION: ABD PAIN EXAMINATION: CT Abdomen And Pelvis W/ Contrast Injection TECHNIQUE: Helically acquired images were obtained of the abdomen and pelvis after IV contrast. A radiation dose optimization technique was used for this scan. IV Contrast dosage and agent: Oral and amp; IV Gastrografin and amp; 100mL [id number]-370 Oral contrast: Yes. COMPARISON: None. FINDINGS: Visualized lung bases: Unremarkable Liver: Unremarkable Gallbladder: Unremarkable Spleen: Unremarkable Pancreas: Unremarkable Adrenal Glands: Unremarkable Kidneys: Unremarkable Vasculature: Unremarkable GI Tract: Unremarkable Lymphadenopathy: Prominent peripancreatic lymph nodes. Peritoneum: No ascites. Bladder: Unremarkable Reproductive organs: Unremarkable Bones/Soft tissues: No suspicious osseous or soft tissue lesions CT/Abdomen/Pelvis WITH Contrast IMPRESSION: No acute abnormalities in the abdomen or pelvis. Prominent peripancreatic lymph nodes. Electronically Signed: Jeramie Rg MD at 18:31 EDT Tel , Service support ,
== END ==
LOC: CT 15:54
PROVIDERS: PCP Family Medicine Geriatric Medicine; Referring Provider Family Medicine Geriatric Medicine; Visit Provider Family Medicine Geriatric Medicine
DX: R10.9 Unspecified abdominal pain (principal)
CPT/HCPCS: 74177; Q9967; A4216

== ENCOUNTER → 2021-08-02 | Outpatient (CLI) | payer OTHER, SELFPAY ==
[2021-08-09 20:48] LABS: HPV APTIMA, High Risk Negative (Negative)
== END | disposition home or self-care (01) ==
LOC: LABSPEC 16:23
PROVIDERS: PCP Family Medicine Geriatric Medicine; Visit Provider Nurse Practitioner Women's Health
DX: Z12.4 Encounter for screening for malignant neoplasm of cervix (principal)
CPT/HCPCS: 87624; 88175; G0145

== ENCOUNTER → 2021-08-04 15:48 | Outpatient (CLI) | payer OTHER, SELFPAY ==
--- NOTE | 2021-08-04 15:53 | US_ITS ---
STUDY: ULTRASOUND OF THE FEMALE PELVIS - COMPLETE REASON FOR EXAM: Female, 45 years old. menorrhagia TECHNIQUE: Endovaginal. Transvaginal US was obtained to better visualized the ovaries. COMPARISON: None. FINDINGS: The uterus is retroverted and is in a midline position. The uterus measures 6.6 x 4.5 cm. Microcalcifications around the cervix. The endometrium measures 4.2 mm in thickness, and is fluid distended. There is no demonstrated endometrial mass. Pedunculated Fibroid visualized. This measures 22 x 22 mm. 11 x 13 mm, 21 x 18 mm, and 25 x 25 mm fibroids. I.U.D. - The patient does not have an I.U.D. The right ovary is visualized. The right ovary measures 2.3 x 1.6 cm. There is no right ovarian cyst or ovarian mass. There is no visualized right adnexal mass or complex lesion. There is normal arterial and normal venous vascularity. The left ovary is visualized. The left ovary measures 2.2 x 1.8 cm. There is no left ovarian cyst or ovarian mass. There is no visualized left adnexal mass or complex lesion. There is normal arterial and normal venous vascularity. There is no fluid in the cul-de-sac. Urinary bladder volume is 413 cc US/Pelvic (Non ) IMPRESSION: The urinary bladder is distended. This can suggest urinary retention. Fibroid uterus. Abnormal masslike area in the cervix may suggest a lower uterine segment endocervical fibroid. However, underlying mass is difficult to exclude recommend direct visualization. Electronically Signed: Rich Parekh MD at 20:49 EST , Service support ,
--- NOTE | 2021-08-04 15:53 | US_ITS ---
STUDY: ULTRASOUND OF THE FEMALE PELVIS - COMPLETE REASON FOR EXAM: Female, 45 years old. menorrhagia TECHNIQUE: Endovaginal. Transvaginal US was obtained to better visualized the ovaries. COMPARISON: None. FINDINGS: The uterus is retroverted and is in a midline position. The uterus measures 6.6 x 4.5 cm. Microcalcifications around the cervix. The endometrium measures 4.2 mm in thickness, and is fluid distended. There is no demonstrated endometrial mass. Pedunculated Fibroid visualized. This measures 22 x 22 mm. 11 x 13 mm, 21 x 18 mm, and 25 x 25 mm fibroids. I.U.D. - The patient does not have an I.U.D. The right ovary is visualized. The right ovary measures 2.3 x 1.6 cm. There is no right ovarian cyst or ovarian mass. There is no visualized right adnexal mass or complex lesion. There is normal arterial and normal venous vascularity. The left ovary is visualized. The left ovary measures 2.2 x 1.8 cm. There is no left ovarian cyst or ovarian mass. There is no visualized left adnexal mass or complex lesion. There is normal arterial and normal venous vascularity. There is no fluid in the cul-de-sac. Urinary bladder volume is 413 cc US/Transvaginal Non- IMPRESSION: The urinary bladder is distended. This can suggest urinary retention. Fibroid uterus. Abnormal masslike area in the cervix may suggest a lower uterine segment endocervical fibroid. However, underlying mass is difficult to exclude recommend direct visualization. Electronically Signed: Rich Parekh MD at 20:49 EST , Service support ,
== END ==
PROVIDERS: PCP Family Medicine Geriatric Medicine; Referring Provider Nurse Practitioner Women's Health; Visit Provider Nurse Practitioner Women's Health
DX: N92.1 Excessive and frequent menstruation with irregular cycle (principal)
CPT/HCPCS: 76830; 76856

== ENCOUNTER → 2021-08-23 15:44 | Outpatient (CLI) | payer OTHER, SELFPAY ==
--- NOTE | 2021-08-23 15:46 | BI_ITS ---
MAMMOGRAPHY - BILATERAL SCREENING REASON FOR EXAM: Female, 45 years old. Routine annual screening examination. PERTINENT HISTORY: Aunt with breast cancer. TECHNIQUE: Digital bilateral breast omari (3D mammographic acquisition) in the CC and MLO projections. 2-D mediolateral oblique (MLO) and craniocaudad (CC) views of both breasts were obtained. CAD: Full Field Digital Mammography with Computer Added Detection was performed. COMPARISON: Comparison is made with prior examination of 11/25/2015. FINDINGS: Breast Composition: There are scattered areas of fibroglandular density. There are no dominant masses or suspicious calcifications. No other significant abnormalities are identified. There has been no significant change since the prior study. BI/SCRN MAMM (CAD)W/OMARI BILAT IMPRESSION: Stable bilateral screening mammogram. Yearly follow-up mammogram recommended. (A) ASSESSMENT CATEGORY: BIRADS Category 1: Negative. A letter regarding these results will be sent to the patient by the facility within 30 days. Approximately 10% of breast cancers are not detected by mammography. A normal mammogram should not delay biopsy of a clinically suspicious abnormality. [id number] Electronically Signed: Jose Sandoval MD at 15:36 EST , Service support ,
== END ==
PROVIDERS: PCP Family Medicine Geriatric Medicine; Referring Provider Nurse Practitioner Women's Health; Visit Provider Nurse Practitioner Women's Health
DX: Z12.31 Encounter for screening mammogram for malignant neoplasm of breast (principal); Z80.3 Family history of malignant neoplasm of breast
CPT/HCPCS: 77063; 77067

== ENCOUNTER 2021-08-29 05:09 | Day surgery (SDC) | payer OTHER, SELFPAY ==
[2021-08-29] VITALS (17 sets, daily range): BP systolic 116–157; BP diastolic 48–99; PULSE 73–94; RESP 14–18; TEMP 36.2–36.6; O2SAT 92–100; BMI 42.5
[2021-08-29] MEDS: Lactated Ringers 1,000 ML 15 ML IV (06:21)
[2021-08-29 06:36] LABS: Magnesium 1.9 mg/dL (1.6-2.6)
[2021-08-29 06:40] LABS: Bedside Glucose 100 mg/dL (70-110)
[2021-08-29 06:45] LABS: Internal QC Validated? YES +Cl - CLEAR BKGD; Pregnancy, Urine Negative Negative
[2021-08-29] MEDS: Celecoxib 200 MG Capsule 400 MG PO (07:00)
[2021-08-29] MEDS: Gabapentin 600 MG Tablet PO (07:00)
[2021-08-29] MEDS: Acetaminophen 500 MG Tablet 1000 MG PO (07:00)
[2021-08-29 07:04] LABS: Hemoglobin 12.5 g/dL (12.0-15.0); Mean Corp Hgb Conc 32.1 g/dL (32-36); Mean Corpuscular Hgb 27.4 pg (27.0-32.0); Mean Corpuscular Volume 85.5 fL (81-99); Mean Platelet Vol. 11.5 fl (6.2-12.0); Platelet Count 265 K/mm3 (150-450); RBC Distribution Width SD 43.2 fl (35.1-43.9); Red Blood Count 4.56 M/mm3 (4.2-5.4); White Blood Count 8.5 K/mm3 (4.4-11.0)
--- NOTE | 2021-08-29 07:21 | PCM.HP.BLA ---
History and Physical Date of Admission: 08/29/21 [facility] [id number] [place] [address] [phone] OFFICE VISITDate of Service: 08/16/21 MR#:[id number]:[id number]: VIRGINIA JOHNSTONRep #:[id number]:[id number] Provider:Dr. 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 Is patient in pain?: No Allergies acetaminophen [From [employer]] Adverse Reaction (Verified 08/16/21 15:31) Other hydrocodone [From [employer]] Adverse Reaction (Verified 08/16/21 15:31) Other Medications food supplemt, lactose-reduced 0.04 gram-1.05 kcal/mL oral liquid ml PO 08/02/21 [History Confirmed 08/16/21] multivitamin 1 tab PO DAILY 08/02/21 [History Confirmed 08/16/21] multivitamin,min-ferrous fumarate 3.3 mg-folic 25 mcg-herb tablet tab PO 08/02/21 [History Confirmed 08/16/21] Post menopausal: No Patient : No : No PFSH Medical History ASCUS of cervix with negative high risk HPV Umbilical hernia Surgical History H/O wrist surgery History of hernia repair Family History Father Diabetes Esophageal cancer Mother Diabetes Social History household members: spouse current occupational status: employed current occupation: [employer] Smoking Status: Never smoker alcohol intake: current alcohol intake frequency: holidays/special occasions only substance use type: does not use what type of physical activity do you participate in: none seatbelt use: always do you feel safe at home: Yes additional social history: - Rusty [facility] Surgical Consult Details: VIRGINIA JOHNSTON is a 45 year old G0 who presents for a surgical consultation. She has the complaint of a protrusion in her vagina that is causing discomfort. Her menses are irregular and are every 3 month but not heavy. Ultrasound shows a normal size uterus but with multiple fibroids and a mass like defect in the cervix. The patient is requesting hysterectomy. Pap last month showed ASCUS without HPV. The patient states that she bled for 2 days after her pap. Pregancy History 0 Elective abortions Hx Para Spontaneous abortions Hx # Term Pregnancies Ectopic pregnancies Hx # Pregnancies Multiple births # of living children ROS Const ROS Unobtainable: All systems reviewed & are unremarkable except as noted in H Resp Resp: Reports system reviewed and no additional complaints, except as documented; Denies cough GI GI: Reports as per HPI Psych Psych: Reports system reviewed and no additional complaints, except as documented Exam Const General: cooperative, healthy appearing, comfortable and no acute distress Resp Effort & Inspection: normal respiratory effort General: bimanual renal exam normal bilaterally External Female Exam: normal appearance of the urethra Urethra: normal appearance of the urethra Speculum Exam - Vagina: normal appearance of the vagina Speculum Exam - Cervix: abnormal appearance of the cervix, cervical os open and lesion (There is a 3cm peduculated cervical polyp present that easily bleeds ) polyp Bimanual Exam- Adnexa, other: normal adnexae and normal Pelvic Support: normal OB/External & Speculum: cervical os open Speculum Exam: cervical os open Skin General: no rashes or lesions noted Psych Appearance: grossly normal Speech and Movement: speech and movement normal Coding Level of Care Code Off vis,est,level 4 Diagnoses ASCUS of cervix with negative high risk HPV R87.610 Menorrhagia with irregular cycle N92.1 Cervical mass N88.8 Obesity (BMI 30-39.9) E66.9 Assessment and Plan Assessment and Plan (1) ASCUS of cervix with negative high risk HPV: Status: Acute Comment: repeat pap 3 years (2) Menorrhagia with irregular cycle: Status: Acute (3) Cervical mass: Status: Acute (4) Obesity (BMI 30-39.9): Status: Chronic Plan - Dr. Dulce Caballero, DO: The patient has a large cervical polyp and multiple fibroids in the uterus. Her vagina has limited access due to nulliparity and she is obese. she is a good candidate for polypectomy only, however she wants more definitive treatment. based on her request, she would be a good candidate for polypectomy followed by insertion of uterine manipulator and laparoscopic (robotic) hysterectomy. Plan to RTO for pre-op exam. UPDATE- I have seen the patient and performed any clinically relevant updates to the history and physical exam. Dr. Dulce Caballero, DO
--- NOTE | 2021-08-29 07:30 | HYST_PTH ---
PATIENT: VIRGINIA JOHNSTON LOC: [facility] [place] U#:[id number] AGE/SX: 45/F ROOM: RE08/29/[address]: Dr. Dulce Caballero DO : 1975 BED: DIS: 08/29/2021 SPEC #: [id number] RECD: 08/30/21 07:16 STATUS: DEBBIE OLIVERACece #: [id number] CLAUDIA: 08/29/21 07:[address]: Dulce Caballero DEPT: SURGICAL PATHOLOGY RECD BY: Roberto Carlos Grant ENTERED: 08/30/21 10:05 SP TYPE: HYSTERECT OTHR DR: Dr. Hermilo Ray MD Tissues: Uterus, NOS Procedures: Surgery Specimen Level V HEADER OPERATION: Lap robotic hysterectomy, bilateral salpingectomy, cystoscopy PRE-OP DIAGNOSIS: ASCUS of cervix with negative high-risk HPV, cervical mas, obesity TISSUE SUBMITTED: Cervix, uterus, bilateral fallopian tubes and cervical mass MICROSCOPIC DIAGNOSIS Uterus, hysterectomy: Cervix ? squamous metaplasia, chronic inflammation and nabothian cysts. Fragments of benign endocervical polyp, inflamed. See comment. Endometrium ? transition endometrium. Myometrium ? leiomyomas. Right fallopian tube ? benign paratubal cyst. Left fallopian tube - no pathologic change. AM:julius 08/31/2021 COMMENT The fragment free in container and the endocervical polyp have a similar histologic appearance. MICROSCOPIC DESCRIPTION Slides are reviewed. GROSS DESCRIPTION Received in fixative is one container labeled with the patient's name and designated uterus. The specimen consists of a uterus with attached right and left fallopian tubes. Present free in the container is an irregular fragment of yellow-white soft tissue measuring 2.5 x 2 x 1 cm. The uterus with cervix measures 3.5 x 4.5 x 4.5 cm and weighs 83.4 gm. The ectocervix is grossly unremarkable. The cervical os is oval in contour. The paracervical tissue is inked in black ink. The endocervical canal measures 3.4 cm in length and contains a flesh, sena-pink polyp measuring 2 cm in greatest dimension. The triangular endometrial cavity measures 3.5 x 2.2 cm. The reddish-sena, velvety endometrium measures up to 0.2 cm in thickness. The cervix is amputated from the uterus. The clamped amputation is inked in red ink. The myometrium is distorted by multiple spherical, rubbery nodules ranging in size from 0.7 to 2.8 cm in greatest dimension. The myometrium measures 1.3 cm in average thickness. The right fallopian tube measures 7 cm in length and 0.6 cm in average diameter. A normal fimbrial end is present. The soft tissue adjacent to the fimbrial end contains a smooth, glistening cyst measuring 1.5 cm and containing clear fluid. The left fallopian tube measures 5.5 cm in length and 0.6 cm in average diameter. A normal fimbrial end is identified. Senior Cisco Network Engineer sections are submitted in 17 cassettes as follows: 1 & 2 - cervix, 12-3 o?clock, 3 - cervix, 3-6 o?clock, 4 & 5 - cervix, 6-9 o?clock, 6 & 7 - cervix, 9-12 o?clock, 8??fragment free in container, 9 - endocervical polyp, 10 & 11 - anterior myometrial wall, 12 & 13 - posterior myometrial wall, 14 & 15 - leiomyomas, 16 - right fallopian tube and paratubal cyst, 17 - left fallopian tube. / AM:julius 08/30/21 TC:1 CPT: 07661
[2021-08-29] MEDS: Bupivacaine 0.25% 30 ML Vial (09:24)
--- NOTE | 2021-08-29 09:32 | PCM.DC ---
Discharge Instructions Diet Discharge Diet: No restrictions Activity May resume sexual activity in: 6 weeks Weight Bearing Status: Full weight bearing Dressing / Incision Call your doctor if your incision/area has: Continuous Slow Oozing, Sudden Increased Bleeding, Increased Pain/ Swelling, Increased Redness and Foul Smelling Discharge Call your doctor if you observe: Fever of 101 or Higher, Using more than 1 pad per hour, Shortness of breath, Chest pain and Uncontrolled pain Suture Line Care: Avoid Pulling/Pushing and Avoid Pinching/Bending Remove Dressing in: 1 week (if present) Cleanse incision/area with: Soap & Water and Keep Dressing Clean & Dry Follow Up Care Please Follow Up With: Dulce Caballero DO When: Call to make an appointment with your doctor for a postop visit in 2 and 6 weeks Test Results: Test results from this visit will be discussed in further detail at your follow-up appointment, if applicable. Discharge Plan Admission Primary Reason for Your Visit: hysterectomy Attending Provider: Dulce Caballero Primary Care Provider: Hermilo Ray Chi Instructions Patient Instructions: After Laparoscopic ... Discharge Orders/Prescriptions Prescriptions: New oxycodone-acetaminophen [Percocet] 5-325 mg tablet 1 tab PO Q4H PRN (Reason: pain) 7 Days Qty: 28 RF: 0 ibuprofen 800 mg tablet 800 mg PO Q8H PRN (Reason: pain) 7 Days Qty: 30 RF: 0 docusate sodium [Colace] 100 mg capsule 100 mg PO DAILY 14 Days Qty: 14 RF: 0 Continued multivitamin Tablet 1 tab PO DAILY RF: 0 Hair, Skin and Nails Advanced 3.3 mg iron-25 mcg tablet 1 tab PO DAILY RF: 0 vitamin B complex Capsule 1 cap PO DAILY RF: 0 Referrals / Follow Up: Hermilo Ray Chi, MD [Primary Care Provider] - Disposition Disposition (needs filled in before D/C Order can be placed): Home, Self Care
--- NOTE | 2021-08-29 09:47 | OP.PCM_ITS ---
Operative Report Date of Procedure: 08/29/21 Preoperative diagnosis:fibroid uterus, uterine/cervical mass, menorrhagia, obesity Postoperative diagnosis:Fibroid uterus, uterine/cervical mass, menorrhagia, obesity Procedure: Total robotic hysterectomy bilateral salpingectomy and cystoscopy Anesthesia: General endotracheal intubation Estimated blood loss: 35cc Urine output:1000 Drains: None Implanted material: None Complications: None Findings: 8 size uterus, normal appearing ovaries and tubes. Large cervical mass. On exploration of the abdominal cavity the uterus, adnexa, bowel, and liver were found to be normal. Cystoscopy showed no evidence of leaking at approximately 250 cc of normal saline, positive ureteral orifices and jet flow are seen and no suture material was appreciated in the bladder. Specimens removed: Uterus and cervix, Bilateral tubes and ovaries Reason for surgery: This is a 45-year-old G0, P0 who presented to my office with history of postcoital bleeding, menorrhagia, pelvic pain, and fibroid uterus the planned procedure is for a robotic hysterectomy the risks benefits and alternatives were discussed with the patient the patient had a clear understanding of the procedure and a consent form was signed. Procedure: The patient was placed in the dorsal low lithotomy position and prepped and draped in the normal sterile fashion both abdominally and in the perineum. Her legs were placed in stirrups a English catheter was inserted into the urethra without difficulty. A weighted speculum was placed in the vagina and a single- tooth tenaculum was used to grasp the anterior lip of the cervix. A Vcare uterine manipulator was inserted through the cervix without complication. It was then tied into place at the 2 and 10:00 locations on the cervix. Gloves were changed and attention was turned towards the abdomen. Approximately 23 cm above the pubic symphysis in the midline, and after Marcaine injection, a 8 mm incision was made. An 8 mm trocar was inserted through the laparoscope, then inserted into the abdomen under direct visualization using the laparoscope. Good abdominal placement was noted and no complications were appreciated. An air seal device was utilized to create pneumoperitoneum. At 12 cm lateral to the midline on the left and right sides 8 mm accessory ports were placed. Next a left upper quadrant 8 mm assistant project engineer port site was placed. The patient was placed in steep Trendelenburg position. The robot was docked. The hysterectomy was initiated first by taking down the round ligament on each side using the vessel sealer device. Both fallopian tubes were also removed by cauterizing and cutting the underlying mesosalpinx to the level of the coruna. the broad ligament was then and taken down using the vessel sealer device. Next the bladder flap was taken down without complication. This was done using monopolar cautery to the level of the cervical vaginal junction. After the bladder flap was created, uterine vessels were then isolated and cauterized using the vessel sealer device and EndoShears. At this point the uterine vessels were taken down further starting from the ascending branch, dissecting along the edges of the cervix to the level of the cervical vaginal junction with hemostasis appreciated. The cervical vaginal junction was then using monopolar cautery in a circumferential pattern across the superior aspect of the cervix. The specimen was delivered through the vagina and sent to pathology. The remaining vaginal cuff was then closed using OV lock suture. This was performed in a running technique. Excellent hemostasis was obtained and good closure was noted. Irrigation was then performed. All operative sites were noted to be hemostatic. A cystoscopy was performed with a 70 degree cystoscope through the urethra into the bladder without complication. The bladder was instilled with approximately 250 cc of normal saline. Intraoperative images were made. Ureteral orifices and jets were identified. No suture material was appreciated in the bladder. The bladder was then drained and cystoscope was removed. The abdominal cavity was again examined using the laparoscope after the robot was undocked. All operative sites were noted to be hemostatic. The trochars were removed under direct visualization without complication and pneumoperitoneum was reduced. At this point the skin was then closed using 4-0 Monocryl subcuticular stitch and sealed with surgical glue. The patient tolerated the procedure well sponge lap and needle counts were correct x2 the patient was taken to the recovery room in stable condition.
[2021-08-29] MEDS: oxyCODONE 5 MG Tablet PO (13:33)
--- NOTE | 2021-08-29 17:18 | SUR.PHASEII ---
pt. is ready to go home. she has ambulated to the bathroom and voided. she is dressing now. rn has called her ride to come. they will arrive shortly.
== END 2021-08-29 18:07 | disposition home or self-care (01) ==
LOC: SDC 05:10 → AC 05:10
PROVIDERS: Anesthesiology; PCP Family Medicine Geriatric Medicine; Referring Provider Obstetrics & Gynecology; Visit Provider Obstetrics & Gynecology
PROC: 0UT94ZZ Resection of Uterus, Percutaneous Endoscopic Approach (ICD-10-PCS; CPT 58571; principal; 2021-08-29 07:10)
DX: D25.9 Leiomyoma of uterus, unspecified (principal); N72 Inflammatory disease of cervix uteri; N92.0 Excessive and frequent menstruation with regular cycle; N88.8 Other specified noninflammatory disorders of cervix uteri; N83.8 Other noninflammatory disorders of ovary, fallopian tube and broad ligament; N84.1 Polyp of cervix uteri; E66.9 Obesity, unspecified; Z68.30 Body mass index [BMI] 30.0-30.9, adult; Z79.899 Other long term (current) drug therapy
CPT/HCPCS: 00840; 58571; S2900; 81025; 82962; 83735; 85027; 86850; 86900; 86901; 87426; 88307; C9803; J7120; A4216; J2405

== ENCOUNTER 2021-09-13 03:43 | Emergency (ER) | payer OTHER, SELFPAY ==
[2021-09-13 03:44] VITALS: BP 135/97; PULSE 79; RESP 18; TEMP 36.3; O2SAT 97; BMI 39.1
--- NOTE | 2021-09-13 05:46 | EDS_ITS ---
HPI HPI - Female History of Present Illness Chief Complaint: Female C/O Informant: patient Pain Onset: Days (4-5) Context: Gradual Onset Timing: Continuous Quality: Positive for Aching and Sharp Location: - (left mid-abd, w/ some discomfort into vagina also) Current Severity: Moderate Maximum Severity: Moderate Worsened by: - (walking) Relieved by: Remaining Still Bleeding Issue: Negative for Vaginal bleeding, Passing clots and Passing tissue Associated Symptoms Associated Symptoms: Negative for Dysuria, Frequency, Urgency and Hematuria Narrative Narrative: Patient 2 weeks post hysterectomy, she has been having intermittent discomfort in her left mid abdomen that has been gradually worsening, especially tonight. She had a follow-up appointment with her OB Dr. Rizzo in the morning, but the pain became worse that she came to get reevaluated. She was concerned maybe she had an abscess, because the pain is similar to when she had a postoperative abscess for a different surgery years ago, a herniorrhaphy. She denies any fevers or chills. She is having normal bowel movements, she denies any vaginal discharge or bleeding. Normal urination. She denies any nausea or vomiting. Pain does not radiate into her back. No history of kidney stones that she knows of. [facility] Medical History Anxiety ASCUS of cervix with negative high risk HPV History of edema Leg cramps Non-smoker Restless legs Umbilical hernia Wears glasses Home Medications multivitamin 1 tab PO DAILY 08/02/21 [History Last Taken Unknown] multivitamin,min-ferrous fumarate 3.3 mg-folic 25 mcg-herb tablet 1 tab PO DAILY 08/02/21 [History Last Taken Unknown] vitamin B complex 1 cap PO DAILY 08/24/21 [History Last Taken Unknown] docusate sodium [Colace] 100 mg PO DAILY 14 Days #14 cap 08/29/21 [Rx Last Taken Unknown] ibuprofen 800 mg PO Q8H PRN 7 Days #30 tab 08/29/21 [Rx Last Taken Unknown] acetaminophen [Acetaminophen Pain Relief] 1,000 mg PO Q6H PRN 09/13/21 [History Last Taken 09/13/21 02:30] ciprofloxacin HCl 500 mg PO BID #20 tablet 09/13/21 [Rx Last Taken Unknown] metronidazole 500 mg PO BID #20 tab 09/13/21 [Rx Last Taken Unknown] oxycodone-acetaminophen 1 tab PO Q4H PRN 09/13/21 [History Last Taken Unknown] Allergy/AdvReac Type Severity Reaction Status Date / Time hydrocodone [From [place]] AdvReac Other Verified 09/13/21 03:47 Family History Father Diabetes Esophageal cancer Mother Diabetes Surgical History H/O wrist surgery History of hernia repair Social History household members: spouse current occupational status: employed current occupation: [employer] Smoking Status: Never smoker alcohol intake: current alcohol intake frequency: holidays/special occasions o nly substance use type: does not use what type of physical activity do you participate in: none seatbelt use: always do you feel safe at home: Yes additional social history: - Rusty ROS ROS ED Constitutional Constitutional ED: Denies chills or fever(s) Eyes Eyes: Denies change in vision or diplopia ENT ENT ED: Denies rhinorrhea or sore throat Cardiovascular Cardiovascular: Denies chest pain or palpitations Respiratory/Chest Respiratory/Chest: Denies cough or dyspnea Gastrointestinal Gastrointestinal: Reports abdominal pain; Denies diarrhea, nausea or vomiting Genitourinary Genitourinary ED: Denies dysuria or hematuria Musculoskeletal Musculoskeletal: Denies back pain or neck pain Integumentary Denies abscess or rash Neurologic Neurologic: Denies headache(s), paresthesias or weakness Psychiatric Psychiatric: Denies anxiety or suicidal thoughts EXAM Physical Exam Const Vital Signs: 09/13/21 03:44 09/13/21 06:08 Temperature 97.4 F L Temperature Source Temporal Pulse Rate 79 73 Respiratory Rate 18 16 Blood Pressure 135/97 H Blood Pressure Mean 109 Pulse Ox 97 99 Oxygen Delivery Method Room Air Room Air Positive well nourished and well developed General Appearance ED: well developed and NAD Nutritional Appearance: morbidly obese HEENT Reports moist mucous membranes normocephalic and atraumatic Eyes PERRL and EOMs intact bilaterally Neck full ROM and supple Resp normal respiratory effort and clear to auscultation bilaterally Cardio regular rate, regular rhythm and no murmurs GI non-tender and non-distended GI Narrative: Very tender left mid abdomen. This is in the vicinity of 1 or 2 laparoscopic surgical incisions, they are very benign appearing, there is no dehiscence, signs of infection, or discharge even with palpation. No guarding or rebound tenderness. No other areas of tenderness. Obesity does limit the exam. No palpable masses. Auscultation: normoactive bowel sounds Palpation: soft Back/Spine no CVA tenderness General Back: other FROM Extremity normal to inspection General Extremety ED: Negative for edema, pulses abnormal or tenderness General Extremity: Negative for edema or pulses abnormal Neuro oriented x3, CN's II-XII intact bilaterally and no sensory deficits noted Sensorium / Orientation: awake and alert Motor Exam: strength 5/5 throughout Skin no rashes or lesions noted and no wounds MDM MDM MDM Narrative Medical decision making narrative: Work-up shows diverticulitis, no other acute abnormality, patient reassured there is no intra-abdominal abscess or any surgical emergency at this time. She does not have significant leukocytosis at all, nor a leftward shift or bandemia. She is clinically hemodynamically stable and is tender, but not in a lot of pain which we did treat here. Stable for outpatient treatment on my judgment, started her on Cipro and Flagyl here and given appropriate discharge instructions prescriptions for both. Lab Data Attestation: I reviewed the patient's lab results. Labs: Laboratory Results - last 24 hr 09/13/21 09/13/21 09/13/21 05:51 06:00 06:00 WBC 9.6 RBC 4.66 Hgb 12.9 Hct 40.2 MCV 86.3 MCH 27.7 MCHC 32.1 RDW Std Deviation 44.0 H RDW Coeff of Collin 13.9 Plt Count 270 MPV 11.3 Immature Gran % (Auto) 0.200 Neut % (Auto) 60.5 Lymph % (Auto) 28.8 [place] % (Auto) 5.6 Eos % (Auto) 4.4 Baso % (Auto) 0.5 Absolute Neuts (auto) 5.8 Absolute Lymphs (auto) 2.76 Nucleated RBC % 0 Sodium 138 Potassium 3.6 Chloride 103 Carbon Dioxide 28.0 Anion Gap 7 BUN 15 Creatinine 0.74 Estim Creat Clear Calc 93.36 Est GFR (MDRD) Af Amer 109 Est GFR (MDRD) Non-Af 90 BUN/Creatinine Ratio 20.4 H Glucose 132 H Calcium 8.9 Urine Color Yellow Urine Clarity Clear Urine pH 6.0 Ur Specific [place] 1.010 Urine Protein 15 H Urine Glucose (UA) Normal Urine Ketones Negative Urine Occult Blood Negative Urine Nitrite Negative Urine Bilirubin Negative Urine Urobilinogen Normal Ur Leukocyte Esterase 25 H Urine RBC 0 SEEN Urine WBC 0 SEEN Ur Squamous Epith Cells 0 SEEN Urine Bacteria 1+ Urine Mucus 0 SEEN Radiography Diagnostic Testing: Clinical Impression(s) from Imaging Studies Abdomen/Pelvis CT 09/13/21 05:46 IMPRESSION: Mild to moderate constipation. Diverticulosis and diverticulitis. No hydronephrosis. No appendicitis. Status post hysterectomy. Electronically Signed: Dixie Patel MD at 6:54 EST Tel , Service support , Discharge Plan Triage Chief Complaint: Female C/O ED Provider: Saurav Toledo Dx/Rx/DC Orders Clinical Impression: Diverticulitis Instructions: ED Diverticulitis Prescriptions: New metronidazole [metronidazole] 500 MG tablet 500 mg PO BID Qty: 20 RF: 0 ciprofloxacin HCl [ciprofloxacin HCl] 500 MG tablet 500 mg PO BID Qty: 20 RF: 0 No Action multivitamin Tablet 1 tab PO DAILY RF: 0 Hair, Skin and Nails Advanced 3.3 mg iron-25 mcg tablet 1 tab PO DAILY RF: 0 vitamin B complex Capsule 1 cap PO DAILY RF: 0 ibuprofen 800 mg tablet 800 mg PO Q8H PRN (Reason: pain) 7 Days Qty: 30 RF: 0 docusate sodium [Colace] 100 mg capsule 100 mg PO DAILY 14 Days Qty: 14 RF: 0 oxycodone-acetaminophen 5-325 mg Tablet 1 tab PO Q4H PRN (Reason: Pain) RF: 0 acetaminophen [Acetaminophen Pain Relief] 500 mg Tablet 1,000 mg PO Q6H PRN (Reason: Pain) RF: 0 Primary Care Provider: Hermilo Ray Chi Referrals: Hermilo Ray Chi, MD [Primary Care Provider] - 3-5 Days if not improving Disposition Disposition: Home, Self Care
--- NOTE | 2021-09-13 05:46 | CT_ITS ---
STUDY: CT ABDOMEN AND PELVIS WITH CONTRAST REASON FOR EXAM: Female, 45 years old. Left abd pain, recent hysterectomy RADIATION DOSAGE (If Supplied By Facility): CTDIvol = ( 20.54 ) mGy, DLP = ( 1640.82 ) mGycm TECHNIQUE: Transaxial images were obtained from the dome of the diaphragm to the symphysis pubis without oral contrast. IV 100mL Isovue-300 was administered. Sagittal and coronal images were reconstructed. Individualized dose optimization techniques were used for this CT. COMPARISON: CT abdomen and pelvis 04/26/2021 FINDINGS: The visualized lung bases are unremarkable. The visualized portions of the heart are within normal limits. Normal liver. Normal gallbladder and extrahepatic biliary system. Normal spleen. Normal pancreas. Normal bilateral adrenal glands. Normal right kidney. Normal left kidney. Normal visualized stomach. Normal small intestine. There is mild to moderate stool in the colon. There is diverticulosis without visualized diverticulitis. The appendix is visualized and appears normal. Normal abdominal aorta. Normal inferior vena cava. Normal retroperitoneum. Normal urinary bladder. There is absence of the uterus consistent with a prior hysterectomy. Normal abdominal wall. There are diffuse degenerative changes of the visualized lumbar spine. CT/Abdomen/Pelvis W IV Cont ONLY IMPRESSION: Mild to moderate constipation. Diverticulosis and diverticulitis. No hydronephrosis. No appendicitis. Status post hysterectomy. Electronically Signed: Dixie Patel MD at 6:54 EST Tel , Service support ,
[2021-09-13] MEDS: 0.9% Normal Saline 1,000 ML 1000 ML IV (06:02)
[2021-09-13] MEDS: Morphine 4 MG/ML Syringe IV (06:03)
[2021-09-13 06:08] VITALS: PULSE 73; RESP 16; O2SAT 99
[2021-09-13 06:26] LABS: Absolute Lymphocyte Count 2.76 X10^3/uL (0.83-4.51); Absolute Neutrophil Count 5.8 X10^3/uL (2.0-7.7); Basophil# 0.05 X10^3/uL; Basophil% 0.5 % (0-1); Eosinophil# 0.42 X10^3/uL; Eosinophils% 4.4 % (0-5); Hematocrit 40.2 % (37-47); Hemoglobin 12.9 g/dL (12.0-15.0); Lymphocyte # 2.76 X10^3/ul (0.83-4.51); Lymphocyte % 28.8 % (19-41); Mean Corp Hgb Conc 32.1 g/dL (32-36); Mean Corpuscular Hgb 27.7 pg (27.0-32.0); Mean Corpuscular Volume 86.3 fL (81-99); Mean Platelet Vol. 11.3 fl (6.2-12.0); Monocyte# 0.54 X10^3/uL; Monocyte% 5.6 % (0-10); NRBC Flagged by Analyzer 0 % (0-5); Neutrophil % 60.5 % (47-70); Platelet Count 270 K/mm3 (150-450); RBC Distribution Width CV 13.9 % (11.6-14.6); Red Blood Count 4.66 M/mm3 (4.2-5.4); White Blood Count 9.6 K/mm3 (4.4-11.0)
[2021-09-13 06:34] LABS: Color, Urine Yellow (Yellow); Glucose, Dipstick Normal (Normal); Ketone-Dipstick Negative (Negative); Leukocyte Esterase-Dipstick 25 /ul (Negative); Mucous, Urine 0 SEEN /hpf (<or=2+); Nitrite-Dipstick Negative (Negative); Occult Blood-Urine Negative /ul (Negative); Protein-Dipstick 15 mg/dl (Negative); Red Blood Cells-Urine 0 SEEN /hpf (0-5); Squamous Epithelial Cells - UA 0 SEEN /hpf (5-10); Urine Bilirubin Dipstick Negative (Negative); Urine Clarity Clear (Clear); Urine Urobilinogen Normal (Normal); White Blood Cells 0 SEEN /hpf (0-5)
[2021-09-13 06:34] LABS: Anion Gap 7 (5-15); BUN 15 mg/dL (7-18); BUN/Creat Ratio 20.4 RATIO (10-20); Calcium,Total 8.9 mg/dL (8.5-10.1); Chloride 103 mmol/L (98-107); Creatinine, Serum 0.74 mg/dL (0.55-1.02); EST Glomerular Filtration Rate 90 mL/min (>60); Est Glom Filt Rate - Afr Amer 109 mL/min (>60); Estimated Creatinine Clearance 93.36 ml/min; Glucose 132 mg/dL (74-106); Potassium 3.6 mmol/L (3.5-5.1); Sodium Level 138 mmol/L (136-145)
[2021-09-13 06:55] LABS: Bacteria 1+ /hpf (None Seen)
[2021-09-13] MEDS: Ciprofloxacin 500 MG Tablet PO (08:14)
[2021-09-13] MEDS: metroNIDAZOLE 500 MG Tablet PO (08:14)
[2021-09-13 08:24] VITALS: BP 145/76; PULSE 86; RESP 16; O2SAT 97
== END 2021-09-13 08:25 | disposition home or self-care (01) ==
PROVIDERS: Emergency Provider Emergency Medicine; PCP Family Medicine Geriatric Medicine
DX: K57.92 Diverticulitis of intestine, part unspecified, without perforation or abscess without bleeding (principal); Z79.899 Other long term (current) drug therapy; Z90.710 Acquired absence of both cervix and uterus
CPT/HCPCS: 74177; 80048; 81001; 85025; 96361; 96374; 99285; J7030; Q9967; A4216

== ENCOUNTER 2021-10-16 09:54 | Outpatient (CLI) | payer BC, SELFPAY ==
[2021-10-16 10:17] LABS: Absolute Lymphocyte Count 2.12 X10^3/uL (0.83-4.51); Absolute Neutrophil Count 7.8 X10^3/uL (2.0-7.7); Basophil# 0.06 X10^3/uL; Basophil% 0.5 % (0-1); Eosinophil# 0.29 X10^3/uL; Eosinophils% 2.6 % (0-5); Hematocrit 40.9 % (37-47); Hemoglobin 13.3 g/dL (12.0-15.0); Lymphocyte # 2.12 X10^3/ul (0.83-4.51); Lymphocyte % 19.2 % (19-41); Mean Corp Hgb Conc 32.5 g/dL (32-36); Mean Corpuscular Hgb 28.3 pg (27.0-32.0); Mean Platelet Vol. 11.7 fl (6.2-12.0); Monocyte# 0.71 X10^3/uL; Monocyte% 6.4 % (0-10); NRBC Flagged by Analyzer 0 % (0-5); Neutrophil # 7.81 X10^3/uL (2.7-7.7); Neutrophil % 70.7 % (47-70); Platelet Count 301 K/mm3 (150-450); RBC Distribution Width CV 13.9 % (11.6-14.6); RBC Distribution Width SD 44.7 fl (35.1-43.9); White Blood Count 11.1 K/mm3 (4.4-11.0)
[2021-10-16 10:49] LABS: Vitamin D,25 Hydroxy 17.8 ng/mL
[2021-10-16 11:02] LABS: ALB/GLOB Ratio 0.9 RATIO (0.9-2.4); AST(SGOT) 16 U/L (15-37); Alanine Aminotransfer ALT/SGPT 18 U/L (13-56); Albumin, Serum 3.5 g/dL (3.2-5.0); Alkaline Phosphatase 101 U/L (45-117); Anion Gap 4 (5-15); BUN 8 mg/dL (7-18); BUN/Creat Ratio 9.9 RATIO (10-20); Chloride 105 mmol/L (98-107); Creatinine, Serum 0.81 mg/dL (0.55-1.02); EST Glomerular Filtration Rate 81 mL/min (>60); Est Glom Filt Rate - Afr Amer 98 mL/min (>60); Globulin 3.7 g/dL (2.2-4.2); Glucose 115 mg/dL (74-106); Potassium 3.8 mmol/L (3.5-5.1); Protein, Total 7.2 g/dL (6.4-8.2); Sodium Level 138 mmol/L (136-145); Thyroid Stim Hormone (TSH) 1.78 uIU/mL (0.358-3.74)
== END 2021-10-16 23:59 | disposition short-term general hospital (02) ==
LOC: POLAB3 09:55
PROVIDERS: PCP Family Medicine Geriatric Medicine; Visit Provider Family Medicine Geriatric Medicine
DX: R53.83 Other fatigue (principal); E55.9 Vitamin D deficiency, unspecified
CPT/HCPCS: 36415; 80053; 82306; 84443; 85025

== ENCOUNTER → 2022-05-03 | Outpatient (CLI) | payer BC, SELFPAY | END | disposition home or self-care (01) | LOC: POLAB3 13:59 → LABSPEC 14:00 | PROVIDERS: PCP Family Medicine Geriatric Medicine; Visit Provider Family Medicine Geriatric Medicine | DX: N39.0 Urinary tract infection, site not specified (principal) | CPT/HCPCS: 87086; 87088 ==

== ENCOUNTER 2022-08-14 06:58 | Emergency (ER) | payer BC, SELFPAY ==
[2022-08-14 06:58] VITALS: BP 170/93; PULSE 88; RESP 18; TEMP 36.6; O2SAT 99; BMI 39.1
[2022-08-14 07:00] VITALS: BP 170/93; PULSE 88; RESP 18; TEMP 36.6; O2SAT 98
--- NOTE | 2022-08-14 07:09 | ED.VIS.FEGU ---
HPI HPI - Female History of Present Illness Chief Complaint: Complaint Narrative Narrative: 46-year-old male status post remote hysterectomy presents with urinary frequency and urgency, low back pain, and hematuria. She states she began having symptoms a few days ago may have had chills yesterday but was experiencing urinary frequency and urgency. This morning when she awoke she had blood in her urine. She thinks that she may have a urinary tract infection again, the last being a few years ago. She denies any fever. No nausea or vomiting. No exacerbating or alleviating factors. Of note, she does state that in the past, she let a urinary tract infection go too long to the point where she had a blood infection. [facility] Medical History Anxiety ASCUS of cervix with negative high risk HPV COVID-19 Fatigue Headache History of edema Leg cramps Non-smoker Restless legs Umbilical hernia Wears glasses Home Medications dexamethasone 6 mg tablet (Decadron) 6 mg PO DAILY #5 tabs 04/11/22 [Rx Last Taken Unknown] sulfamethoxazole 800 mg-trimethoprim 160 mg tablet (Bactrim DS) 1 tab PO BID #14 tabs 08/14/22 [Rx Last Taken Unknown] Allergy/AdvReac Type Severity Reaction Status Date / Time hydrocodone [From [place]] AdvReac Other Verified 08/14/22 07:00 Family History Father Diabetes Esophageal cancer Mother Diabetes Surgical History H/O hysterectomy for benign disease H/O wrist surgery History of hernia repair Social History household members: spouse current occupational status: employed current occupation: [employer] Smoking Status: Never smoker alcohol intake: current alcohol intake frequency: holidays/special occasions only substance use type: does not use what type of physical activity do you participate in: none seatbelt use: always do you feel safe at home: Yes additional social history: - Rusty ROS ROS ED ROS Narrative Constitutional: No fever, rare chills yesterday. HEENT: No sore throat. No neck pain. No loss of vision. No rhinorrhea. Cardiovascular: No chest pain. No palpitations. No pedal edema. Respiratory: No cough, no shortness of breath. Abdominal: No abdominal pain. No nausea. No vomiting. Genitourinary: No dysuria. Positive hematuria. Urinary frequency and urgency Musculoskeletal: No myalgias. No arthralgias. Positive low back pain. Neurologic: No headaches. No dizziness. No lightheadedness. Skin: No rash. No change in color. Psychiatric: No depression. No anxiety. EXAM Physical Exam Narrative Exam Narrative: Afebrile. Vital signs noted. Nontoxic-appearing. HEENT: Normocephalic. Atraumatic. PERRL, EOMI. Neck soft and supple. No point tenderness or step off. Cardiovascular: Regular rate and rhythm. No murmurs, rubs, or gallops appreciated. Respiratory: No tachypnea. Lungs clear to auscultation bilaterally. Gastrointestinal: Abdomen soft, nontender, with normoactive bowel sounds. No rebound or guarding. Neurological: Awake. Alert. Nonfocal, nonlateralizing. Skin: No rash. Normal color. No pallor. Musculoskeletal: No pedal edema. Full range of motion extremities. No CVA tenderness to percussion bilaterally. No point tenderness or step-off of lumbar spine. Const Vital Signs: 08/14/22 06:58 08/14/22 07:00 Temperature 97.9 F 97.9 F Temperature Source Temporal Temporal Pulse Rate 88 88 Respiratory Rate 18 18 Blood Pressure 170/93 H 170/93 H Blood Pressure Mean 118 118 Pulse Ox 99 98 Oxygen Delivery Method Room Air Room Air MDM MDM MDM Narrative Medical decision making narrative: Urinalysis was obtained. Urinalysis shows 10-25 WBCs but negative nitrites. She was given her first dose of Bactrim here in the emergency department and prescription written for the next 7 days. She was also given a note to be off work today. She has elevated blood pressure. She is asymptomatic with this. She was told that she needs to have this addressed with her primary care provider and have a log of her blood pressure over the next few days. I feel she can be discharged safely home with follow-up. Return instructions were reviewed. Disposition is discharged home in stable condition. Lab Data Attestation: I reviewed the patient's lab results. Labs: Laboratory Results - last 24 hr 08/14/22 08:12 Urine Color Yellow Urine Clarity Clear Urine pH 6.5 Ur Specific Orient 1.005 Urine Protein 30 H Urine Glucose (UA) Normal Urine Ketones Negative Urine Occult Blood 250 H Urine Nitrite Negative Urine Bilirubin Negative Urine Urobilinogen Normal Ur Leukocyte Esterase 500 H Urine RBC 0-5 SEEN Urine WBC 10-25 SEEN Ur Squamous Epith Cells 0 SEEN Urine Bacteria 0 SEEN Urine Mucus 0 SEEN Discharge Plan Triage Chief Complaint: Complaint ED Provider: J Luis Irving Dx/Rx/DC Orders Clinical Impression: UTI (urinary tract infection), Elevated blood pressure reading without diagnosis of hypertension Instructions: ED Hypertension, To Be Confirmed Prescriptions: New sulfamethoxazole-trimethoprim [Bactrim DS] 800-160 mg tablet 1 tab PO BID Qty: 14 0RF No Action dexamethasone [Decadron] 6 mg tablet 6 mg PO DAILY Qty: 5 0RF Stand Alone Forms: ED Work / School Excuse Primary Care Provider: Hermilo Ray Chi Referrals: Hermilo Ray Chi, MD [Primary Care Provider] - 3-5 Days Activity Restrictions/Additional Instructions: Keep track of your blood pressure and have a log ready for your primary care provider. Have it rechecked in the next 3 to 5 days. Disposition Disposition: Home, Self Care
[2022-08-14 08:16] LABS: Bacteria 0 SEEN /hpf (None Seen); Mucous, Urine 0 SEEN /hpf (<or=2+); Squamous Epithelial Cells - UA 0 SEEN /hpf (5-10)
[2022-08-14 08:21] LABS: Color, Urine Yellow (Yellow); Glucose, Dipstick Normal (Normal); Ketone-Dipstick Negative (Negative); Leukocyte Esterase-Dipstick 500 /ul (Negative); Nitrite-Dipstick Negative (Negative); Occult Blood-Urine 250 /ul (Negative); Protein-Dipstick 30 mg/dl (Negative); Specific Gravity, Urine 1.005 (1.002-1.030); Urine Bilirubin Dipstick Negative (Negative); Urine Clarity Clear (Clear); Urine Urobilinogen Normal (Normal); Urine pH 6.5 (5.0 - 8.0)
[2022-08-14 08:30] LABS: Red Blood Cells-Urine 0-5 SEEN /hpf (0-5); White Blood Cells 10-25 SEEN /hpf (0-5)
[2022-08-14] MEDS: Smz/Tmp Ds Tablet 1 TABLET PO (09:10)
== END 2022-08-14 09:34 | disposition home or self-care (01) ==
PROVIDERS: Emergency Provider Emergency Medicine; PCP Family Medicine Geriatric Medicine; Visit Provider Emergency Medicine
DX: N39.0 Urinary tract infection, site not specified (principal); R03.0 Elevated blood-pressure reading, without diagnosis of hypertension; R31.9 Hematuria, unspecified; R35.0 Frequency of micturition; R39.15 Urgency of urination
CPT/HCPCS: 81001; 99282

== ENCOUNTER → 2022-09-29 | Outpatient (CLI) | payer BC, SELFPAY ==
--- NOTE | 2022-09-29 09:25 | MRI_ITS ---
STUDY: MRI RIGHT ANKLE WITHOUT CONTRAST REASON FOR EXAM: Female, 46 years old. PERONEAL TENDONITIS TECHNIQUE: Standardized fat and water weighted pulse sequences were obtained in all 3 orthogonal planes. COMPARISON: None. FINDINGS: Normal subcutis adipose space. Normal posterior tibialis tendon. Normal flexor digitorum longus tendon. Normal flexor hallucis longus tendon. There is a tenosynovitis of the peroneal tendons without a demonstrated tendon tear. Normal tibialis anterior tendon. Normal extensor hallucis longus tendon. Normal extensor digitorum longus tendons. Normal Achilles tendon and teno-osseous insertion. There is a plantar fasciitis with plantar fascial thickening and fascial edema, but without a focal tear. There is a plantar calcaneal spur, but without cancellous marrow edema. Normal intrinsic muscles of the rearfoot. Normal distal tibiofibular syndesmotic ligamentous complex. Normal lateral ligamentous complex. Normal subtalar ligaments and sinus tarsi. Normal deltoid ligamentous complexes. Normal plantar calcaneonavicular (spring) ligament. Normal tibiotalar articulation. Normal talar dome. Normal subtalar articulations. Normal talonavicular articulation. Normal calcaneocuboid articulation. Normal navicular-cuneiform articulations. MRI/Lower Ext Joint Only (Routine) IMPRESSION: 1. Mild peroneal tenosynovitis. 2. Moderate-sized plantar calcaneal enthesophyte with plantar fascia is but no discrete plantar fascial tear. Electronically Signed: Robert Childress MD at 16:19 EST ,
== END | disposition home or self-care (01) ==
PROVIDERS: PCP Family Medicine Geriatric Medicine; Visit Provider Podiatrist
DX: M76.71 Peroneal tendinitis, right leg (principal); M65.9 Synovitis and tenosynovitis, unspecified; M77.31 Calcaneal spur, right foot
CPT/HCPCS: 73721

== ENCOUNTER 2022-10-09 13:45 | Emergency (ER) | payer OTHER, BC, SELFPAY ==
[2022-10-09 13:46] VITALS: BP 159/102; PULSE 87; RESP 16; TEMP 36.3; O2SAT 97; BMI 42.7
--- NOTE | 2022-10-09 14:01 | RAD_ITS ---
STUDY: X-RAY - RIGHT RADIUS AND ULNA REASON FOR EXAM: Female, 46 years old. Pain following injury. TECHNIQUE: 3 view(s) of the forearm. COMPARISON: None. FINDINGS: There is no demonstrated soft tissue swelling. Normal visualized radius. Normal visualized ulna. RAD/Forearm 2 Views IMPRESSION: Normal x-ray examination of the radius and ulna. Electronically Signed: Jose Sandoval MD at 14:31 EST ,
--- NOTE | 2022-10-09 14:01 | EX.ED.UPPERE ---
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 She denies any other injury. Has been ambulatory since then, hurts a little to walk but nothing major. [id number]. No numbness or tingling or loss of function. No shoulder pain. [facility] Medical History Anxiety ASCUS of cervix with negative high risk HPV COVID-19 Fatigue Headache History of edema Leg cramps Non-smoker Restless legs Umbilical hernia Wears glasses Home Medications citalopram 20 mg tablet 20 mg PO DAILY 10/09/22 [History Last Taken Unknown] Allergy/AdvReac Type Severity Reaction Status Date / Time hydrocodone [From [place]] AdvReac Other Verified 10/09/22 14:15 Family History Father Diabetes Esophageal cancer Mother Diabetes Surgical History H/O hysterectomy for benign disease H/O wrist surgery History of hernia repair Social History household members: spouse current occupational status: employed current occupation: [employer] Smoking Status: Never smoker alcohol intake: current alcohol intake frequency: holidays/special occasions only substance use type: does not use what type of physical activity do you participate in: none seatbelt use: always do you feel safe at home: Yes additional social history: - Rusty ROS ROS ED Constitutional Constitutional ED: Denies chills or fever(s) Musculoskeletal Musculoskeletal: Reports extremity pain; Denies neck pain Integumentary Denies Abrasions, rash or wounds Neurologic Neurologic: Denies paresthesias or weakness EXAM Physical Exam Const Vital Signs: 10/09/22 13:46 Temperature 97.3 F L Temperature Source Temporal Pulse Rate 87 Respiratory Rate 16 Blood Pressure 159/102 H Blood Pressure Mean 121 Pulse Ox 97 Oxygen Delivery Method Room Air Positive well nourished and well developed General Appearance ED: well developed and NAD Neck full ROM and supple Back/Spine normal ROM and normal to inspection Extremity normal to inspection and full ROM Extremity Narrative: Painful range of motion of right elbow and wrist without major limitations. Tender throughout the entire distribution of the ulna. No obvious signs of trauma. Full extension of the elbow is able to be done without significant difficulty. Able to pronate and supinate. No snuffbox tenderness, no hand or radius tenderness. No deformities. With regard to the right hip, the greater trochanter is nontender, and she has painless internal and external rotation at the joint without groin pain. The area where she is tender is just distal and posterior to the greater trochanter. There is no obvious signs of trauma there. Neuro oriented x3, no focal motor deficits, no sensory deficits noted and gait normal Sensorium / Orientation: alert Psych mental status grossly normal and thought process normal Skin no wounds Rashes: no rashes MDM MDM MDM Narrative Medical decision making narrative: Three-view x-ray series of the right forearm was obtained and is negative on my interpretation. Radiology in agreement. Patient reassured, supportive care advised, she was okay with some ibuprofen here, and she will be given appropriate work restrictions mostly with regards to lifting limits until she can follow-up and/or get better. Discharge Plan Triage Chief Complaint: Upper Extremity Injury ED Provider: Saurav Toledo Dx/Rx/DC Orders Clinical Impression: Contusion of forearm, right, Contusion of hip, right Instructions: ED Contusion, Upper Extremity Prescriptions: No Action citalopram 20 mg tablet 20 mg PO DAILY Label Comments: Take 1 Tablet orally once per Day for 90 Days Primary Care Provider: Hermilo Ray Chi Referrals: [facility] [Group of Physicians] - As soon as possible Hermilo Ray Chi, MD [Primary Care Provider] - Disposition Disposition: Home, Self Care
[2022-10-09 15:15] VITALS: RESP 18
[2022-10-09] MEDS: Ibuprofen 600 MG Tablet PO (15:21)
== END 2022-10-09 15:24 | disposition home or self-care (01) ==
PROVIDERS: Emergency Provider Emergency Medicine; PCP Family Medicine Geriatric Medicine; Visit Provider Emergency Medicine
DX: S70.01XA Contusion of right hip, initial encounter (principal); W10.9XXA Fall (on) (from) unspecified stairs and steps, initial encounter; Y99.0 Civilian activity done for income or pay; S50.11XA Contusion of right forearm, initial encounter; F41.9 Anxiety disorder, unspecified; G25.81 Restless legs syndrome; Z79.899 Other long term (current) drug therapy; Z86.16 Personal history of COVID-19
CPT/HCPCS: 73090; 99283

== ENCOUNTER → 2022-10-15 | Outpatient (CLI) | payer OTHER, SELFPAY ==
--- NOTE | 2022-10-15 16:50 | RAD_ITS ---
EXAM: XR RIGHT HIP WITH PELVIS WHEN PERFORMED, 2 OR 3 VIEWS CLINICAL INDICATION: RIGHT HIP PAIN TECHNIQUE: Two or three views of the right hip with pelvis when performed. This report was created using [employer] report generation technology. COMPARISON: None. FINDINGS: BONES/JOINTS: Unremarkable. No displaced fracture. No destructive or sclerotic lesions. Note that overlapping bowel shadows may however obscure fine detail. Sacroiliac joint is unremarkable. No widening of the pubic symphysis. The articular structures are unremarkable. SOFT TISSUES: Unremarkable. No soft tissue swelling or gas. RAD/HIP, UNI W/ Pelvis 2-3 Views IMPRESSION: No evidence of displaced pelvic or hip fracture. Electronically Signed: Beni Dotson MD at 20:23 EST ,
== END | disposition home or self-care (01) ==
PROVIDERS: PCP Family Medicine Geriatric Medicine; Visit Provider Family Medicine Geriatric Medicine
DX: M25.551 Pain in right hip (principal)
CPT/HCPCS: 73502

== ENCOUNTER → 2022-10-17 | Outpatient (CLI) | payer BC, SELFPAY ==
[2022-10-17 17:52] LABS: Absolute Lymphocyte Count 2.37 X10^3/uL (0.83-4.51); Absolute Neutrophil Count 5.7 X10^3/uL (2.0-7.7); Basophil# 0.05 X10^3/uL; Basophil% 0.5 % (0-1); Eosinophils% 4.3 % (0-5); Hematocrit 40.7 % (37-47); Hemoglobin 12.9 g/dL (12.0-15.0); Lymphocyte # 2.37 X10^3/ul (0.83-4.51); Lymphocyte % 25.8 % (19-41); Mean Corp Hgb Conc 31.7 g/dL (32-36); Mean Corpuscular Volume 88.3 fL (81-99); Mean Platelet Vol. 12.2 fl (6.2-12.0); Monocyte# 0.65 X10^3/uL; Monocyte% 7.1 % (0-10); NRBC Flagged by Analyzer 0 % (0-5); Neutrophil # 5.68 X10^3/uL (2.7-7.7); Neutrophil % 61.8 % (47-70); Platelet Count 304 K/mm3 (150-450); RBC Distribution Width SD 44.9 fl (35.1-43.9); Red Blood Count 4.61 M/mm3 (4.2-5.4); White Blood Count 9.2 K/mm3 (4.4-11.0)
[2022-10-17 18:22] LABS: ALB/GLOB Ratio 1.1 RATIO (0.9-2.4); AST(SGOT) 21 U/L (15-37); Alanine Aminotransfer ALT/SGPT 19 U/L (13-56); Albumin, Serum 3.7 g/dL (3.2-5.0); Alkaline Phosphatase 88 U/L (45-117); Anion Gap 7 (5-15); BUN 16 mg/dL (7-18); BUN/Creat Ratio 20.9 RATIO (10-20); Calcium,Total 8.8 mg/dL (8.5-10.1); Chloride 101 mmol/L (98-107); Creatinine, Serum 0.77 mg/dL (0.55-1.02); EST Glomerular Filtration Rate 86 mL/min (>60); Est Glom Filt Rate - Afr Amer 104 mL/min (>60); Globulin 3.5 g/dL (2.2-4.2); Glucose 65 mg/dL (74-106); Potassium 3.9 mmol/L (3.5-5.1); Protein, Total 7.2 g/dL (6.4-8.2); Sodium Level 138 mmol/L (136-145); Thyroid Stim Hormone (TSH) 2.91 uIU/mL (0.358-3.74)
== END | disposition home or self-care (01) ==
LOC: POLAB3 14:14
PROVIDERS: PCP Family Medicine Geriatric Medicine; Visit Provider Family Medicine Geriatric Medicine
DX: R53.83 Other fatigue (principal)
CPT/HCPCS: 36415; 80053; 84443; 85025

== ENCOUNTER → 2022-10-19 | Outpatient (CLI) | payer BC, SELFPAY ==
--- NOTE | 2022-10-19 15:26 | CT_ITS ---
STUDY: CT BRAIN WITHOUT CONTRAST REASON FOR EXAM: Female, 46 years old. Head injury RADIATION DOSAGE (If Supplied By Facility): CTDIvol = ( 44.99 ) mGy, DLP = ( 779.24 ) mGycm TECHNIQUE: Transaxial CT imaging of the brain was performed without administration of intravenous contrast material. Individualized dose optimization techniques were used for this CT. COMPARISON: 12/03/2019 FINDINGS: There is no acute bleed or infarct. There are normal white matter tracts. The ventricles are normal in configuration. There is no hydrocephalus. The visualized paranasal sinuses are clear. The mastoid air cells are well aerated. There is no skull fracture. CT/Brain/Head without Contrast IMPRESSION: No acute intracranial abnormality. Electronically Signed: Hermilo Galeas MD at 15:48 EST ,
== END | disposition home or self-care (01) ==
LOC: CT 15:21
PROVIDERS: PCP Family Medicine Geriatric Medicine; Visit Provider Family Medicine Geriatric Medicine
DX: S09.90XA Unspecified injury of head, initial encounter (principal); X58.XXXA Exposure to other specified factors, initial encounter
CPT/HCPCS: 70450

== ENCOUNTER 2022-11-21 16:30 | Outpatient (RCR) | payer BC, SELFPAY ==
--- NOTE | 2022-10-11 17:41 | HP.PTEVAL ---
Patient's Visit Information VIRGINIA JOHNSTON is a 46 year old F referred to Physical Therapy by Dr. Bishnu Delacruz DPM with a diagnosis of R peroneal tendonitis. Date of Evaluation: 10/11/22 Physical Therapist: Pacheco Alejandre DPT, OCS, CSCS - Visit Plan Frequency: 3x /Week Duration: 4-6 Weeks Plan: 3x/week for 4-6 week for. 1. US nonthermal to R perneus brevis, cross fiction massage TENS if needed.Rollpouot gastroc and peroneals and stretch. 2. eccentric eversion and TB ankle strength. 3. Stretch and PROM to R ankle - Subjective R foot hurts. I walk on the side of my foot. Better since got better shoes. Had severe pain in r foot since early April insidously. Pain is distal metatarsal and into arch. Worse when on it alot. Got new shoes and orthoitics and they help alot. Since July. new shoes last Saturday. Shoes helped 80%. Used to be 8-9 /10 and limped out of work. 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 Injured self at work so is light duty due to wrist. Foot is better since then. Sleep is not interrupted anymore but it has in the past, fran horses in feet wake her up. Basic ADLs are getting done but they can hurt in WB. No real hobbies: No regular exercises. - Pain R foot Pain Intensity (Out of 10): 4 Pain Intensity Range: 0, 4 - Objective R antalgia slightly in gait today but not bad and is getting pushoff. walks with and without shoes on and orthotics in. Transfer I bed and chair. Tender to palpation over peroneus brevis tendon and longus insertion. Eversion hurts to resist 3+ moderateley, other ankle motions 4/5 and not painful, heel raise is painful laterally. Tends to walk on outside of foot without orthotics in. Inversion ROM is tight on R and 24 vs 30 on L. Inversion and PF symmetrical. DF to -3 AROM B. reflexes 2/3 patella and achilles. Sensation to gross light touch WNL to gross light touch. - talar tilt. - Balance/Special Test Scores Lower Extremity Functional Score: 49 - Goals Goal 1:: Full symmetrical ROM of B ankles without pain Goal Time Frame: 4-6 Weeks Goal 2:: Walk without antalgia into and out of clinic after work Goal Time Frame: 4-6 Weeks Goal 3:: Patient feel pain 95% better at 1/10 at worst. Goal Time Frame: 4-6 Weeks Goal 4:: I management of condition Goal Time Frame: 4-6 Weeks Goal 5:: back to full duty at work without pain(wrist vs ankle) Goal Time Frame: 4-6 Weeks - Rehabilitation Potential Physical Therapy Diagnosis: R peroneal tendonitis causing mobility issues Rehabilitation Potential: Fair - Anticipated Interventions Patient/Client Instruction: Educate patient on: Condition, Plan of Care For the Purpose of:: To decrease pain, To increase ROM, To improve nutrient delivery to tissue, To improve muscle performance and motor function, To increase tolerance to activity/condition/position Therapeutic Exercise to Include: Strength training, Postural training, Flexibilty training, Passive ROM, Active ROM For the Purpose of:: To decrease pain, To increase ROM, To improve nutrient delivery to tissue, To improve muscle performance and motor function, To increase tolerance to activity/condition/position, To improve ability of physical actions for home/community/work/leisure Manual Therapy Techniques to Include: Passive ROM, Soft tissue mobilization For the Purpose of:: To decrease pain, To increase ROM, To improve nutrient delivery to tissue, To improve muscle performance and motor function, To increase tolerance to activity/condition/position TENS: Yes Ultrasound (thermal/non thermal): Yes - nonthermal For the Purpose of:: To decrease pain, To decrease swelling/inflammation, To increase ROM, To improve nutrient delivery to tissue Thank you for the opportunity to evaluate your patient. For Medicare and Medicare HMO plans, please review the plan of care and approve it. It will need to be FAXED BACK to us at [phone] for Medicare purposes. For Medicare only, by signing this I certify the plan of care. Please let me know if there are questions or concerns regarding this plan of care. Physician Signature: Date:
--- NOTE | 2023-01-24 11:26 | HP.PT.NRP ---
VIRGINIA JOHNSTON was seen in my office for initial evaluation on 10/11/22. The following Plan of Care was established for this patient: Initial Frequency: 3x /Week Initial Duration: 4-6 Weeks Patient/Client Instruction: Educate patient on: Condition, Plan of Care For the Purpose of:: To decrease pain, To increase ROM, To improve nutrient delivery to tissue, To improve muscle performance and motor function, To increase tolerance to activity/condition/position Therapeutic Exercise to Include: Strength training, Postural training, Flexibilty training, Passive ROM, Active ROM For the Purpose of:: To decrease pain, To increase ROM, To improve nutrient delivery to tissue, To improve muscle performance and motor function, To increase tolerance to activity/condition/position, To improve ability of physical actions for home/community/work/leisure Manual Therapy Techniques to Include: Passive ROM, Soft tissue mobilization For the Purpose of:: To decrease pain, To increase ROM, To improve nutrient delivery to tissue, To improve muscle performance and motor function, To increase tolerance to activity/condition/position TENS: Yes Ultrasound (thermal/non thermal): Yes - nonthermal For the Purpose of:: To decrease pain, To decrease swelling/inflammation, To increase ROM, To improve nutrient delivery to tissue This patient was last seen in our office 11/21/22. Pertinent comments regarding their Physical therapy will appear below: Pt seen 12 visits of POC but cancelled last visit without rescheduling. At last recheck she was 50% better. at this point, it has been almost two months and I will discontinue due to nonattendance. At this point I will be discontinuing this patient from physical therapy. I would be happy to see this patient again in the future if found appropriate by the physician. Thank you! Pacheco Alejandre, DPT, OCS, CSCS Balance/Gait/Functional tests - Balance/Special Test Scores Lower Extremity Functional Score: 49
== END 2022-11-21 19:00 | disposition home or self-care (01) ==
LOC: PT 16:30
PROVIDERS: PCP Family Medicine Geriatric Medicine; Visit Provider Podiatrist
DX: M76.71 Peroneal tendinitis, right leg (principal)
CPT/HCPCS: 97014; 97035; 97110; 97140; 97161; 97530; G0283

== ENCOUNTER 2022-11-26 16:30 | Outpatient (RCR) | payer OTHER, BC, SELFPAY ==
--- NOTE | 2022-10-30 07:35 | HP.OTEVAL_ITS ---
Patient's Visit Information VIRGINIA JOHNSTON is a 46 year old F, referred to Occupational Therapy by KAYCE Arellano, with a diagnosis of right forearm contusion. Date of Evaluation: 10/29/22 Occupational Therapist: Jordyn Lai, MARTA/Mango, CHT - Subjective this 46 year old female was seen for OT eval with dx of right forearm contusion. Oct 09 2022 had a fall while working at [employer]- pt states she fell on forearm and it painful/sore. pt states she is right handed and at this time is working light duty at work and works 8 hour days 5 days a week. pt states she has a lot of twisting of wrist. [facility] did give her a wrist brace but she has not been wearing it as she feels it is to big- pt states she been wrapping with lan wrap. pain is better but still limiting with ADLs and work tasks. - Pain right forearm 5 Pain Intensity Range: 2, 8 - ROM Forearm: right WNL left WNL Wrist: right 55/55 left 65/70 - Strength Manager Of Corporate: right 30# left 45# Lateral Pinch: right 8# left 8# Tripod Pinch: right 6# left 6# - Sensation Sensation Comments: denies - Quick DASH-Disab of Arm,Shoulder& Hand Quick DASH Score: 55.0000 - Goals Goal:: pt will demo a increase in right educational programming director strength by 15# to increase pts ind. with ADLs and IADLs by d/c. pt will demo the ability to simulate work tasks as box lifts with 20# or greater with good ergo by d.c Goal:: pt will demo right wrist ROM equal to unaffected UE by d/c. Goal:: pt will report pain no greater than 3/10 with use of right UE with ADLs and IADls by d/c Goal:: pt will report return to her work tasks with understanding body ergo with lift carry and job tasks by d/c - Rehabilitation General Assessment: pt demo palpable pain along ulnar side of forearm, limited ROM and weakness limiting pts IND with ADLs and IADLs. pt would benefit from skilled OT services 3x week for 4 weeks. Rehabilitation Potential: Good - Anticipated Interventions A/AAROM/PROM, Strengthening, Triggerpoint Release, Desensitization, Ergonomic Education, Education re assistive Equipment, Education re Diagnosis, Home Program - Visit Plan Frequency: 3x /Week Duration: 4 Weeks General Plan: will initiate trigger point release to forearm may use US at 100% 1.2 3.3 mhz to right forearm to increase circulation and healing. ed. on why brace is more appropriate as lan wrap constricts and decreases circulation and healing. when pain decreases will initiate isometric, light PRE and transition to work simulated tasks TEXT: Thank you for the opportunity to evaluate your patient. For Medicare and Medicare HMO plans, please review the plan of care and approve it. It will need to be FAXED BACK to us at [phone] for Medicare purposes. Please let me know if there are questions or concerns regarding this plan of care. Physician Signature: Date:
--- NOTE | 2023-02-21 13:44 | HP.OT.NRP ---
VIRGINIA JOHNSTON was seen in my office for initial evaluation on 10/29/22. The following Plan of Care was established for this patient: Initial Frequency: 3x /Week Initial Duration: 4 Weeks Plan: will see if Dr. request more therapy- if so cont. with PRE as tolerated Anticipated Interventions: A/AAROM/PROM, Strengthening, Triggerpoint Release, Desensitization, Ergonomic Education, Education re assistive Equipment, Education re Diagnosis, Home Program This patient was last seen in our office 11/26/22. Pertinent comments regarding their Occupational therapy will appear below: pt was seen for 12 OT sessions. pt did well and no further therapy was ordered Business Analyst Consultant: right 45# left 47# Lateral Pinch: right 13# left 12# Tripod Pinch: right 12# left 10# Wrist: right 60/70 left 65/73 pt d/c at this time At this point I will be discontinuing this patient from occupational therapy. I would be happy to see this patient again in the future if found appropriate by the physician. Thank you! Jordyn Lai, OTR/L, CHT
== END 2022-11-26 19:00 | disposition home or self-care (01) ==
LOC: OT 16:30
PROVIDERS: PCP Family Medicine Geriatric Medicine; Referring Provider Physician Assistant; Visit Provider Physician Assistant
DX: S50.11XD Contusion of right forearm, subsequent encounter (principal)
CPT/HCPCS: 97035; 97110; 97140; 97166; 97530

== ENCOUNTER 2023-03-07 19:52 | Emergency (ER) | payer BC, SELFPAY ==
[2023-03-07 19:53] VITALS: BP 170/92; PULSE 79; RESP 18; TEMP 36.6; O2SAT 98; BMI 44.3
--- NOTE | 2023-03-07 20:43 | ED.VIS.BACK ---
HPI History of Present Illness Chief Complaint: Back [facility] Medical History Acute pharyngitis, unspecified Anxiety ASCUS of cervix with negative high risk HPV Contusion of forearm, right Contusion of right knee COVID-19 Fatigue Headache History of edema Leg cramps Non-smoker Physical exam, pre-employment Restless legs Strain of right knee Umbilical hernia Wears glasses Home Medications citalopram 20 mg tablet 20 mg PO DAILY 10/09/22 [History Last Taken Unknown] naproxen 500 mg tablet 500 mg PO BID 10/16/22 [History Last Taken Unknown] oxybutynin chloride 10 mg tablet,extended release 24 hr 10 mg PO DAILY 12/18/22 [History Last Taken Unknown] Allergy/AdvReac Type Severity Reaction Status Date / Time hydrocodone [From [place]] AdvReac Mild Other Verified 03/07/23 19:55 Family History Father Diabetes Esophageal cancer Mother Diabetes Surgical History H/O hysterectomy for benign disease H/O wrist surgery History of hernia repair Social History household members: spouse current occupational status: employed current occupation: [employer] Smoking Status: Never smoker alcohol intake: current alcohol intake frequency: holidays/special occasions only substance use type: does not use what type of physical activity do you participate in: none seatbelt use: always do you feel safe at home: Yes additional social history: - Rusty EXAM Physical Exam Const Vital Signs: 03/07/23 19:53 Temperature 97.9 F Temperature Source Temporal Pulse Rate 79 Respiratory Rate 18 Blood Pressure 170/92 H Blood Pressure Mean 118 Pulse Ox 98 Oxygen Delivery Method Room Air MDM MDM MDM Narrative Medical decision making narrative: HISTORY OF PRESENT ILLNESS: 47-year-old female presents with back pain. States this began at 10 AM this morning. Pain is located in the lower back and radiates to the right leg. The patient further states she is never had any back surgery, no recent falls or trauma. Patient denies any saddle anesthesia, urinary tension, bowel or bladder incontinence, lower extremity weakness, fever or IV drug use, no recent spinal manipulation or surgery, no recent urinary catheterization. REVIEW OF SYSTEMS: All other systems reviewed and are negative except as noted in the history of present illness. At least 10 review of systems reviewed and are negative except as noted in history of present illness. PHYSICAL EXAM: Nursing triage notes reviewed, Vital signs reviewed Constitutional: please see mdm HENT: MMM Eyes: Pupils equal round and reactive to light, Extraocular muscles intact Neck: No stridor, no JVD, full neck ROM Lungs: Clear to auscultation, No wheezing or rales. No increased work of breathing, no conversational dyspnea, no accessory muscle use, no nasal flaring. No respiratory distress noted Heart: Regular rate and rhythm, No murmurs, No rubs and No gallops, 2+ distal pulses (radial, femoral, posterior tibial) in all extremities Abdomen: Soft, there is no tenderness, rigidity, rebound or guarding, no obvious peritoneal signs, no palpable pulsatile abdominal masses, no auscultated abdominal bruit : No CVAT Extremities: No edema Back: No midline step-offs or deformities, TTP over right lateral lumbar spine and right lumbar buttock junction right over the piriformis. Neuro: Intact sensation L1-S1 dermatomal distributions. Intact 5/5 strength in hip flexion (T12-L3). Knee extension (L2-L4). Ankle dorsiflexion (L4-L5). Ankle plantar flexion (S1). Great toe extension (L5). 2+ patellar and Achilles DTRs. Skin: No rash or lesions noted, no herpetic lesions, no evidence of shingles MEDICAL DECISION MAKING: Chief Complaint: Back pain External records reviewed: X-ray of the lumbar spine 2019 shows no evidence of acute fracture. Factors affecting care: None Social determinants of health: No IV drug use History obtained from others: none Consults: none ALL IMAGES (IF OBTAINED) HAVE BEEN PERSONALLY REVIEWED AND INTERPRETED BY MYSELF. [facility] Narrative: Patient was hemodynamically stable, afebrile and nontoxic-appearing. Exam with right lower lumbar TTP. Consistent with musculoskeletal etiology. I considered the following differential diagnosis: Musculoskeletal back pain, space-occupying lesion of the spinal (epidural abscess, epidural hematoma), cauda equina, conus medullaris, fracture dislocation, AAA, nephrolithiasis, pyelonephritis, aortic dissection The patient presented complaining of back pain. There was no history of recent fall or trauma. There was no evidence to support genitourinary etiology. There is also no evidence to suggest vascular pathology such as AAA dissection. No fevers or other evidence to suspect infectious processes, abscess, osteomyelitis etc. The patient?s neurological exam is normal with normal motor and sensory. There is no saddle paresthesias reported and no bowel or bladder incontinence or retention. I suspect the pain is mechanical in nature. Clinical suspicion, plan of care and management was discussed with the patient. The patient was instructed to follow up with their health care provider. The patient was also instructed to return if the pain worsened, changed, or developed weakness or bowel or bladder trouble. The patient agreed with plan. I completed a structured, evidence-based clinical evaluation to screen for acute non-traumatic spinal emergencies. The patient has a normal detailed neurologic exam and red flag historical factors were negative. The evidence indicates that the patient is very low risk for an acute spinal emergency and this is consistent with my clinical intuition. The risk of further workup is higher than the likelihood of the patient having a spinal epidural abscess or other dangerous emergency spinal condition. It is, therefore, in the patient?s best interest not to do additional emergent testing at this time. Shared Decision-Making I have discussed with the patient my clinical impression and the result of an evidence-based clinical evaluation to screen for spinal epidural abscess and other spinal emergencies, as well as the risk of further testing and hospitalization. The evidence shows that the risk for an acute spinal emergency is less than 1%. Although the risk of an acute spinal emergency has not been completely eliminated, the risks of further testing likely exceed any potential benefit, and the patient agrees with not pursuing further emergent evaluation for causes of back pain at this time. The patient and/or family, caregivers express understanding. The patient and/or family, caregivers agrees with the plan. Total critical care time today provided was at least 0 minutes. This excludes separately billable procedures. Critical care time (if documented) is secondary to the patient having high probability of clinically significant/life threatening deterioration in the patient's condition which required my urgent intervention. Thor Arce DO Discharge Plan Triage Chief Complaint: Back ED Provider: Thor Arce Dx/Rx/DC Orders Clinical Impression: Right lumbar radiculopathy Prescriptions: No Action naproxen 500 mg tablet 500 mg PO BID oxybutynin chloride 10 mg tablet extended release 24hr 10 mg PO DAILY citalopram 20 mg tablet 20 mg PO DAILY Label Comments: Take 1 Tablet orally once per Day for 90 Days Stand Alone Forms: ED Work / School Excuse Primary Care Provider: Hermilo Ray Chi Referrals: Hermilo Ray Chi, MD [Primary Care Provider] - Activity Restrictions/Additional Instructions: Thank you for trusting us with your care today! Please take Tylenol (2 pills, 650 mg), ibuprofen (2 pills, 400 mg) every 6 hours as needed for pain and fever control. Please go to your local pharmacy or drugstore and obtain Salonpas lidocaine patches please apply this to your back twice a day for additional relief. Please return to the emergency department if your symptoms change or worsen. Specifically if develop bowel or bladder incontinence, urinary retention, weakness or loss sensation in your lower extremities Please follow with your primary care physician for further outpatient evaluation and management. Disposition Disposition: Home, Self Care
[2023-03-07 21:47] VITALS: BP 150/74; PULSE 88; RESP 16; O2SAT 99
[2023-03-07] MEDS: dexAMETHasone 4 MG Tablet PO (21:56)
[2023-03-07] MEDS: oxyCODONE 5 MG Tablet PO (21:56)
[2023-03-07] MEDS: Lidocaine 5% Patch 1 PATCH TOPICAL (21:57)
[2023-03-07] MEDS: Ibuprofen 200 MG Tablet 400 MG PO (22:04)
== END 2023-03-07 22:07 | disposition home or self-care (01) ==
PROVIDERS: Emergency Provider Emergency Medicine; PCP Family Medicine Geriatric Medicine; Visit Provider Emergency Medicine
DX: M54.16 Radiculopathy, lumbar region (principal); M54.50 Low back pain, unspecified; Z79.899 Other long term (current) drug therapy
CPT/HCPCS: 99283

== ENCOUNTER → 2023-03-11 | Outpatient (CLI) | payer BC, SELFPAY ==
--- NOTE | 2023-03-11 16:50 | RAD_ITS ---
INDICATION: RIGHT SIDED SCIATICA, RIGHT HIP PAIN EXAMINATION/TECHNIQUE: X-RAY - XR Spine Lumbar Min 4 Views COMPARISON: 03/23/2019. FINDINGS: VERTEBRAE: Preserved vertebral body height. No fracture. No spondylolisthesis. Preservation of the normal lumbar lordosis. No significant facet arthropathy. DISCS: Disc spaces are maintained. INCLUDED ABDOMEN: Included bowel gas pattern is non-obstructive. RAD/L/S Spine Min 4 Views IMPRESSION: No evidence of lumbar spinal fracture or spondylolisthesis. Electronically Signed: Leny Baker MD at 18:26 EDT Reading Location ID and State: [id number] / Tel , Service support ,
--- NOTE | 2023-03-11 17:00 | RAD_ITS ---
INDICATION: RIGHT SIDED SCIATICA, RIGHT HIP PAIN EXAMINATION/TECHNIQUE: X-RAY - XR Hip Unilateral with Pelvis when performed; 2-3 Views COMPARISON: 10/15/2022. FINDINGS: No acute fracture or dislocation. No destructive bone changes. Joint spaces are well-maintained. Normal alignment. Soft tissues are unremarkable. No radiopaque foreign body or soft tissue gas. RAD/HIP, UNI W/ Pelvis 2-3 Views IMPRESSION: No evidence of displaced pelvic or hip fracture. Electronically Signed: Leny Baker MD at 18:27 EDT Reading Location ID and State: [id number] / Tel , Service support ,
== END | disposition home or self-care (01) ==
LOC: RAD 16:45
PROVIDERS: PCP Family Medicine Geriatric Medicine; Referring Provider Family Medicine Geriatric Medicine; Visit Provider Family Medicine Geriatric Medicine
DX: M54.31 Sciatica, right side (principal); M25.551 Pain in right hip
CPT/HCPCS: 72110; 73502

== ENCOUNTER 2023-04-03 09:30 | Outpatient (RCR) | payer BC, SELFPAY ==
--- NOTE | 2023-03-25 13:26 | HP.PTEVAL_ITS ---
Patient's Visit Information Visit Information Visit Information: VIRGINIA JOHNSTON is a 47 year old F referred to Physical Therapy by Dr. Hermilo Ray MD with a diagnosis of R sciatica. Date of Evaluation: 03/25/23 Physical Therapist: Pacheco Alejandre, DPT, OCS, CSCS Visit Plan Frequency: 2-3x /Week Duration: 4-6 Weeks Plan: 2-3x/week for 4-6 weeks if needed for... 1 Home based LB ROM(ext, flexion, rotation given today), quad and HS streches, and DLS core strength adn general body strength to I. Review body mechanics and posture. Subjective Subjective: Back pain for no apparent reason. Started about 3 weeks ago walking at [employer] . Not a familiar pain. Tried stretching it and it would not. Since then has been better. Now less intense. Still present but not often. It is a weird pain. ER visit did not do much but give oxycodone. Helped. Had x ray and not sure of results. Overall 50% better. Pain in back to 810 working at [employer] and cleaning alot and lots of steps all of which make her worse. sitting down is better than being on feet. Hip pain is is R sided near LB but both sides and started same as low back pain. Sleep has been fine after initiall day. Activities are normal at home. Work is normal now but missed at first for 3 days. No c/o bwoel or bladder problems. No regular exercises. Pain LBP: Pain Intensity (Out of 10): 1 Pain Intensity Range: 0 and 8 Objective Objective: Walks into PT I and trasnfers without UE easily, no o4tiswswy of pain. Steps reciprocal with one rail easily without pain. Passively sacral sits and overweight but no evidence of pain with movement today. LB AROM ext min limited no pain, flexion min limited, no pain, SB full with slight R sided pain with L SB. LE AROM WFL, mild tightness HS adn quads but all ROM WFL. reflexes 2/3 patella and achilles B. Sensation WNL to gross light touch in LE strength LE ankles and knees 4/5, hips 3+ abd and extension adn 4- flexion with rotation in contralateral leg. - SLR, - slump test. 3+ core ab strength adn 3 back extensor strength Balance/Special Test Scores Lower Extremity Functional Score: 46 Goals Goal 1:: Pain 99% abolished and 1/10 at worst Goal Time Frame: 4-6 Weeks Goal 2:: I appropriate HEP to limit future problems Goal Time Frame: 4-6 Weeks Goal 3:: Work without increased pain Goal Time Frame: 4-6 Weeks Goal 4:: LEFS score 56 Goal Time Frame: 4-6 Weeks Rehabilitation Potential Physical Therapy Diagnosis: LBP likely muscular in nature. Rehabilitation Potential: Good Anticipated Interventions Patient/Client Instruction: Educate patient on: Condition and Plan of Care For the Purpose of:: To decrease pain, To increase ROM, To improve nutrient delivery to tissue, To improve muscle performance and motor function, To improve ability of physical actions for home/community/work/leisure and To improve gait and locomotor functions Therapeutic Exercise to Include: Strength training, Gait and locomotor training, Passive ROM, Active ROM and Dynamic Lumbar Stabilization For the Purpose of:: To decrease pain, To increase ROM, To improve nutrient delivery to tissue, To improve muscle performance and motor function and To increase tolerance to activity/condition/position Manual Therapy Techniques to Include: Mobilization, Passive ROM and Soft tissue mobilization For the Purpose of:: To decrease pain and To increase ROM Text: Thank you for the opportunity to evaluate your patient. For Medicare and Medicare HMO plans, please review the plan of care and approve it. It will need to be FAXED BACK to us at [phone] for Medicare purposes. For Medicare only, by signing this I certify the plan of care. Please let me know if there are questions or concerns regarding this plan of care. Physician Signature: Date:
--- NOTE | 2023-04-19 09:09 | HP.PT.NRP ---
Patient Information Patient Information: VIRGINIA JOHNSTON was seen in my office for initial evaluation on 03/25/23. The following Plan of Care was established for this patient: POC Established Initial Frequency: 2-3x /Week Initial Duration: 4-6 Weeks Anticipated Interventions Patient/Client Instruction: Educate patient on: Condition and Plan of Care For the Purpose of:: To decrease pain, To increase ROM, To improve nutrient delivery to tissue, To improve muscle performance and motor function, To improve ability of physical actions for home/community/work/leisure and To improve gait and locomotor functions Therapeutic Exercise to Include: Strength training, Gait and locomotor training, Passive ROM, Active ROM and Dynamic Lumbar Stabilization For the Purpose of:: To decrease pain, To increase ROM, To improve nutrient delivery to tissue, To improve muscle performance and motor function and To increase tolerance to activity/condition/position Manual Therapy Techniques to Include: Mobilization, Passive ROM and Soft tissue mobilization For the Purpose of:: To decrease pain and To increase ROM Last Seen Last Seen: This patient was last seen in our office 04/03/23. Pertinent comments regarding their Physical therapy will appear below: Pt seen 3 visits of POC and was doing well. She no showed for her last 3 visits and I will discontinue her from my care at this time due to nonattendance. At this point I will be discontinuing this patient from physical therapy. I would be happy to see this patient again in the future if found appropriate by the physician. Thank you! Pacheco Alejandre, DPT, OCS, CSCS Balance/Gait/Functional tests Balance/Special Test Scores Lower Extremity Functional Score: 46
== END 2023-04-03 19:00 | disposition home or self-care (01) ==
LOC: PT 09:30
PROVIDERS: PCP Family Medicine Geriatric Medicine; Referring Provider Family Medicine Geriatric Medicine; Visit Provider Family Medicine Geriatric Medicine
DX: M25.551 Pain in right hip (principal); M54.31 Sciatica, right side
CPT/HCPCS: 97110; 97161

== ENCOUNTER → 2023-07-11 | Outpatient (CLI) | payer BC, SELFPAY ==
--- NOTE | 2023-07-11 17:27 | RAD_ITS ---
STUDY: X-RAY - ABDOMEN/PELVIS REASON FOR EXAM: Female, 47 years old. Abdominal pain. TECHNIQUE: Single AP view of the abdomen / pelvis. COMPARISON: None. FINDINGS: Normal visualized lung bases. Normal bowel gas pattern with no disproportionate dilatation. The visualized liver, spleen and kidneys are grossly normal in size and morphology. Normal soft tissue structures. Normal visualized osseous structures. RAD/Abdomen Single View IMPRESSION: No acute abnormality of the visualized lower chest, abdomen or pelvis. Electronically Signed: Chema Mccoy MD at 9:59 EDT ,
[2023-07-11 17:36] LABS: Absolute Lymphocyte Count 2.27 X10^3/uL (0.83-4.51); Absolute Neutrophil Count 6.9 X10^3/uL (2.0-7.7); Basophil# 0.06 X10^3/uL; Basophil% 0.6 % (0-1); Eosinophil# 0.36 X10^3/uL; Eosinophils% 3.5 % (0-5); Hematocrit 43.7 % (37-47); Hemoglobin 13.8 g/dL (12.0-15.0); Lymphocyte # 2.27 X10^3/ul (0.83-4.51); Lymphocyte % 21.8 % (19-41); Mean Corp Hgb Conc 31.6 g/dL (32-36); Mean Corpuscular Hgb 28.2 pg (27.0-32.0); Mean Corpuscular Volume 89.2 fL (81-99); Monocyte# 0.74 X10^3/uL; Monocyte% 7.1 % (0-10); NRBC Flagged by Analyzer 0 % (0-5); Neutrophil # 6.94 X10^3/uL (2.7-7.7); Neutrophil % 66.5 % (47-70); Platelet Count 322 K/mm3 (150-450); RBC Distribution Width CV 13.2 % (11.6-14.6); RBC Distribution Width SD 43.2 fl (35.1-43.9); White Blood Count 10.4 K/mm3 (4.4-11.0)
[2023-07-11 18:20] LABS: ALB/GLOB Ratio 0.9 RATIO (0.9-2.4); AST(SGOT) 12 U/L (15-37); Alanine Aminotransfer ALT/SGPT 15 U/L (13-56); Albumin, Serum 3.6 g/dL (3.2-5.0); Alkaline Phosphatase 96 U/L (45-117); Anion Gap 5 (5-15); BUN 13 mg/dL (7-18); BUN/Creat Ratio 15.9 RATIO (10-20); Calcium,Total 8.9 mg/dL (8.5-10.1); Chloride 105 mmol/L (98-107); Creatinine, Serum 0.82 mg/dL (0.55-1.02); EST Glomerular Filtration Rate 80 mL/min (>60); Est Glom Filt Rate - Afr Amer 96 mL/min (>60); Glucose 105 mg/dL (74-106); Protein, Total 7.6 g/dL (6.4-8.2); Sodium Level 139 mmol/L (136-145)
== END | disposition home or self-care (01) ==
PROVIDERS: PCP Family Medicine Geriatric Medicine; Referring Provider Family Medicine Geriatric Medicine; Visit Provider Family Medicine Geriatric Medicine
DX: R10.9 Unspecified abdominal pain (principal)
CPT/HCPCS: 36415; 74018; 80053; 85025

== ENCOUNTER → 2023-10-02 | Outpatient (CLI) | payer BC, SELFPAY ==
--- OUTSIDE RECORDS SUMMARY | 2023-10-02 14:45 | XMS RPT_ITS | CCD ---
Author Name Unknown Address [address] [place] [address] Organization [facility] Care Team Providers Care Vending Mechanic Name Role Phone RAGHAVENDRA, PRECIOUS (PA) Unavailable Unavailable RAGHAVENDRA, PRECIOUS (PA) Unavailable Unavailable RAGHAVENDRA, PRECIOUS (PA) Unavailable Unavailable RAGHAVENDRA, PRECIOUS (PA) Unavailable Unavailable RAGHAVENDRA, PRECIOUS (PA) Unavailable Unavailable RAGHAVENDRA, PRECIOUS (PA) Unavailable Unavailable RAGHAVENDRA, PRECIOUS (PA) Unavailable Unavailable Problems Problem Classification Problem Date Documented Da te Episodic/Chronic Unclassified (1 source) Unknown / UNK(Unknown) Onset: 06-06-2018 Results Test Name Value Interpretation Reference Range Facil ity Encounters Encounter Date Encounter Type Care Provider Facility Start: 06-06-2018 End: 06-06-2018 Patient encounter PRECIOUS ([place]) [facility] Start: 05-29-2018 End: 06-03-2018 Patient encounter [facility]CIOUS ([place]) [facility] Start: 08-20-2017 End: 08-22-2017 Patient encounter [facility] ([place]) [facility] Start: 08-14-2017 End: 08-15-2017 Patient encounter [facility]) [facility] Start: 08-12-2017 End: 08-13-2017 Patient encounter [facility]) [facility] Start: 08-06-2017 End: 08-09-2017 Patient encounter [facility]) [facility] Summary Purpose Family History No Family History Records Found Advance Directives No Advanced Directives Records Found Additional Source Comments INFORMATION SOURCE (unrecogn ized section and content) FOR RECORDS PERTAINING TO PATIENTS WHO ARE OR HAVE BEEN ENROLLED IN A CHEMICAL DEPENDENCY/SUBSTANCEABUSE PROGRAM, SOME INFORMATION MAY BE OMITTED. This clinical summary was aggregated from multiple sources. Caution should be exercised in using it in the provision of clinical care. This summary normalizes information from multiple sources, and as a consequence, information in this document may materially change the coding, format and clinical context of patient data. In addition, data may be omitted in some cases. CLINICAL DECISIONS SHOULD BE BASED ON THE PRIMARY CLINICAL RECORDS. [facility]. provides no warranty or guarantee of the accuracy or completeness of information in this document.
== END | disposition home or self-care (01) ==
LOC: LABSPEC 14:23
PROVIDERS: PCP Family Medicine Geriatric Medicine; Visit Provider Family Medicine Geriatric Medicine
DX: N39.0 Urinary tract infection, site not specified (principal)
CPT/HCPCS: 87086

== ENCOUNTER 2024-11-07 11:57 | Emergency (ER) | payer OTHER, SELFPAY ==
[2024-11-07 11:59] VITALS: BP 178/98; PULSE 107; RESP 18; TEMP 37.1; O2SAT 99; BMI 39.3
--- NOTE | 2024-11-07 12:12 | ED.VIS.LOWEX ---
HPI History of Present Illness Chief Complaint: Lower Extremity Injury Narrative Narrative: 48-year-old female who denies significant past medical history presents with injury to her left lower leg that she sustained prior to arrival. 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 Patient went to jon after her. She fell onto the border that borders the playground. She had misstepped and had a mechanical fall. She states that her left anterior tibial area approximately took the brunt of her fall. She denies hitting her head or loss of consciousness, no other injury. She was able to get up and drive herself here. She has not taken any analgesics. She states that in the area where she fell onto her left lower leg feels numb. No ankle pain. No knee pain. PFSH PFS Medical History Contusion of right knee Strain of right knee Physical exam, pre-employment Acute pharyngitis, unspecified Contusion of forearm, right COVID-19 Headache Fatigue Wears glasses Anxiety Restless legs Non-smoker Leg cramps History of edema ASCUS of cervix with negative high risk HPV Umbilical hernia Home Medications ?Medication ?Instructions ?Recorded ?Last Taken ?Type citalopram 20 mg tablet 20 mg PO DAILY 10/09/22 Unknown History naproxen 500 mg tablet 500 mg PO BID 10/16/22 Unknown History oxybutynin chloride 10 mg 10 mg PO DAILY 12/18/22 Unknown History tablet,extended release 24 hr Allergy/AdvReac Type Severity Reaction Status Date / Time hydrocodone (From [place]) AdvReac Mild Other Verified 03/07/23 19:55 Family History Father Diabetes Esophageal cancer Mother Diabetes Surgical History H/O hysterectomy for benign disease H/O wrist surgery History of hernia repair Social History household members: spouse current occupational status: employed current occupation: [employer] Smoking Status: Never smoker alcohol intake: current alcohol intake frequency: holidays/special occasions only substance use type: does not use what type of physical activity do you participate in: none seatbelt use: always do you feel safe at home: Yes additional social history: - Rusty ROS ROS ED ROS Narrative Focused review of systems positive for left anterior tibial pain. No ankle or knee pain. No difficulty walking. Denies other injury. No neck pain. No hitting of head or loss of consciousness. EXAM Physical Exam Narrative Exam Narrative: Afebrile. Vital signs noted. Nontoxic-appearing. Cardiovascular examination reveals mild tachycardia. Lungs clear to auscultation bilaterally. Abdomen soft nontender with positive bowel sounds. Examination of the left lower extremity reveals diffuse tenderness in the anterior tibial area. She is able to lift her left leg off the bed without difficulty. Flexion and extension of left knee intact. Left dorsalis pedis pulse palpable. No crepitance of leg. No erythema. No broken skin. Const Vital Signs: 11/07/24 11:59 Temperature 98.7 F Temperature Source Temporal Pulse Rate 107 H Respiratory Rate 18 Blood Pressure 178/98 H Blood Pressure Mean 124 Pulse Ox 99 Oxygen Delivery Method Room Air MDM MDM MDM Narrative Medical decision making narrative: Differential diagnosis includes but not limited to lower leg contusion versus fracture. I have low suspicion for tibial plateau fracture. There is no crepitance on examination so I do not feel that she would have a necrotizing fasciitis, and history and physical does not support cellulitis. Feel she probably has more of a neuropraxia injury in her area of numbness. She was given naproxen here in the emergency department, and x-rays obtained in 2 views of the left tibia and fibula to help rule out fracture. I do not feel she requires laboratory work. On my independent interpretation of her x-rays there is no evidence of acute fracture. I reviewed the radiology report which confirms my independent interpretation. At this point in time, she was told to return to her next shift on Saturday, 2 days from now with limitations of limited use of her left lower extremity until cleared by [facility] provider. She can take [id number] medications as needed for pain. Return instructions to the emergency department were reviewed. She was able to ambulate to the bathroom without difficulty here in the emergency department. Disposition is discharged home in stable condition. History & Record Review Discussion w/independent historian: Patient Radiography Diagnostic Testing: Clinical Impression(s) from Imaging Studies Tibia/Fibula X-Ray 11/07/24 12:15 IMPRESSION: No acute osseous abnormality in the left tibia and fibula Reading Location: [facility] Discharge Plan Triage Chief Complaint: Lower Extremity Injury ED Provider: J Luis Irving Dx/Rx/DC Orders Clinical Impression: Contusion of left lower leg, initial encounter, Fall Instructions: ED Contusion, Lower Extremity, ED Mechanical Fall Prescriptions: No Action naproxen 500 mg tablet 500 mg PO BID oxybutynin chloride 10 mg tablet extended release 24hr 10 mg PO DAILY citalopram 20 mg tablet 20 mg PO DAILY Patient Comments: Take 1 Tablet orally once per Day for 90 Days Primary Care Provider: Hermilo Ray Chi Referrals: Hermilo Ray Chi, MD [Primary Care Provider] - Activity Restrictions/Additional Instructions: Follow-up with the [facility] or a [facility] provider of your choice. Take [id number] medications like Tylenol and/or ibuprofen for pain. Print Language: Malaysian Disposition Disposition: Home, Self Care
[2024-11-07] MEDS: Naproxen 500 MG Tablet PO (12:15)
--- NOTE | 2024-11-07 12:15 | RAD_ITS ---
PROCEDURE: TIBIA FIBULA 2 VIEWS REASON FOR EXAM: Trauma TECHNIQUE: 2 view(s) of each tibia and fibula COMPARISON: None. FINDINGS: LEFT TIBIA / FIBULA: No fracture. No suspicious bone lesion. Normal alignment at the knee and ankle. Soft tissues are unremarkable. RAD/Tibia & Fibula 2 Views IMPRESSION: No acute osseous abnormality in the left tibia and fibula Reading Location: [facility]
== END 2024-11-07 13:07 | disposition home or self-care (01) ==
LOC: ED 12:52
PROVIDERS: Emergency Provider Emergency Medicine; PCP Family Medicine Geriatric Medicine; Referring Provider Emergency Medicine; Visit Provider Emergency Medicine
DX: S80.12XA Contusion of left lower leg, initial encounter (principal); W18.09XA Striking against other object with subsequent fall, initial encounter; Y93.02 Activity, running; Y99.0 Civilian activity done for income or pay; Y92.838 Other recreation area as the place of occurrence of the external cause; Z79.899 Other long term (current) drug therapy; Z90.710 Acquired absence of both cervix and uterus
CPT/HCPCS: 73590; 99282

== ENCOUNTER → 2024-11-11 | Outpatient (CLI) | payer OTHER, SELFPAY ==
[2024-11-11 16:23] LABS: Basophil# 0.07 X10^3/uL; Basophil% 0.5 % (0-1); Eosinophil# 0.44 X10^3/uL; Eosinophils% 3.4 % (0-5); Hematocrit 40.8 % (37-47); Hemoglobin 13.2 g/dL (12.0-15.0); Mean Corp Hgb Conc 32.4 g/dL (32-36); Mean Corpuscular Hgb 28.6 pg (27.0-32.0); Mean Corpuscular Volume 88.5 fL (81-99); Mean Platelet Vol. 11.1 fl (6.2-12.0); Monocyte# 0.62 X10^3/uL; Monocyte% 4.8 % (0-10); NRBC Flagged by Analyzer 0 % (0-5); Neutrophil # 8.96 X10^3/uL (2.7-7.7); Neutrophil % 69.8 % (47-70); Platelet Count 318 K/mm3 (150-450); RBC Distribution Width SD 45.1 fl (35.1-43.9); Red Blood Count 4.61 M/mm3 (4.2-5.4); White Blood Count 12.9 K/mm3 (4.4-11.0)
[2024-11-11 16:51] LABS: ALB/GLOB Ratio 1.2 RATIO (0.9-2.4); AST(SGOT) 18 U/L (<=31); Alanine Aminotransfer ALT/SGPT 7 U/L (<=34); Albumin, Serum 3.8 g/dL (3.5-5.0); Alkaline Phosphatase 91 U/L (35-104); Anion Gap 8 (5-15); BUN 10 mg/dL (4-19); BUN/Creat Ratio 14.7 RATIO (10-20); Calcium 9.1 mg/dL (7.6-11.0); Chloride 101 mmol/L (96-108); Creatinine, Serum 0.7 mg/dL (0.6-1.0); EST Glomerular Filtration Rate 107 (>60); Globulin 3.2 g/dL (2.2-4.2); Glucose 150 mg/dL (70-99); Potassium 4.1 mmol/L (3.3-5.1); Protein, Total 6.9 g/dL (5.9-8.4); Sodium Level 137 mmol/L (133-145); Total Bilirubin 0.45 mg/dL (0.00-1.30)
[2024-11-11 23:49] LABS: Cholesterol 138 mg/dL (<=200); High Density Lipoprotein 28 mg/dL; Low Density Lipoprotein Calc. 63 mg/dL; Triglycerides 237 mg/dL; Very Low Density Lipoprotein 47 mg/dL (5-40); cholesterol:hdl ratio screen 4.93
[2024-11-12 14:06] LABS: Hemoglobin A1c 5.9 % (<=5.6)
== END | disposition home or self-care (01) ==
LOC: POLAB3 15:50
PROVIDERS: PCP Family Medicine Geriatric Medicine; Visit Provider Family Medicine Geriatric Medicine
DX: E78.5 Hyperlipidemia, unspecified (principal); R53.83 Other fatigue; R73.09 Other abnormal glucose
CPT/HCPCS: 36415; 80053; 80061; 83036; 84443; 85025

== ENCOUNTER → 2024-11-12 | Outpatient (CLI) | payer OTHER, SELFPAY ==
--- NOTE | 2024-11-12 12:42 | VDLE_ITS ---
Reason For Study Reason For Study: Swelling RIGHT LEFT CFV is compressible, spontaneous, phasic, competent GSV is normal. and demonstrates normal augmentation. CFV is compressible, spontaneous, phasic, competent, Procedure and demonstrates normal augmentation. This is a venous duplex using B-mode, color flow and FV is compressible, spontaneous, phasic, competent spectral Doppler. and demonstrates normal augmentation. Exam performed in department. POP V is compressible, spontaneous, phasic, competent A preliminary report was called and/or faxed to Herm[facility] and demonstrates normal augmentation. Armand Ray MD. T/P Trunk is compressible. PTV is compressible. LT PerV is compressible. VL/Venous Duplex US, Unilateral Interpretation Summary Deep veins of the left lower extremity are patent and compressible segmentally. There is no evidence of left lower extremity deep vein thrombosis. The left great saphenous vein appears patent an d compressible segmentally. Ordering Physician: Hermilo Ray Chi Referring Physician: Hermilo Ray Chi Performed By: Anne Marie Velázquez RVT and Student
== END | disposition home or self-care (01) ==
LOC: CVS 12:34
PROVIDERS: PCP Family Medicine Geriatric Medicine; Referring Provider Family Medicine Geriatric Medicine; Visit Provider Family Medicine Geriatric Medicine
DX: M79.89 Other specified soft tissue disorders (principal)
CPT/HCPCS: 93971

== ENCOUNTER → 2024-11-18 | Outpatient (CLI) | payer OTHER, SELFPAY ==
--- NOTE | 2024-11-18 13:31 | BI_ITS ---
PROCEDURE: SCRN MAMM (CAD)W/OMARI BILAT REASON FOR EXAM: F, Age 49 y/o, aunt with breast cancer. Maternal grandfather with breast cancer. Annual follow-up. TECHNIQUE: Bilateral screening digital breast tomosynthesis with 2D and 3D images. Computer aided detection. COMPARISON: Prior exam(s) dating back to August 23, 2021.. FINDINGS: There are scattered areas of fibroglandular density. Stable examination. No suspicious masses, areas of developing architectural distortion, or suspicious calcifications. BI/SCRN MAMM (CAD)W/OMARI BILAT IMPRESSION: BI-RADS 1: NEGATIVE. RECOMMEND ANNUAL MAMMOGRAPHIC SCREENING. Follow-up code: Routine Follow-up The patient will be notified of the results by letter. Reading Location: [id number]
== END | disposition home or self-care (01) ==
LOC: OPBI 13:29
PROVIDERS: PCP Family Medicine Geriatric Medicine; Referring Provider Family Medicine Geriatric Medicine; Visit Provider Family Medicine Geriatric Medicine
DX: Z12.31 Encounter for screening mammogram for malignant neoplasm of breast (principal); Z80.3 Family history of malignant neoplasm of breast
CPT/HCPCS: 77063; 77067